=== PATIENT | male | born 1945 | race Caucasian/White ===

== ENCOUNTER 2017-11-08 15:34 | Inpatient (IN) ==
[2017-11-08] MEDS ORDERED: Ipratropium/Albuterol Neb 3 ML IH ONE ×2 (15:44→17:06)
[2017-11-08] MEDS ORDERED: methylPREDNISolone 125 MG/2 ML VIAL IVP ONE (15:44)
--- NOTE | 2017-11-08 15:44 | Emergency Department Note ---
Disposition Clinical Impression: COPD exacerbation Chest pain Qualifiers: Chest pain type: unspecified Qualified Code(s): R07.9 - Chest pain, unspecified Disposition: Admitted As Inpatient Condition: Fair Referrals: NONE,PCP [Primary Care Provider] - Forms: ED Satisfaction Letter Time of Disposition: 16:48 Chest Pain HPI - General Chief Complaint: ED Chest Pain Stated Complaint: CP Time Seen by Provider: 11/08/17 15:38 Source: patient Mode of arrival: ambulatory Limitations: no limitations Vital Signs Reviewed: Yes Nursing Notes Reviewed: Yes - History of Present Illness HPI Narrative: 71-year-old whose had a previous heart attack comes in complaining of chest pain that began about 11 AM. States is similar to what he had with his previous IA. Pt complaint: chest pain Onset (ago): [employer] Duration: constant Onset: during rest Pain Location: substernal, left chest Severity scale (1-10): 10 Quality: tightness, aching Pain Radiation: none Improves with: nothing Worsens with: nothing Associated symptoms: Reports: nausea Treatments prior to arrival chest pain: none - Related Data Home Medications Medication Instructions Recorded Confirmed ALPRAZolam [Xanax 0.25 MG Tablet] 0.25 mg PO HS 11/08/17 11/08/17 Aspirin [Lo-Dose Aspirin EC] 81 mg PO DAILY 11/08/17 11/08/17 Clopidogrel [Plavix] 75 mg PO DAILY 11/08/17 11/08/17 Terazosin HCl 10 mg PO HS 11/08/17 11/08/17 Zolpidem Tartrate [Zolpidem 5 mg PO HS 11/08/17 11/08/17 Tartrate] amLODIPine [Norvasc] 5 mg PO DAILY 11/08/17 11/08/17 Allergies Allergy/AdvReac Type Severity Reaction Status Date / Time Hydromorphone [From Dilaudid] AdvReac Hallucinati Verified 11/08/17 15:38 ng ketorolac [From Toradol] AdvReac Hallucinati Verified 11/08/17 15:38 ng All systems ED: reviewed and negative except as stated. Constitutional: Denies: fever, chills, weakness, weight change Eyes: Denies: eye pain, eye discharge, vision change ENT ED: Denies: ear pain, throat pain, dental pain, hearing loss, epistaxis, congestion, dysphagia Cardiovascular: Reports: chest pain. Denies: palpitations, dyspnea on exertion , edema, syncope Respiratory: Denies: cough, dyspnea, wheezes, hemoptysis, stridor Gastrointestinal: Denies: abdominal pain, nausea, vomiting, diarrhea, constipation, hematemesis, melena, hematochezia Genitourinary: Denies: urgency, dysuria, frequency, hematuria Musculoskeletal: Denies: back pain, neck pain, arthralgia, myalgia Integumentary: Denies: rash, abrasion, lesions Neurological: Denies: headache, weakness, numbness, paresthesias, confusion, abnormal gait, vertigo Psychiatric: Denies: anxiety, depression, suicidal thoughts, homicidal thoughts , auditory hallucinations, visual hallucinations Endocrine: Denies: fatigue Hematological/Lymphatic: Denies: easy bleeding, easy bruising Allergic/Immunologic: Denies: facial swelling, urticaria Chest Pain PMH - Past Medical History Medical history: Reports: CHF, coronary artery disease, hypertension, myocardial infarction Psychiatric history: Reports: no psych history - Social History Smoking Status: Current every day smoker Alcohol use: Reports: none Drug use: Reports: none Physical Exam - General Limitations: no limitations General appearance: alert - Head Head exam: atraumatic, normocephalic, normal inspection - Eye Eye exam: Present: normal appearance, PERRL, EOMI - ENT ENT exam: normal exam, normal oropharynx, mucous membranes moist - Neck Neck exam: Present: normal inspection, full ROM, trachea midline - Chest Chest inspection: Present: normal inspection, symmetric chest wall rise - Respiratory Respiratory exam: Present: normal lung sounds bilaterally - Cardiovascular Cardiovascular exam: Present: regular rate, normal rhythm, normal heart sounds - Abdominal Exam Abdominal exam: Present: soft, Non-Tender. Absent: tenderness, distention, guarding, rebound, rigidity - Extremities Exam Extremities exam: Present: normal inspection, full ROM. Absent: tenderness, pedal edema - Expanded Lower Extremity Exam Neurovascular/Tendon exam: Absent: motor deficit, sensory deficit, tendon deficit Gait: not tested/not observed - Back Exam Back exam: Present: normal inspection, full ROM. Absent: tenderness - Neurological Exam Neurological exam: Present: alert, oriented X3 - Psychiatric Psychiatric exam: Present: normal affect, normal mood - Skin Skin exam: Present: warm, dry, intact, normal color Course - Reevaluation(s) Reevaluation #1: 71-year-old with a history of COPD and lung disease who comes in complaining of chest pain. Workup included a chest x-ray does show CHF versus worsening interstitial lung disease the patient does have a history of black lung. Patient will be admitted for further evaluation and treatment. Time: 16:47 - Consultations Consultation #1: Discussed with , admit. Time: 16:48 Consultation #2: Discussed with Dr. Roman, will see in consultation. Time: 17:16 Vital Signs Temperature 97.9 F 11/08/17 15:35 Pulse Rate 107 11/08/17 15:35 Respiratory Rate 20 11/08/17 15:35 Blood Pressure 178/98 11/08/17 15:35 O2 Sat by Pulse Oximetry 97 11/08/17 15:35 Temperature 97.9 F 11/08/17 15:35 Pulse Rate 99 11/08/17 16:30 Respiratory Rate 20 11/08/17 17:11 Blood Pressure 151/96 11/08/17 16:30 O2 Sat by Pulse Oximetry 95 11/08/17 17:11 Oxygen Delivery Oxygen Delivery Room Air Chest Pain - Lab Data Lab results reviewed: Yes I reviewed the patient's lab results. Result diagrams: 11/08/17 15:58 11/08/17 15:58 Lab Results 11/08/17 11/08/17 11/08/17 Range/Units 15:58 15:58 15:58 WBC 9.5 (4.3-11.1) K/mcL RBC 5.34 (4.19-5.50) M/mcL Hgb 14.4 (12.9-16.9) g/dL Hct 46.2 (37.5-50.1) % MCV 86.5 (83.0-100.0) fL MCH 27.0 L (28.0-33.3) pg MCHC 31.2 L (31.6-35.5) g/dL RDW 15.9 H (11.5-14.5) % Plt Count 104 L (140-400) K/mcL MPV 10.5 (9.4-12.4) fL Immature Gran % 0.5 (0-4) % Seg Neutrophils % 73.0 % Lymphocytes % 14.0 % Monocytes % 5.5 % Eosinophils % 6.4 % Basophils % 0.6 % Neutrophils # 7.0 (1.6-8.9) K/mcL Lymphocytes # 1.3 (0.6-4.6) K/mcL Monocytes # 0.5 (0.0-1.3) K/mcL Eosinophils # 0.6 (0.0-0.6) K/mcL Basophils # 0.1 (0.0-0.2) K/mcL PT 11.1 (9.4-12.1) Seconds INR 1.0 APTT 27.5 (26.0-36.0) Seconds Sodium 140 (136-145) mEq/L Potassium 4.2 (3.5-4.5) mEq/L Chloride 108 (98-109) mEq/L Carbon Dioxide 23 (19-29) mEq/L BUN 31 H (8-26) mg/dL Creatinine 1.73 H (0.72-1.25) mg/dL Est GFR ( Amer) 47 L (> 60) Est GFR (Non-Af Amer) 39 L (> 60) BUN/Creatinine Ratio 18 (6-26) Glucose 94 (70-99) mg/dL Calculated Osmolality 296 (280-300) Calcium 9.1 (8.6-10.8) mg/dL Troponin I (0-0.03) ng/mL B-Natriuretic Peptide (0-100) pg/mL 11/08/17 11/08/17 Range/Units 15:58 15:58 WBC (4.3-11.1) K/mcL RBC (4.19-5.50) M/mcL Hgb (12.9-16.9) g/dL Hct (37.5-50.1) % MCV (83.0-100.0) fL MCH (28.0-33.3) pg MCHC (31.6-35.5) g/dL RDW (11.5-14.5) % Plt Count (140-400) K/mcL MPV (9.4-12.4) fL Immature Gran % (0-4) % Seg Neutrophils % % Lymphocytes % % Monocytes % % Eosinophils % % Basophils % % Neutrophils # (1.6-8.9) K/mcL Lymphocytes # (0.6-4.6) K/mcL Monocytes # (0.0-1.3) K/mcL Eosinophils # (0.0-0.6) K/mcL Basophils # (0.0-0.2) K/mcL PT (9.4-12.1) Seconds INR APTT (26.0-36.0) Seconds Sodium (136-145) mEq/L Potassium (3.5-4.5) mEq/L Chloride (98-109) mEq/L Carbon Dioxide (19-29) mEq/L BUN (8-26) mg/dL Creatinine (0.72-1.25) mg/dL Est GFR ( Amer) (> 60) Est GFR (Non-Af Amer) (> 60) BUN/Creatinine Ratio (6-26) Glucose (70-99) mg/dL Calculated Osmolality (280-300) Calcium (8.6-10.8) mg/dL Troponin I 0.06 H* (0-0.03) ng/mL B-Natriuretic Peptide 1528 H (0-100) pg/mL - EKG Data EKG attestation: Yes I reviewed and interpreted this EKG. EKG shows normal: sinus rhythm Rate: normal Rhythm: NSR, PVC's Q waves: II, III, aVF Interpretation: no acute changes, other (Q waves inferior leads do not appear to be new) Heart Score - Score History: Moderately Suspicious EKG: Non Specific repolarisation Disturbance Age: Greater than 65 Risk Factors: Equal/Greater than 3 risk factor or history of atherosclerotic disease Troponin: 1-3x normal limit HEART Score Total: 7
[2017-11-08] MEDS ORDERED: Aspirin 81 MG TAB.CHEW PO STA (15:46)
[2017-11-08 16:11] LABS: Basophils # 0.1 K/mcL (0.0-0.2); Basophils % 0.6 %; Eosinophils # 0.6 K/mcL (0.0-0.6); Eosinophils % 6.4 %; Hematocrit 46.2 % (37.5-50.1); Hemoglobin 14.4 g/dL (12.9-16.9); Immature Granulocytes % 0.5 % (0-4); Lymphocytes # 1.3 K/mcL (0.6-4.6); Mean Corpuscular HGB Conc 31.2 g/dL (31.6-35.5); Mean Corpuscular Volume 86.5 fL (83.0-100.0); Mean Platelet Volume 10.5 fL (9.4-12.4); Monocytes # 0.5 K/mcL (0.0-1.3); Monocytes % 5.5 %; Platelet Count 104 K/mcL (140-400); Red Blood Count 5.34 M/mcL (4.19-5.50); Red Cell Distribution Width 15.9 % (11.5-14.5)
[2017-11-08] MEDS ORDERED: *HR* Morphine 2 MG/ML SYRINGE IVP PRN (16:11)
[2017-11-08] MEDS ORDERED: Ondansetron 4 MG/2 ML VIAL IVP ONE (16:11)
[2017-11-08 16:17] LABS: Prothrombin Time 11.1 Seconds (9.4-12.1)
[2017-11-08 16:20] LABS: Activated Partial Thrombo Time 27.5 Seconds (26.0-36.0)
[2017-11-08 16:27] LABS: Calcium 9.1 mg/dL (8.6-10.8); Potassium 4.2 mEq/L (3.5-4.5)
[2017-11-08] MEDS ORDERED: Furosemide 40 MG/4 ML VIAL IVP ONE (16:40)
[2017-11-08] MEDS ORDERED: Levofloxacin 750 MG/150 ML 750 MG/150 ML BAG IVPB ONE (16:50)
--- NOTE | 2017-11-08 17:14 | Internal Med History&Physical ---
Date of Encounter: 11/08/17 Time of Encounter: 17:10 Assessment and Plan (1) CAD (coronary artery disease) Current visit: Yes Status: Acute cabg x 4 with multiple stents cardiology consulted Qualifiers: Coronary Disease-Associated Artery/Lesion type: bypass graft [place] vs. transplanted heart: [place] heart Associated angina: with unstable angina Qualified Code(s): I25.700 - Atherosclerosis of coronary artery bypass graft(s) , unspecified, with unstable angina pectoris (2) CHF (congestive heart failure) Current visit: Yes Status: Acute Acute on chronic systolic heart failure place on IV Lasix and resume home medication Qualifiers: Congestive heart failure type: systolic Congestive heart failure chronicity : acute on chronic Qualified Code(s): I50.23 - Acute on chronic systolic ( congestive) heart failure (3) SULLY (acute kidney injury) Current visit: Yes Status: Acute No prior bnp done here (4) HTN (hypertension) Current visit: Yes Status: Chronic On control with contribution to his chest pain and congestive heart failure Qualifiers: Hypertension type: essential hypertension Qualified Code(s): I10 - Essential (primary) hypertension (5) COPD (chronic obstructive pulmonary disease) Current visit: Yes Status: Chronic Patient actively wheezing was started on steroid low doses and the DuoNeb Qualifiers: COPD type: COPD with acute exacerbation Qualified Code(s): J44.1 - Chronic obstructive pulmonary disease with (acute) exacerbation (6) Elevated troponin Current visit: Yes Status: Acute will trend troponin (7) COPD exacerbation Current visit: Yes Status: Acute (8) Chest pain Current visit: Yes Status: Acute described above cardiology consulted Qualifiers: Chest pain type: unspecified Qualified Code(s): R07.9 - Chest pain, unspecified Internal Medicine - H&P: HPI Chief complaint: chest pain and sob Admitted From: Emergency Dept Plans for Post Hospital Care: Home History of present illness: Mr. Ruggiero is a 71 year old male Patient with history of CAD has a CABG 4 vessel and prior 7 stents done at [facility] prior mi , congestive heart failure,says he was tole his EF is 11% hypertension, smoking history and COPD patient presented emergency room with a chest pain describes are recurrent tightness going across to his neck and across the shoulder similar to prior cardiac events also increased shortness of breath with minimal exertion , PND and orthopnea evaluation in er troponin mildly elevated BNP is 1528 chest x ray consistent with congestive systolic congestive heart failure. Cardiology service been notified from the emergency room in consultation and pateint on exam is also actively wheezing Past Med Surg Social Fam HX - Past Medical History Medical history: CHF, coronary artery disease, hypertension, myocardial infarction Psychiatric history: no psych history - Past Surgical History Surgical History: angioplasty/stent, coronary bypass (CABG) - Social History Smoking Status: Current every day smoker Smokeless Tobacco Status: No Alcohol use: none Drug use: none Internal Medicine - H&P: Meds ALPRAZolam [Xanax 0.25 MG Tablet] 0.25 mg PO HS 11/08/17 [History] Aspirin [Lo-Dose Aspirin EC] 81 mg PO DAILY 11/08/17 [History] Clopidogrel [Plavix] 75 mg PO DAILY 11/08/17 [History] Terazosin HCl 10 mg PO HS 11/08/17 [History] Zolpidem Tartrate [Zolpidem Tartrate] 5 mg PO HS 11/08/17 [History] amLODIPine [Norvasc] 5 mg PO DAILY 11/08/17 [History] 3 Allergy/AdvReac Type Severity Reaction Status Date / Time Hydromorphone [From Dilaudid] AdvReac Hallucinati Verified 11/08/17 15:38 ng ketorolac [From Toradol] AdvReac Hallucinati Verified 11/08/17 15:38 ng All Systems PM: A 10-system review of systems was performed and is negative for pertinent findings except as documented above in the HPI. - Constitutional Constitutional: no chills, no fever(s), no night sweats - EENT Eyes: no change in vision, no discharge, no pain, no photophobia Ears: no ear discharge, no ear pain, no tinnitus Nose, mouth and throat: no dysphagia, no nasal discharge, no neck pain, no sore throat - Cardiovascular Cardiovascular ROS IM: chest pain, dyspnea, dyspnea on exertion - Respiratory Respiratory: dyspnea, dyspnea on exertion, wheezing - Gastrointestinal Gastrointestinal: no abdominal pain, no diarrhea, no hematemesis, no hematochezia, no melena, no nausea, no vomiting - Musculoskeletal Musculoskeletal ROS IM: no numbness, no tingling - Constitutional Vitals: Temp Pulse Resp BP Pulse Ox 97.9 F 99 18 151/96 96 11/08/17 15:35 11/08/17 16:30 11/08/17 16:30 11/08/17 16:30 11/08/17 16:30 - Eye Eye exam: Present: PERRL, conjuntiva pink, sclera anicteric Pupils: Present: PERRL - Respiratory Respiratory exam: Present: prolonged expiratory phase, rhonchi, wheezes - Cardiovascular Cardiovascular exam: Present: RRR, +S3, systolic murmur - GI/Abdominal GI/Abdominal exam: Present: normal bowel sounds, soft, no peritoneal signs. Absent: distended, tenderness - Extremities Exam Extremities exam: Present: pedal edema Internal Med - H&P Results - Labs CBC & Chem 7: 11/08/17 15:58 11/08/17 15:58 Labs: Short CBC 11/08/17 Range/Units 15:58 WBC 9.5 (4.3-11.1) K/mcL Hgb 14.4 (12.9-16.9) g/dL Hct 46.2 (37.5-50.1) % Plt Count 104 L (140-400) K/mcL Neutrophils # 7.0 (1.6-8.9) K/mcL BMP 11/08/17 15:58 Sodium 140 Potassium 4.2 Chloride 108 Carbon Dioxide 23 BUN 31 H Creatinine 1.73 H Glucose 94 Calcium 9.1 Cardiac Enzymes 11/08/17 Range/Units 15:58 Troponin I 0.06 H* (0-0.03) ng/mL - Impressions ITS Impressions Chest X-Ray 11/08/17 15:39 IMPRESSION: Interval worsening interstitial change seen in the mid and lower lung wilson bilaterally, which could be related to progression of COPD or possible acute interstitial pulmonary edema or pneumonitis. D/ / Bryn Galvan MD / Bryn Galvan MD Interpreting Provider: Bryn Galvan MD
[2017-11-08] MEDS ORDERED: Naloxone 0.4 MG/ML INJ IVP PRN (17:22)
[2017-11-08] MEDS ORDERED: *HR* HYDROcodone/Acet 5/325 mg TABLET PO PRN (17:22)
[2017-11-08] MEDS ORDERED: Ipratropium/Albuterol Neb 3 ML IH PRN (17:26)
[2017-11-08] MEDS: *HR* Morphine 2 MG/ML SYRINGE IVP PRN ×2 (19:50→23:45)
[2017-11-08] MEDS: Furosemide 40 MG/4 ML VIAL IVP SCH (19:52)
[2017-11-08] MEDS ORDERED: ALPRAZolam 0.25 MG TABLET PO SCH (21:00)
[2017-11-08] MEDS: Ipratropium/Albuterol Neb 3 ML IH SCH ×2 (21:21→23:00)
[2017-11-08] MEDS: MethylPREDNISolone 40 MG/ML VIAL IVP SCH (23:47)
[2017-11-09 01:05] LABS: Hematocrit 40.3 % (37.5-50.1); Mean Corpuscular HGB Conc 31.3 g/dL (31.6-35.5); Mean Corpuscular Hemoglobin 26.8 pg (28.0-33.3); Mean Corpuscular Volume 85.7 fL (83.0-100.0); Mean Platelet Volume 11.4 fL (9.4-12.4); Platelet Count 101 K/mcL (140-400); Red Cell Distribution Width 15.7 % (11.5-14.5)
[2017-11-09 01:09] LABS: Hemoglobin 12.6 g/dL (12.9-16.9)
[2017-11-09 01:26] LABS: Albumin 3.4 g/dL (3.5-5.0); Albumin/Globulin Ratio 0.8 (1.1-2.2); Bilirubin,Total 0.5 mg/dL (0.2-1.2); Calcium 8.9 mg/dL (8.6-10.8); Chol/HDL Ratio 2.9 (0-4.9); Globulin 4.2 g/dL (2.4-3.5); Magnesium 1.9 mg/dL (1.6-2.6); Potassium 4.8 mEq/L (3.5-4.5); Total Protein 7.6 g/dL (6.0-8.3)
[2017-11-09] MEDS: *HR* Morphine 2 MG/ML SYRINGE IVP PRN ×2 (04:06→08:47)
[2017-11-09] MEDS: Ipratropium/Albuterol Neb 3 ML IH SCH ×3 (04:15→11:09)
[2017-11-09] MEDS ORDERED: *HR* Enoxaparin 40 MG/0.4 ML SYRINGE SQ SCH (06:00)
[2017-11-09] MEDS: Furosemide 40 MG/4 ML VIAL IVP SCH (08:46)
[2017-11-09] MEDS: MethylPREDNISolone 40 MG/ML VIAL IVP SCH (08:46)
[2017-11-09] MEDS ORDERED: Aspirin Enteric Coated 81 MG Tablet PO SCH (09:00)
[2017-11-09] MEDS ORDERED: amLODIPine 5 MG TABLET PO SCH (09:00)
[2017-11-09] MEDS ORDERED: Methyl Salicylate/Menthol 28 GM TUBE TP PRN (11:12)
[2017-11-09] MEDS ORDERED: Albuterol 2.5 MG/3 ML NEBULIZER IH PRN (11:14)
[2017-11-09] MEDS ORDERED: Nicotine 14 MG PATCH.TD24 TD SCH (11:20)
[2017-11-09 12:10] VITALS: BP 104/65
--- NOTE | 2017-11-09 16:28 | Electrocardiograph Report ---
[place] [id number] Test Date: 2017-11-08 Pat Name: Ezra Ruggiero Department: 103 Room: 3B Gender: M Batch Or Continuous Still Operator: ABDULAZIZ : 1945 Requested By: Ken Kiser Order Number: [id number] Reading MD: Iker Jamison DO Measurements Intervals [place] Rate: 97 P: 48 CO: 197 QRS: 117 QRSD: 122 T: -35 QT: 339 QTc: 394 Interpretive Statements SINUS RHYTHM WITH OCCASIONAL VENTRICULAR PREMATURE COMPLEXES INFERIOR MYOCARDIAL INFARCTION, OF INDETERMINATE AGE Electronically Signed On 11-09-2017 16:26:37 EST by Iker Jamison DO
--- NOTE | 2017-11-09 17:49 | Discharge Summary ---
Date of Encounter: 11/09/17 Time of Encounter: 11:00 - Discharge Diagnosis (1) Chest pain Priority: Primary Status: Acute Comments: She presented to the emergency department with complaints of chest pain that he described as a tightness going from right upper chest to right neck, and right shoulder. He reports this is similar to his prior cardiac events. Patient has had a CABG 4 vessel and has had 7 prior cardiac stents., He has had prior HI, CHF, he is still a smoker, and has COPD. The chest pain actually appeared to be musculoskeletal in nature and became worse with movements, and extending right arm above shoulder level. Pain was also reproducible with palpation to right lateral neck. He was given Flexeril that he states did not help. I also ordered muscle drop which was not applied. Patient had elevated troponin. It was flat, adynamic in the setting of acute kidney injury and CHF. EKG was sinus rhythm with occasional PVCs with a rate 97, KS interval 197, QRS 122, QTC 394. Chest x-ray showed interval worsening of interstitial changes seen in the mid lower lung wilson bilaterally. Scattered related to progression of COPD, acute interstitial pulmonary edema, or pneumonitis. At 1410, I was called to patient's room he states that he was not feeling any better. He stated that he was going to sign out AGAINST MEDICAL ADVICE. I discussed with him his renal function as well as affecting his cardiac testing had not been completed and strongly recommended that he stay for continued treatment. He says he is not interested in continuing treatment. He states repeatedly that he just wants to go home and does not want to continue treatment. He states that he has not upset, we have done nothing wrong, he just wants to go home. Patient is alert, oriented, answered questions appropriately. Patient signed out AMA. Qualifiers: Chest pain type: unspecified Qualified Code(s): R07.9 - Chest pain, unspecified (2) COPD exacerbation Priority: Primary Status: Acute Comments: Possible mild exacerbation. Patient with diminished lung sounds throughout posterior wilson. He denies any change in cough. Patient was treated with duo nebs, Levaquin, Solu-Medrol. I will call in a prescription to his pharmacy for Levaquin and a Solu-Medrol taper, as well as Mucinex. (3) CAD (coronary artery disease) Priority: Secondary Status: Chronic Comments: Patient with chest pain as described above. Patient did not state if finish cardiac evaluation and testing. Patient will continue home medications on discharge. Qualifiers: Coronary Disease-Associated Artery/Lesion type: bypass graft [place] vs. transplanted heart: [place] heart Associated angina: with unstable angina Qualified Code(s): I25.700 - Atherosclerosis of coronary artery bypass graft(s) , unspecified, with unstable angina pectoris (4) CHF (congestive heart failure) Priority: Secondary Status: Chronic Comments: Patient with acute on chronic exacerbation. Patient has no echo to compare EF. According to prior documentation, patient reports to admit her that his EF was 11%. Patient with elevated BNP, he states that he had no Lasix at home. I gave him a 5 day supply of low-dose Lasix for home. Qualifiers: Congestive heart failure type: systolic Congestive heart failure chronicity : acute on chronic Qualified Code(s): I50.23 - Acute on chronic systolic ( congestive) heart failure (5) SULLY (acute kidney injury) Priority: Secondary Status: Acute Comments: Patient admitted with initial creatinine of 1.73, elevated to 2.31 today. As going to start gentle IV hydration after I saw the patient, he signed out AMA before we were able to get it started. Patient will need to follow with primary care. (6) HTN (hypertension) Priority: Secondary Status: Chronic Comments: Chronic. Continue home medications. Blood pressure was well controlled today. Qualifiers: Hypertension type: essential hypertension Qualified Code(s): I10 - Essential (primary) hypertension - Discharge Medications Prescriptions: Furosemide [Lasix] 20 mg PO DAILY #5 tablet Home Medications: ALPRAZolam [Xanax 0.25 MG Tablet] 0.25 mg PO HS 11/08/17 [History] Aspirin [Lo-Dose Aspirin EC] 81 mg PO DAILY 11/08/17 [History] Clopidogrel [Plavix] 75 mg PO DAILY 11/08/17 [History] Terazosin HCl 10 mg PO HS 11/08/17 [History] Zolpidem Tartrate [Zolpidem Tartrate] 5 mg PO HS 11/08/17 [History] amLODIPine [Norvasc] 5 mg PO DAILY 11/08/17 [History] Furosemide [Lasix] 20 mg PO DAILY #5 tablet 11/09/17 [Rx] Allergies/Adverse Reactions: 3 Allergy/AdvReac Type Severity Reaction Status Date / Time Hydromorphone [From Dilaudid] AdvReac Hallucinati Verified 11/08/17 15:38 ng ketorolac [From Toradol] AdvReac Hallucinati Verified 11/08/17 15:38 ng Date of admission: 11/08/17 18:42 Primary care physician: PCP NONE Discharging clinician: Karina Encarnacion Anticipated date of discharge: 11/09/17 - Patient Status Disposition: Left Against Medical Advice Condition: Fair Functional capacity at discharge: uses cane/walker Overall status at discharge: patient is not back to baseline - Discharge Instructions Follow Up With: NONE,PCP [Primary Care Provider] - Additional Instructions: Patient signed out AGAINST MEDICAL ADVICE. - Diet and Activity Activity: increase activity as tolerated Diet: advance to your usual diet Hospital course: Mr. Ruggiero is a 71 year old male who presented with atypical chest pain, COPD exacerbation and right neck/arm/shoulder pain. Patient with extensive prior cardiac history. Cardiology consultation was entered due to patient's elevated troponin and CHF. 1410, patient decided that he wanted to leave AMA. He was very clear that he just wanted to go home. I did discuss with him the importance of finishing his testing. He was insistent that he just wanted to go home. He said it was not upset with the care, he states he was very happy with the care here and that he just wanted to go home. I explained that due to his reported decreased ejection fraction and increased serum creatinine, BUNs, and troponin, he would benefit from continued workup and treatment. Again, he states that he wanted to go home. He was alert and oriented and answered questions appropriately. I attempted to call his home at 1802 with him that there were other prescriptions for him at the pharmacy. Did not receive an answer at home. We will try again before I leave. - Time Spent with Patient Total time spent providing and/or coordinating discharge services: - Constitutional Vitals: Temp Pulse Resp BP Pulse Ox 97.3 F L 90 17 104/65 91 11/09/17 12:09 11/09/17 12:09 11/09/17 12:09 11/09/17 12:09 11/09/17 12:09 General appearance: Present: cooperative, mild distress, pleasant, no acute distress, answers questions appropriately - Head Head exam: Present: atraumatic, normal inspection, normocephalic - Eye Eye exam: Present: normal appearance, conjuntiva pink, sclera anicteric - Neck Neck exam general surgery: Present: supple, trachea midline. Absent: lymphadenopathy - Respiratory Respiratory exam: Present: chest wall tenderness, CTAB, rhonchi. Absent: accessory muscle use, rales, wheezes - Cardiovascular Cardiovascular exam: Present: RRR, +S1, +S2. Absent: diastolic murmur, gallop, rubs, systolic murmur - GI/Abdominal GI/Abdominal exam: Present: normal bowel sounds, soft, no peritoneal signs. Absent: hepatomegaly, tenderness - Extremities Exam Extremities exam: Present: warm, radial pulses palpable and symmetrical. Absent : calf tenderness, cyanotic, pedal edema, tenderness - Neurological Exam Neurological exam: Present: alert, oriented X3, no focal deficits. Absent: facial droop, speech deficit - Skin Skin exam: Present: dry, intact, normal color, warm. Absent: rash
[2017-11-10] MEDS ORDERED: *HR* Enoxaparin 30 MG/0.3 ML SYRINGE SQ SCH (06:00)
[2017-11-10] MEDS ORDERED: Nicotine 14 MG PATCH.TD24 TD SCH ×2 (09:00→11:18)
== END 2017-11-09 14:44 | disposition left against medical advice (07) | DRG 302 ==
LOC: 3BNU 15:34 → EMEROO 15:34 → 3BNU 19:08
PROVIDERS: ADMIT Registered Nurse; ATTEND Registered Nurse

== ENCOUNTER 2019-02-22 17:11 | Inpatient (IN) ==
[2019-02-22] MEDS ORDERED: methylPREDNISolone 125 MG/2 ML VIAL IVP ONE (17:26)
[2019-02-22] MEDS ORDERED: Ipratropium/Albuterol Neb 3 ML IH ONE (17:26)
[2019-02-22] MEDS ORDERED: Nitroglycerin 0.4 MG TAB.SUBL SL PRN (17:29)
[2019-02-22] MEDS ORDERED: Aspirin 81 MG TAB.CHEW PO STA (17:30)
--- NOTE | 2019-02-22 17:33 | Emergency Department Note ---
Disposition Clinical Impression: Chest pain Qualifiers: Chest pain type: unspecified Qualified Code(s): R07.9 - Chest pain, unspecified Disposition: Still a Patient Condition: Good Referrals: Veronica Horowitz CNP [Primary Care Provider] - Time of Disposition: 19:18 General Adult HPI - General Stated complaint: CP Time Seen by Provider: 02/22/19 17:16 Source: patient Mode of arrival: ambulatory Limitations: no limitations Nursing Notes Reviewed: Yes Vital Signs Reviewed: Yes - History of Present Illness HPI Narrative: Patient is a 73-year-old male that since emergency Department with reports of chest pain. Patient states the pain is located in the center of his chest and radiates up into bilateral shoulders and into his right shoulder blade. Patient states that he said previous MIs with cardiac bypass and stent placement. Patient states this feels very similar to his previous MIs. Patient also reports that he has had shortness of breath and nausea with a little bit of vomiting. Patient denies any diaphoresis. Patient states that his pain has been constant and he feels that he cannot take it anymore. Patient states that all of his stents were placed after his cardiac bypass which he thinks was in 2006. - Related Data Home Medications Medication Instructions Recorded Confirmed ALPRAZolam [Xanax 0.25 MG Tablet] 0.25 mg PO HS 11/08/17 11/08/17 Aspirin [Lo-Dose Aspirin EC] 81 mg PO DAILY 11/08/17 11/08/17 Clopidogrel [Plavix] 75 mg PO DAILY 11/08/17 11/08/17 Terazosin HCl 10 mg PO HS 11/08/17 11/08/17 Zolpidem Tartrate 5 mg PO HS 11/08/17 11/08/17 amLODIPine [Norvasc] 5 mg PO DAILY 11/08/17 11/08/17 Previous Rx's Medication Instructions Recorded Furosemide [Lasix] 20 mg PO DAILY #5 tablet 11/09/17 GuaiFENesin ER [Mucinex] 600 mg PO BID #14 tbbp.12hr 11/09/17 Levofloxacin [Levaquin] 750 mg PO DAILY 7 Days #7 tablet 11/09/17 predniSONE [PredniSONE] 10 mg PO DAILY 10 Days #27 tablet 11/09/17 Allergies Allergy/AdvReac Type Severity Reaction Status Date / Time nitroglycerin Allergy See Verified 02/22/19 17:47 Comments hydromorphone [From Dilaudid] AdvReac Hallucinati Verified 11/08/17 15:38 ng ketorolac [From Toradol] AdvReac Hallucinati Verified 11/08/17 15:38 ng All systems ED: reviewed and negative except as stated. Constitutional: Denies: fever Cardiovascular: Reports: chest pain Respiratory: Reports: dyspnea Gastrointestinal: Reports: nausea, vomiting Past Medical History - Past Medical History Medical history: Reports: CHF, coronary artery disease, hypertension, myocardial infarction Surgical history: Reports: angioplasty/stent, appendectomy, coronary bypass (CABG) Psychiatric history: Reports: no psych history - Social History Smoking Status: Current every day smoker Smokeless Tobacco Status: No Alcohol use: Reports: none Drug use: Reports: none Physical Exam - General Limitations: no limitations General appearance: alert, in no apparent distress - Head Head exam: atraumatic, normocephalic - Eye Eye exam: Present: normal appearance, EOMI - Neck Neck exam: Present: normal inspection, full ROM, trachea midline - Respiratory Respiratory exam: Present: wheezes (Diffuse wheezing bilaterally) - Cardiovascular Cardiovascular exam: Present: regular rate, normal rhythm, normal heart sounds, +S1, +S2 - Abdominal Exam Abdominal exam: Present: soft, Non-Tender, normal bowel sounds - Neurological Exam Neurological exam: Present: alert, oriented X3 - Psychiatric Psychiatric exam: Present: normal affect, normal mood - Skin Skin exam: Present: warm, dry, intact Course Vital Signs Temperature 97.8 F 02/22/19 17:43 Pulse Rate 85 02/22/19 17:43 Respiratory Rate 22 02/22/19 17:43 Blood Pressure 142/92 02/22/19 17:43 O2 Sat by Pulse Oximetry 100 02/22/19 17:43 Temperature 97.8 F 02/22/19 17:43 Pulse Rate 76 02/22/19 18:39 Respiratory Rate 24 02/22/19 18:39 Blood Pressure 119/76 02/22/19 18:39 O2 Sat by Pulse Oximetry 100 02/22/19 18:39 Oxygen Delivery Oxygen Delivery Room Air Medical Decision Making - MDM Narrative Medical decision making narrative: Due to patient having significant wheezing on exam patient will receive DuoNeb breathing treatment steroids. Patient also laboratory testing chest x-ray and EKG. Patient will be given aspirin and nitroglycerin glycerin for his chest pain. Patient's laboratory testing were pending at the time of sign out. Chest x-ray showed possible pulmonary edema. Patient will be signed out to the night team of Dr. Marie and Dr. Jovel please see their documentation for final disposition of the patient. - Medical Records Medical records reviewed: Yes I reviewed the patient's medical records. - EKG Data EKG #1 EKG attestation: Yes I reviewed and interpreted this EKG. EKG results narrative: Patient's EKG shows a sinus rhythm at a rate of 80 bpm, PA interval of 205, QRS duration 126, QTc of 472. There is no evidence of STEMI on EKG. There are T- wave inversions in lead 3 and aVF. Attestation Statement - Attestation Attestation: I examined this patient and my medical decision-making was reviewed with the Resident Physician. I agree with the documented findings, disposition and treatment plan as described except to the extent set forth below. [id number] time provided Patient arrives complaining of chest pain. He has a previous history of coronary artery disease. He appears mildly uncomfortable on exam. ECG obtained upon arrival reviewed by me
[2019-02-22] MEDS ORDERED: *HR* FentaNYL (PF) 100 MCG/2 ML VIAL IVP ONE (17:48)
[2019-02-22] MEDS ORDERED: Furosemide 40 MG/4 ML VIAL IVP ONE (19:12)
--- NOTE | 2019-02-22 19:12 | Emergency Department Note ---
Disposition Clinical Impression: Chest pain Disposition: Admitted As Inpatient Condition: Good General Adult HPI - General Chief complaint: ED Chest Pain Stated complaint: CP Time Seen by Provider: 02/22/19 17:16 Source: patient Mode of arrival: ambulatory Limitations: no limitations - History of Present Illness Pain Scale: 10 - Related Data Home Medications Medication Instructions Recorded Confirmed Aspirin [Lo-Dose Aspirin EC] 81 mg PO DAILY 11/08/17 02/22/19 RX: Terazosin HCl 10 mg PO HS 11/08/17 02/22/19 Zolpidem Tartrate 5 mg PO HS 11/08/17 02/22/19 Albuterol Sulfate [Albuterol 2 puff IH Q4HR PRN 02/22/19 02/22/19 Inhaler] Ipratropium/Albuterol Neb [Duoneb] 3 ml IH Q4HR PRN 02/22/19 02/22/19 Metoprolol XL (24 HR) Succ [Toprol 25 mg PO DAILY 02/22/19 02/22/19 XL] Tiotropium [place] [Spiriva 2 inh IH DAILY 02/22/19 02/22/19 Respimat] Previous Rx's Medication Instructions Recorded Furosemide [Lasix] 20 mg PO DAILY #5 tablet 11/09/17 Allergies Allergy/AdvReac Type Severity Reaction Status Date / Time nitroglycerin Allergy See Verified 02/22/19 17:47 Comments hydromorphone [From Dilaudid] AdvReac Hallucinati Verified 11/08/17 15:38 ng ketorolac [From Toradol] AdvReac Hallucinati Verified 11/08/17 15:38 ng Constitutional: Denies: fever Cardiovascular: Reports: chest pain Respiratory: Reports: dyspnea Gastrointestinal: Reports: nausea, vomiting Past Medical History - Past Medical History Medical history: Reports: CHF, coronary artery disease, hypertension, myocardial infarction Surgical history: Reports: angioplasty/stent, appendectomy, coronary bypass (CABG) Psychiatric history: Reports: no psych history - Social History Smoking Status: Current every day smoker Smokeless Tobacco Status: No Alcohol use: Reports: none Drug use: Reports: none Physical Exam - General Limitations: no limitations General appearance: alert, in no apparent distress Course Vital Signs Temperature 97.8 F 02/22/19 17:43 Pulse Rate 85 02/22/19 17:43 Respiratory Rate 22 02/22/19 17:43 Blood Pressure 142/92 02/22/19 17:43 O2 Sat by Pulse Oximetry 100 02/22/19 17:43 Temperature 97.9 F 02/24/19 07:07 Pulse Rate 74 02/24/19 07:07 Respiratory Rate 16 02/24/19 08:00 Blood Pressure 120/77 02/24/19 07:07 O2 Sat by Pulse Oximetry 97 02/24/19 08:00 Oxygen Delivery Oxygen Delivery Room Air Medical Decision Making - Lab Data Result diagrams: 02/24/19 01:53 02/24/19 01:53 Lab Results 02/22/19 02/22/19 02/22/19 Range/Units 18:47 18:47 18:47 WBC 6.2 (4.3-11.1) K/mcL RBC 4.87 (4.19-5.50) M/mcL Hgb 12.4 L (12.9-16.9) g/dL Hct 41.2 (37.5-50.1) % MCV 84.6 (83.0-100.0) fL MCH 25.5 L (28.0-33.3) pg MCHC 30.1 L (31.6-35.5) g/dL RDW 17.1 H (11.5-14.5) % Plt Count 117 L (140-400) K/mcL MPV 10.4 (9.4-12.4) fL Immature Gran % 0.5 (0-4) % Seg Neutrophils % 57.8 % Lymphocytes % 25.8 % Monocytes % 9.0 % Eosinophils % 6.1 % Basophils % 0.8 % Neutrophils # 3.6 (1.6-8.9) K/mcL Lymphocytes # 1.6 (0.6-4.6) K/mcL Monocytes # 0.6 (0.0-1.3) K/mcL Eosinophils # 0.4 (0.0-0.6) K/mcL Basophils # 0.1 (0.0-0.2) K/mcL Sodium 137 (136-145) mEq/L Potassium 3.7 (3.5-5.1) mEq/L Chloride 106 (98-107) mEq/L Carbon Dioxide 22 L (23-29) mEq/L BUN 25 H (8-23) mg/dL Creatinine 1.49 H (0.70-1.30) mg/dL Est GFR ( Amer) 56 L (> 60) Est GFR (Non-Af Amer) 46 L (> 60) BUN/Creatinine Ratio 17 (6-26) Glucose 109 H (70-105) mg/dL Calculated Osmolality 289 (280-300) Calcium 9.1 (8.6-10.3) mg/dL Troponin I 0.04 H* (< 0.04) ng/mL B-Natriuretic Peptide 1762 H (Less than 100) pg/mL Attestation Statement - Attestation Attestation: I examined this patient and my medical decision-making was reviewed with the Resident Physician. I agree with the documented findings, disposition and treatment plan as described except to the extent set forth below. [id number] time provided Patient presents to the emergency department with chest pain. He has a history of multivessel CABG. He appears uncomfortable on exam. ECG and chest x-rays are resulted labs are pending. I have personally reviewed the patient's chest x-ray. Care will be endorsed to the oncoming physician Dr. Jovel at 19:00 pending labs and re-eval. I anticipate this patient requiring admission for further cardiac testing, therapy
[2019-02-22] MEDS ORDERED: *HR* OxyCODONE/APAP 5/325 TABLET PO ONE (20:22)
[2019-02-22 20:25] LABS: Calcium 9.1 mg/dL (8.6-10.3); Potassium 3.7 mEq/L (3.5-5.1); Troponin I 0.04 ng/mL (< 0.04)
[2019-02-22 20:26] LABS: Basophils # 0.1 K/mcL (0.0-0.2); Basophils % 0.8 %; Eosinophils # 0.4 K/mcL (0.0-0.6); Eosinophils % 6.1 %; Hematocrit 41.2 % (37.5-50.1); Hemoglobin 12.4 g/dL (12.9-16.9); Immature Granulocytes % 0.5 % (0-4); Lymphocytes # 1.6 K/mcL (0.6-4.6); Lymphocytes % 25.8 %; Mean Corpuscular HGB Conc 30.1 g/dL (31.6-35.5); Mean Corpuscular Hemoglobin 25.5 pg (28.0-33.3); Mean Corpuscular Volume 84.6 fL (83.0-100.0); Mean Platelet Volume 10.4 fL (9.4-12.4); Monocytes # 0.6 K/mcL (0.0-1.3); Neutrophils # 3.6 K/mcL (1.6-8.9); Platelet Count 117 K/mcL (140-400); Red Blood Count 4.87 M/mcL (4.19-5.50); Red Cell Distribution Width 17.1 % (11.5-14.5); Segmented Neutrophils % 57.8 %
[2019-02-22] MEDS ORDERED: *HR* Morphine 2 MG/ML SYRINGE IVP ONE (20:41)
--- NOTE | 2019-02-22 20:41 | Emergency Department Note ---
Disposition Clinical Impression: Chest pain Qualifiers: Chest pain type: unspecified Qualified Code(s): R07.9 - Chest pain, unspecified Disposition: Admitted As Inpatient Condition: Good Referrals: Veornica Horowitz CNP [Primary Care Provider] - Time of Disposition: 20:52 General Adult HPI - General Chief complaint: ED Chest Pain Stated complaint: CP Time Seen by Provider: 02/22/19 17:16 Source: patient Mode of arrival: ambulatory Limitations: no limitations - History of Present Illness Pain Scale: 10 - Related Data Home Medications Medication Instructions Recorded Confirmed Aspirin [Lo-Dose Aspirin EC] 81 mg PO DAILY 11/08/17 02/22/19 Terazosin HCl 10 mg PO HS 11/08/17 02/22/19 Zolpidem Tartrate 5 mg PO HS 11/08/17 02/22/19 Albuterol Sulfate [Albuterol 2 puff IH Q4HR PRN 02/22/19 02/22/19 Inhaler] Ipratropium/Albuterol Neb [Duoneb] 3 ml IH Q4HR PRN 02/22/19 02/22/19 Metoprolol XL (24 HR) Succ [Toprol 25 mg PO DAILY 02/22/19 02/22/19 XL] Tiotropium [place] [Spiriva 2 inh IH DAILY 02/22/19 02/22/19 Respimat] Previous Rx's Medication Instructions Recorded Furosemide [Lasix] 20 mg PO DAILY #5 tablet 11/09/17 Allergies Allergy/AdvReac Type Severity Reaction Status Date / Time nitroglycerin Allergy See Verified 02/22/19 17:47 Comments hydromorphone [From Dilaudid] AdvReac Hallucinati Verified 11/08/17 15:38 ng ketorolac [From Toradol] AdvReac Hallucinati Verified 11/08/17 15:38 ng Constitutional: Denies: fever Cardiovascular: Reports: chest pain Respiratory: Reports: dyspnea Gastrointestinal: Reports: nausea, vomiting Past Medical History - Past Medical History Medical history: Reports: CHF, coronary artery disease, hypertension, myocardial infarction Surgical history: Reports: angioplasty/stent, appendectomy, coronary bypass (CABG) Psychiatric history: Reports: no psych history - Social History Smoking Status: Current every day smoker Smokeless Tobacco Status: No Alcohol use: Reports: none Drug use: Reports: none Physical Exam - General Limitations: no limitations General appearance: alert, in no apparent distress Course Vital Signs Temperature 97.8 F 02/22/19 17:43 Pulse Rate 85 02/22/19 17:43 Respiratory Rate 22 02/22/19 17:43 Blood Pressure 142/92 02/22/19 17:43 O2 Sat by Pulse Oximetry 100 02/22/19 17:43 Temperature 97.8 F 02/22/19 17:43 Pulse Rate 87 02/22/19 20:30 Respiratory Rate 23 02/22/19 20:30 Blood Pressure 126/82 02/22/19 20:30 O2 Sat by Pulse Oximetry 99 02/22/19 20:30 Oxygen Delivery Oxygen Delivery Room Air Medical Decision Making - MDM Narrative Medical decision making narrative: I assumed care from Dr. Flores, who had evaluated this patient for chest p ain and laboratory studies were pending. The patient had already received treatment for CHF, with a chest x-ray concerning evidence for CHF. BNP was elevated at just over 1700, renal panel showed chronic stable renal insufficiency with creatinine of 1.49. CBC is within acceptable limits. Troponin was 0.04. Patient continued to have pain he is allergic to nitroglycerin, the fentanyl did not help and he requested IV morphine he was given 1 dose of IV morphine and was admitted to the hospital for further evaluation and management. - Lab Data Lab results reviewed: Yes I reviewed the patient's lab results. Result diagrams: 02/22/19 18:47 02/22/19 18:47 Lab Results 02/22/19 02/22/19 02/22/19 Range/Units 18:47 18:47 18:47 WBC 6.2 (4.3-11.1) K/mcL RBC 4.87 (4.19-5.50) M/mcL Hgb 12.4 L (12.9-16.9) g/dL Hct 41.2 (37.5-50.1) % MCV 84.6 (83.0-100.0) fL MCH 25.5 L (28.0-33.3) pg MCHC 30.1 L (31.6-35.5) g/dL RDW 17.1 H (11.5-14.5) % Plt Count 117 L (140-400) K/mcL MPV 10.4 (9.4-12.4) fL Immature Gran % 0.5 (0-4) % Seg Neutrophils % 57.8 % Lymphocytes % 25.8 % Monocytes % 9.0 % Eosinophils % 6.1 % Basophils % 0.8 % Neutrophils # 3.6 (1.6-8.9) K/mcL Lymphocytes # 1.6 (0.6-4.6) K/mcL Monocytes # 0.6 (0.0-1.3) K/mcL Eosinophils # 0.4 (0.0-0.6) K/mcL Basophils # 0.1 (0.0-0.2) K/mcL Sodium 137 (136-145) mEq/L Potassium 3.7 (3.5-5.1) mEq/L Chloride 106 (98-107) mEq/L Carbon Dioxide 22 L (23-29) mEq/L BUN 25 H (8-23) mg/dL Creatinine 1.49 H (0.70-1.30) mg/dL Est GFR ( Amer) 56 L (> 60) Est GFR (Non-Af Amer) 46 L (> 60) BUN/Creatinine Ratio 17 (6-26) Glucose 109 H (70-105) mg/dL Calculated Osmolality 289 (280-300) Calcium 9.1 (8.6-10.3) mg/dL Troponin I 0.04 H* (< 0.04) ng/mL B-Natriuretic Peptide 1762 H (Less than 100) pg/mL - Radiology Data Radiology results reviewed: Yes I reviewed the patient's radiology results.
[2019-02-23] MEDS: *HR* Morphine 2 MG/ML SYRINGE IVP PRN ×4 (01:29→20:45)
[2019-02-23] MEDS ORDERED: Isovue-370 500 ML BOTTLE IVP ONE (01:32)
[2019-02-23] MEDS ORDERED: Naloxone 0.4 MG/ML INJ IVP PRN (01:34)
[2019-02-23] MEDS ORDERED: 0.9 % Sodium Chloride 1,000 ML IVC ONE (01:34)
--- NOTE | 2019-02-23 02:41 | Internal Med History&Physical ---
Date of Encounter: 02/23/19 Time of Encounter: 01:10 Internal Medicine - H&P: HPI Chief complaint: Chest pain Admitted From: Emergency Dept Plans for Post Hospital Care: Home History of present illness: Mr. Ruggiero is a 73 year old male Patient presented to the emergency room with several day history of chest pain. He says that the pain is gradually increased to the point where he could not tolerate it anymore. The pain is located in the center of his chest, radiates to his neck and into his left arm and back. He has history of previous MIs as well as open heart surgery quadruple bypass in 2006. This was performed at [facility]. He has had 7 stents placed, these were performed at [place]. He has had similar pain like this in the past, around 78 months ago but he did not have workup at that time. In the emergency room patient's initial vital signs are within normal limits. Patient's CBC revealed a hemoglobin of 12.4 and platelet count of 117. Patient's BMP showed a sodium of 137, potassium 3.7, creatinine of 1.49 and a GFR of 46. Patient's initial troponin was 0.04 and BNP was 1762. A chest x-ray was performed that revealed cardiomegaly and mild congestive heart failure. EKG showed sinus rhythm with a rate of 80 no evidence of ischemia. Due to his allergy to nitroglycerin, patient was given morphine 4 mg IV as well as aspirin. He was sent to the medical floor for further management. Upon my evaluation, patient still experiencing 10 out of 10 chest pain with radiation to his back. He disclosed his history of abdominal aortic aneurysm, and also indicated that multiple family members have from aortic aneurysm ruptures. He also has a long history of heart attacks on both sides of his family. At that point I ordered another dose of morphine 4 mg and ordered a stat CT angiogram dissection study to be performed. Patient's renal function was borderline so I also ordered a 1 L bolus of IV fluids to be started as well. Patient currently denies abdominal pain, nausea, vomiting, diarrhea and constipation. He says that the morphine does help for about 1 or 2 hours but the n the pain comes back. He has an allergy to Dilaudid and Toradol which causes him to itch uncontrollably, and when he takes nitroglycerin he says that he "goes blind." After the results of the CT angiogram returned, there is no evidence of aortic dissection. There was a 5.7 infrarenal abdominal aortic aneurysm that was seen. Patient was aware of his aneurysm but he does not see a physician for it regularly. 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 The left superficial femoral artery was completely occluded. The bilateral internal iliac arteries were also completely occluded. I spoke with the radiologist directly regarding these findings, and she commented also on a 2.8 cm mass adjacent to the left hilum concerning for primary lung neoplasm or metastatic disease. She also noted a IVC filter. Patient also has history of horseshoe kidney. I discussed the CT angiogram results with the patient. He confirmed that he did have an IVC filter placed about 8 years ago because after his open heart surgery he had "difficulty with blood clots." He also confirmed his history of the horseshoe kidney. He does not take other anti-coagulation. He is a full code. 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," horseshoe kidney, aortic aneurysm in the L lower abdomen Psychiatric history: PTSD - Past Surgical History Surgical History: angioplasty/stent, appendectomy, coronary bypass (CABG) Additional surgical history: 7 stents, CABG (approximately 2006) - Social History Smoking Status: Current every day smoker Packs per day: 1/2 Smokeless Tobacco Status: No Alcohol use: none Drug use: none - Family History Mother Living Status: Cause of : Colon Cancer Hx Family Cardiac Disorders: Yes ("bad heart") Hx Family Cancer: Yes (Colon Cancer) Father Living Status: Cause of : [place] Hx Family Cardiac Disorders: Yes ([place]) Hx Family Cancer: Yes (Lung Cancer) Internal Medicine - H&P: Meds Aspirin [Lo-Dose Aspirin EC] 81 mg PO DAILY 11/08/17 [History] Terazosin HCl 10 mg PO HS 11/08/17 [History] Zolpidem Tartrate 5 mg PO HS 11/08/17 [History] Furosemide [Lasix] 20 mg PO DAILY #5 tablet 11/09/17 [Rx] Albuterol Sulfate [Albuterol Inhaler] 2 puff IH Q4HR PRN 02/22/19 [History] Ipratropium/Albuterol Neb [Duoneb] 3 ml IH Q4HR PRN 02/22/19 [History] Metoprolol XL (24 HR) Succ [Toprol XL] 25 mg PO DAILY 02/22/19 [History] Tiotropium [place] [Spiriva Respimat] 2 inh IH DAILY 02/22/19 [History] Allergy/AdvReac Type Severity Reaction Status Date / Time nitroglycerin Allergy See Verified 02/22/19 17:47 Comments hydromorphone [From Dilaudid] AdvReac Hallucinati Verified 11/08/17 15:38 ng ketorolac [From Toradol] AdvReac Hallucinati Verified 11/08/17 15:38 ng All Systems PM: A 10-system review of systems was performed and is negative for pertinent findings except as documented above in the HPI. - Constitutional Vitals: Temp Pulse Resp BP Pulse Ox 97.6 F 83 16 128/79 93 02/22/19 23:28 02/22/19 23:28 02/22/19 23:28 02/22/19 23:28 02/22/19 23:28 General appearance: Present: cooperative, mild distress, A&O X 3, pleasant, answers questions appropriately. Absent: disheveled Exam: - - Head Head exam: Present: normal inspection - Eye Eye exam: Present: EOMI, normal appearance - Neck Neck exam general surgery: Present: full ROM - Respiratory Respiratory exam: Present: wheezes. Absent: CTAB, rales, rhonchi - Cardiovascular Cardiovascular exam: Present: RRR. Absent: diastolic murmur, systolic murmur - GI/Abdominal GI/Abdominal exam: Present: normal bowel sounds, soft. Absent: tenderness - Extremities Exam Extremities exam: Present: warm, radial pulses palpable and symmetrical. Abse nt: pedal edema, tenderness - Back Exam Back exam: Present: tenderness Additional comments: Tenderness with palpation over left scapula - Neurological Exam Neurological exam: Present: no focal deficits, strengths equal and symetr throughout. Absent: motor sensory deficit, facial droop, speech deficit - Skin Skin exam: Present: dry, normal color, warm Internal Med - H&P Results - Labs CBC & Chem 7: 02/23/19 02:36 02/23/19 02:36 Labs: Short CBC 02/22/19 Range/Units 18:47 WBC 6.2 (4.3-11.1) K/mcL Hgb 12.4 L (12.9-16.9) g/dL Hct 41.2 (37.5-50.1) % Plt Count 117 L (140-400) K/mcL Neutrophils # 3.6 (1.6-8.9) K/mcL BMP 02/22/19 18:47 Sodium 137 Potassium 3.7 Chloride 106 Carbon Dioxide 22 L BUN 25 H Creatinine 1.49 H Glucose 109 H Calcium 9.1 Cardiac Enzymes 02/22/19 Range/Units 18:47 Troponin I 0.04 H* (< 0.04) ng/mL - Impressions ITS Impressions Chest X-Ray 02/22/19 17:26 IMPRESSION: 1. Cardiomegaly with mild congestive heart failure. D/ / 02/22/2019 17:44:01 Lit[facility] Rose MD [facility] Interpreting Provider: Litzy Rose MD - Assessment and Plan (1) Chest pain Current Visit: Yes Status: Acute Assessment and plan: Patient had 1010 chest pain with radiation to his left arm, back and neck. Patient does have relief with morphine, but the pain does return in between doses. Results of CT angiogram dissection study were negative for dissection. Did reveal infrarenal abdominal aortic aneurysm. Continue IV morphine 4 mg as needed Cardiac monitoring Continue to trend troponins Cardiology consult Echocardiogram in the morning Starting heparin drip Qualifiers: Chest pain type: unspecified Qualified Code(s): R07.9 - Chest pain, unspecified (2) Abdominal aortic aneurysm Current Visit: Yes Status: Acute Assessment and plan: Patient has large 5.7 cm infrarenal abdominal aortic aneurysm is low at 4 cm iliac artery aneurysm. Patient was aware of this previously, but states that he does not follow with a vascular surgeon. Vascular surgery consult in the morning Qualifiers: Qualified Code(s): I71.4 - Abdominal aortic aneurysm, without rupture (3) COPD exacerbation Current Visit: No Status: Acute Assessment and plan: Patient was wheezy on exam, and given breathing treatments and steroids in the emergency room. Patient states that his breathing has improved with these. Continue breathing treatments Continue prednisone Supplemental oxygen as needed (4) SULLY (acute kidney injury) Current Visit: No Status: Acute Assessment and plan: Patient appears to have a history of chronic kidney disease. Creatinine of 1.49 in the emergency room initially. Patient was given 1 L IV fluids at the time of CT angiogram study. Repeat labs in the morning (5) Elevated troponin Current Visit: No Status: Acute Assessment and plan: Troponin was 0.04 in the emergency room, on repeat was 0.03. Patient continues to have chest pain which is improved with morphine. Continue morphine IV Continue to trend troponins Echocardiogram in the morning Start heparin drip (6) CHF (congestive heart failure) Current Visit: No Status: Chronic Assessment and plan: Patient was given Lasix in the emergency room, patient was wheezy on exam. No lower extremity edema noted however. Continue to monitor respiratory status Echocardiogram in the morning Qualifiers: Heart failure type: unspecified Heart failure chronicity: unspecified Qualified Code(s): I50.9 - Heart failure, unspecified (7) Horseshoe kidney Current Visit: Yes Status: Acute Assessment and plan: Present since . (8) Thrombocytopenia Current Visit: Yes Status: Acute Assessment and plan: Patient's platelets were low during his previous admission 2 years ago as well. No active bleeding. Continue to monitor (9) Current nicotine use Current Visit: Yes Status: Acute Assessment and plan: Declines nicotine patch (10) DVT prophylaxis Current Visit: Yes Status: Acute Assessment and plan: Heparin drip - Time Spent With Patient Total time spent is greater than 50% in coordination of care (as documented) at patient's floor/unit and/or counseling patient: Greater than 35 minutes
[2019-02-23 03:01] LABS: Hematocrit 37.4 % (37.5-50.1); Hemoglobin 11.9 g/dL (12.9-16.9); Mean Corpuscular HGB Conc 31.8 g/dL (31.6-35.5); Mean Corpuscular Hemoglobin 26.4 pg (28.0-33.3); Mean Corpuscular Volume 83.1 fL (83.0-100.0); Mean Platelet Volume 10.9 fL (9.4-12.4); Platelet Count 117 K/mcL (140-400)
[2019-02-23 03:22] LABS: Calcium 8.4 mg/dL (8.6-10.3)
[2019-02-23] MEDS ORDERED: Albuterol 2.5 MG/3 ML NEBULIZER IH PRN (03:25)
[2019-02-23] MEDS ORDERED: *HR* Heparin 5,000 UNIT/ML VIAL IVP ONE (03:26)
[2019-02-23] MEDS ORDERED: *HR* Heparin 5,000 UNIT/ML VIAL IVP PRN ×2 (03:26)
[2019-02-23] MEDS: Heparin 25,000 UNIT/250 ML D5W 25,000 UNIT/250 ML IV.SOLN IVC SCH (04:30)
[2019-02-23] MEDS: Ipratropium/Albuterol Neb 3 ML IH SCH ×5 (04:35→23:17)
[2019-02-23 04:50] LABS: INR 1.2; Prothrombin Time 13.4 Seconds (9.4-12.1)
[2019-02-23] MEDS ORDERED: predniSONE 20 MG TABLET PO SCH (09:00)
--- NOTE | 2019-02-23 11:00 | Cardiology Consult Note ---
Addendum entered and electronically signed by Silvano Colón MD 02/23/19 12:58: I examined this patient and my medical decision-making was reviewed with the TRAUMA THERAPIST. I agree with the documented findings, disposition and treatment plan as described except to the extent set forth below. A/P: Minimally elevated troponin Lung mass suspicious for malignancy CAD sp CABG with recent [facility] Abdominal aortic aneurysm Trend troponin, repeat EKG given ongoing chest discomfort. Thank you for the consult Silvano Colón MD [facility] Original Note: Date of Encounter: 02/23/19 Time of Encounter: 08:00 Assessment and Plan (1) Elevated troponin Current Visit: No Status: Acute Per cardiology: -Troponins 0.04, negative, 0.04. Appear to be chronically elevated. -Admitted with chest pain, states similar to previous angina, admits to current chest pain. Does report chest pain increases with deep inspiration. -Reports recent LHC 3 months ago at [facility] without intervention. -TTE pending. -On heparin drip. Not on nitro due to allergy. -Will resume asa, BB. Will start statin, imdur. Of note, reports allergy to nitro with visual disturbance, will monitor closely with administration of imdur. Can uptitrate imdur/add norvasc for Chest pain. -Agree with TTE. -Will obtain records from [facility]. -Pending vascular surgery eval and hem/onc eval, review of recent [facility], can consider further ischemic evaluation. -Will continue to monitor. (2) Lung mass Current Visit: Yes Status: Acute Per cardiology: -Lung mass noted. Concern for metastatic lung disease. -Management per primary service. -Recommend Hem/onc evaluation. (3) Abdominal aortic aneurysm Current Visit: Yes Status: Acute Per cardiology: -5.7cm AAA noted. -Vascular surgery consult pending. Appreciate recs. Qualifiers: Qualified Code(s): I71.4 - Abdominal aortic aneurysm, without rupture Discussion w patient/family: The assessment and plan as outlined above was discussed with the patient who expressed understanding and agreement. All questions were answered. Thank you for involving us in the care of your patient. Please call with any questions. Discussed and reviewed with . History of Present Illness Consult date: 02/23/19 Requesting physician: Justin Gonzalez Consult reason: chest pain Chief complaint: chest pain History of present illness: Mr. Ruggiero is a 73 year old male with a relevant past medical history of CAD s/p CABG and PCI, reports recent LHC at [facility] 3 months ago, HTN, HLD, COPD, AAA, [place], CHF, who presented to [facility] with complaints of chest pain. Patient states at rest he had sudden onset of left sided chest pain that radiated into his back and left arm. Reports similar to previous angina. Does report chest pain increases with deep inspiration. Reports shortness of breath. Past Med Surg Social Fam HX - Past Medical History Attestation: Yes The following information was validated with the patient. 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," horseshoe kidney, aortic aneurysm in the L lower abdomen Psychiatric history: PTSD - Past Surgical History Surgical History: angioplasty/stent, appendectomy, coronary bypass (CABG) Additional surgical history: 7 stents, CABG (approximately 2006) - Social History Smoking Status: Current every day smoker Packs per day: 1/2 Smokeless Tobacco Status: No Alcohol use: none Drug use: none - Family History Mother Living Status: Cause of : Colon Cancer Hx Family Cardiac Disorders: Yes ("bad heart") Hx Family Cancer: Yes (Colon Cancer) Father Living Status: Cause of : [place] Hx Family Cardiac Disorders: Yes ([place]) Hx Family Cancer: Yes (Lung Cancer) Medications and Allergies Aspirin [Lo-Dose Aspirin EC] 81 mg PO DAILY 11/08/17 [History] Terazosin HCl 10 mg PO HS 11/08/17 [History] Zolpidem Tartrate 5 mg PO HS 11/08/17 [History] Furosemide [Lasix] 20 mg PO DAILY #5 tablet 11/09/17 [Rx] Albuterol Sulfate [Albuterol Inhaler] 2 puff IH Q4HR PRN 02/22/19 [History] Ipratropium/Albuterol Neb [Duoneb] 3 ml IH Q4HR PRN 02/22/19 [History] Metoprolol XL (24 HR) Succ [Toprol XL] 25 mg PO DAILY 02/22/19 [History] Tiotropium [place] [Spiriva Respimat] 2 inh IH DAILY 02/22/19 [History] Allergy/AdvReac Type Severity Reaction Status Date / Time nitroglycerin Allergy See Verified 02/22/19 17:47 Comments hydromorphone [From Dilaudid] AdvReac Hallucinati Verified 11/08/17 15:38 ng ketorolac [From Toradol] AdvReac Hallucinati Verified 11/08/17 15:38 ng All Systems Review: The remainder of the systems were reviewed and are negative - Cardiovascular Cardiovascular: as per HPI, chest pain at rest, dyspnea on exertion, radiating jaw, neck or arm pain Physical Examination Vital Signs, Last 4 Hours Resp Pulse Ox 02/23/19 10:05 18 98 02/23/19 09:50 98 Vital Signs Temperature 97.8 F 02/22/19 17:43 Pulse Rate 85 02/22/19 17:43 Respiratory Rate 22 02/22/19 17:43 Blood Pressure 142/92 02/22/19 17:43 O2 Sat by Pulse Oximetry 100 02/22/19 17:43 Temperature 97.9 F 02/23/19 06:40 Pulse Rate 92 02/23/19 06:40 Respiratory Rate 18 02/23/19 10:05 Blood Pressure 128/83 02/23/19 06:40 O2 Sat by Pulse Oximetry 98 02/23/19 10:05 Oxygen Delivery Oxygen Delivery Room Air General: Conversant, No Apparent Distress HEENT: Atraumatic, Normocephaly, Mucus Membranes Moist Neck: No JVD, Normal carotid pulses Cardiac: Reg Rate and Rhythm, Normal S1 and S2, No Murmur Lungs: Other (Inspiratory wheezes noted throughout. ) Neuro: Alert and responsive, No focal deficits noted Abdomen: Soft, Non-Tender Skin: No rashes noted on visualized skin Musculoskeletal: No Chest Wall Tenderness Extremities: No Clubbing, No Cyanosis, No Edema, Normal Pulses Results 02/23/19 02:36 02/23/19 02:36 Lab Results Impressions Chest X-Ray 02/22/19 17:26 IMPRESSION: 1. Cardiomegaly with mild congestive heart failure. D/ / 02/22/2019 17:44:01 Litzy Rose MD / [facility] Interpreting Provider: Litzy Rose MD Dissection 02/23/19 01:32 IMPRESSION: 1. No evidence of aortic dissection. There is a 5.7 cm infrarenal abdominal aortic aneurysm. Please see recommendations below. 2. 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 3. The proximal left superficial femoral artery is completely occluded. 4. Bilateral internal iliac arteries are completely occluded. 5. There is a 2.8 cm mass adjacent to the left hilum, concerning for a primary lung neoplasm or metastatic disease. Multiple bilateral pulmonary nodules are seen which are suspicious for metastatic disease. Recommend further evaluation with PET-CT/biopsy. 6. Mediastinal and hilar lymphadenopathy is seen, concerning for neoplastic involvement. 7. Cardiomegaly with small bilateral pleural effusions. Findings suggest mild edema. 8. No evidence of metastatic disease is seen within the abdomen or pelvis. 9. Gallbladder is distended. If there is concern for acute cholecystitis, a right upper quadrant ultrasound is recommended. 10. Colonic diverticulosis. The findings were sent to the Radiology Results Communication Center at 4:10 am on 02/23/2019to be communicated to a licensed caregiver. RECOMMENDATIONS: 5.7 cm AAA Recommend referral to a vascular surgeon. Reference: J Vasc Surg 2009 Oct;50(4 Suppl):S2-49. D/ / 02/23/2019 07:25:54 Yumiko Robbins MD / [facility] Interpreting Provider: Yumiko Robbins MD Active Medications Albuterol Sulfate (Proventil Neb) 2.5 mg IH Q2H PRN PRN Reason: Shortness Of Breath/Wheezing Stop: 08/25/19 03:26 Albuterol/Ipratropium (Duoneb) 3 ml IH QIDR SUSAN Stop: 08/25/19 05:01 Last Admin: 02/23/19 10:04 Dose: 3 ml Aspirin (Aspirin Ec) 81 mg PO DAILY SUSAN Stop: 08/25/19 10:16 Atorvastatin Calcium (Lipitor) 40 mg PO HS SUSAN Stop: 08/25/19 21:01 Guaifenesin (Robitussin/Dm) 5 ml PO Q6HR PRN PRN Reason: Cough Stop: 08/25/19 07:06 Last Admin: 02/23/19 09:57 Dose: 5 ml Heparin Sodium (Porcine) (Heparin) 4,000 unit IVP Q6HR PRN PRN Reason: SEE COMMENTS Stop: 08/25/19 03:27 Heparin Sodium (Porcine) (Heparin) 2,000 unit IVP Q6H PRN PRN Reason: SEE COMMENTS Stop: 08/25/19 03:27 Heparin Sodium/Dextrose (Heparin 25,000 Unit/250 Ml D5w) 25,000 unit in 250 mls @ 8.46 mls/hr IVC .Q24H SUSAN; Protocol Stop: 08/25/19 03:31 Last Admin: 02/23/19 04:30 Dose: 12 unit/kg/hr, 8.5 mls/hr Isosorbide Mononitrate (Imdur) 30 mg PO DAILY [facility] Stop: 08/25/19 11:01 Metoprolol Succinate (Toprol Xl) 25 mg PO DAILY [facility] Stop: 08/25/19 11:01 Morphine Sulfate (Morphine Sulfate) 4 mg IVP Q4HR PRN; Protocol PRN Reason: Chest Pain Stop: 08/25/19 01:17 Last Admin: 02/23/19 06:50 Dose: 4 mg Naloxone HCl (Narcan) 0.4 mg IVP Q2M PRN PRN Reason: SEE COMMENTS Stop: 08/25/19 01:35 Prednisone (Prednisone) 40 mg PO DAILY [facility] Stop: 08/25/19 09:01 Last Admin: 02/23/19 09:57 Dose: 40 mg Laboratory Tests 02/22/19 02/23/19 02/23/19 18:47 02:36 02:36 Hgb 11.9 L Plt Count 117 L Creatinine Troponin I 0.04 H* 0.03 02/23/19 02/23/19 02:36 04:20 Hgb Plt Count Creatinine 1.55 H Troponin I 0.04 H* - Imaging and Cardiology Chest Xray: report reviewed Echo: pending - EKG Interpretation EKG results cardiology: personally reviewed (ECG with SR, HR 88. PVC noted. IV conduction delay noted. Non-specific T wave abnormalities noted, similar to previous.), other (Telemetry reviewed with average HR previous 12 hours noted to be 86, SR. PVCs, PACs noted.) Consult Discharge Plan - Plan Referrals: Veronica Horowitz, TRAUMA THERAPIST [Primary Care Provider] - 03/03/19 1:00 pm
[2019-02-23] MEDS: Aspirin Enteric Coated 81 MG Tablet PO SCH (11:22)
[2019-02-23] MEDS: Metoprolol XL (24 HR) Succ 25 MG TAB.ER.24H PO SCH (11:22)
[2019-02-23] MEDS: Isosorbide MONOnitrate (24 HR) 30 MG TAB.ER.24H PO SCH (11:22)
--- NOTE | 2019-02-23 13:48 | Internal Med Progress Note ---
Hospitalist Progress Note - Encounter Date of Encounter: 02/23/19 Time of Encounter: 12:30 - Subjective Interval History: Mr. Ruggiero is a 73 year old male with a relevant past medical history of CAD s/p CABG and PCI x 7 stents done at [facility], reports recent LHC at [facility] 3 months ago, HTN, HLD, COPD, known AAA, systolic CHF s/p AICD, who presented to [facility] with complaints of chest pain. Patient states at rest he had sudden onset of left sided chest pain that radiated into his back and left arm. Reports similar to previous angina. Does report chest pain increases with deep inspiration. He does also c/o progressively worsening shortness of breath. His CTA of chest showed 5.7 infrarenal abdominal aortic aneurysm that was seen. Patient was aware of his aneurysm but he does not see a physician for it regularly. 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 The left superficial femoral artery was completely occluded. The bilateral internal iliac arteries were also completely occluded. Also have 2.8 cm mass adj acent to the left hilum concerning for primary lung neoplasm or metastatic disease. Patient was admitted in the hospital and started him on heparin drip for his unstable angina. Patient is still complaining about intermittent chest pain. He does have diffuse wheezing to. He denied any cough with expectoration - Exam Vitals: Temp Pulse Resp BP Pulse Ox 97.7 F 79 16 122/76 94 02/23/19 11:31 02/23/19 11:31 02/23/19 11:31 02/23/19 11:31 02/23/19 11:31 Exam: Gen: Alert, awake, Oriented to time,place and person Chest: Diminished breath sounds B/L, diffuse audible wheezing, No crackles, No rales Heart: S1S2+ RRR No murmurs Abd: Soft, NT, BS +, No organomegaly Ext: No edema, pulses are palpable, No calf tenderness Neuro : Benign findings Skin: No rash. - Assessment and Plan (1) Unstable angina Current Visit: Yes Status: Acute Assessment and Plan: Very high risk pt for ACS given his previous cardiac history cont Heparin gtt for now Card is on board will f/u on 2 D Echo Appreciate card recommendations cont ASA, Statin, BB Noticed he is not on dual anti platelet therapy will talk to cardiology to initiate DAPT (2) Lung mass Current Visit: Yes Status: Acute Assessment and Plan: Concerning for malignancy probably primary lung consulted heme onc possible lung nodule biopsy in AM by IR defer to Heme Onc for further work up (3) CKD (chronic kidney disease) stage 3, GFR 30-59 ml/min Current Visit: Yes Status: Acute (4) Tobacco dependence Current Visit: Yes Status: Acute Assessment and Plan: Counseled to quit smoking placed on nicotine patch (5) Abdominal aortic aneurysm Current Visit: Yes Status: Acute Assessment and Plan: consulted vascular surgery probably no intervention at this point cont close monitoring f/u with vascular surgery as an out pt appreciate vascular surgery recommendations (6) COPD exacerbation Current Visit: No Status: Acute Assessment and Plan: He does have moderate to severe COPD exacerbation, with audible wheezing started him on systemic IV steroids continue frequent bronchodilators therapy continue close monitoring (7) Elevated troponin Current Visit: No Status: Acute Assessment and Plan: He does have chronically elevated troponin however he has active chest pain now continue above care (8) CAD (coronary artery disease) Current Visit: No Status: Chronic Assessment and Plan: Resumed all home medications (9) CHF (congestive heart failure) Current Visit: No Status: Chronic Assessment and Plan: Suspecting most likely systolic CHF will follow-up on echocardiogram no previous Echo here to review not in exacerbation resumed all home medications - Time Spent with Patient Total time spent is greater than 50% in coordination of care (as documented) at patient's floor/unit and/or counseling patient: Internal Medicine: Result - Labs CBC & Chem 7: 02/23/19 02:36 02/23/19 02:36 Labs: Short CBC 02/22/19 02/23/19 Range/Units 18:47 02:36 WBC 6.2 3.8 L (4.3-11.1) K/mcL Hgb 12.4 L 11.9 L (12.9-16.9) g/dL Hct 41.2 37.4 L (37.5-50.1) % Plt Count 117 L 117 L (140-400) K/mcL Neutrophils # 3.6 (1.6-8.9) K/mcL BMP 02/22/19 02/23/19 18:47 02:36 Sodium 137 138 Potassium 3.7 4.0 Chloride 106 109 H Carbon Dioxide 22 L 21 L BUN 25 H 24 H Creatinine 1.49 H 1.55 H Glucose 109 H 154 H Calcium 9.1 8.4 L Cardiac Enzymes 02/22/19 02/23/19 02/23/19 Range/Units 18:47 02:36 04:20 Troponin I 0.04 H* 0.03 0.04 H* (< 0.04) ng/mL - ABG Interpretation ABG results: PT/INR, D-dimer PT 13.4 Seconds (9.4-12.1) H 02/23/19 04:20 - Impressions Impressions Chest X-Ray 02/22/19 17:26 IMPRESSION: 1. Cardiomegaly with mild congestive heart failure. D/ / 02/22/2019 17:44:01 Litzy Rose MD [facility] Provider: Litzy Rose MD Dissection 02/23/19 01:32 IMPRESSION: 1. No evidence of aortic dissection. There is a 5.7 cm infrarenal abdominal aortic aneurysm. Please see recommendations below. 2. 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 3. The proximal left superficial femoral artery is completely occluded. 4. Bilateral internal iliac arteries are completely occluded. 5. There is a 2.8 cm mass adjacent to the left hilum, concerning for a primary lung neoplasm or metastatic disease. Multiple bilateral pulmonary nodules are seen which are suspicious for metastatic disease. Recommend further evaluation with PET-CT/biopsy. 6. Mediastinal and hilar lymphadenopathy is seen, concerning for neoplastic involvement. 7. Cardiomegaly with small bilateral pleural effusions. Findings suggest mild edema. 8. No evidence of metastatic disease is seen within the abdomen or pelvis. 9. Gallbladder is distended. If there is concern for acute cholecystitis, a right upper quadrant ultrasound is recommended. 10. Colonic diverticulosis. The findings were sent to the Radiology Results Communication Center at 4:10 am on 02/23/2019to be communicated to a licensed caregiver. RECOMMENDATIONS: 5.7 cm AAA Recommend referral to a vascular surgeon. Reference: J Vasc Surg 2009 Aug;50(4 Suppl):S2-49. D/ / 02/23/2019 07:25:54 Yumiko Robbins MD / kathleen Interpreting Provider: Yumiko Robbins MD Consult Discharge Plan - Plan Referrals: Veronica Horowitz CNP [Primary Care Provider] - 03/03/19 1:00 pm (5) Abdominal aortic aneurysm Qualifiers: Qualified Code(s): I71.4 - Abdominal aortic aneurysm, without rupture (8) CAD (coronary artery disease) Qualifiers: Coronary Disease-Associated Artery/Lesion type: bypass graft [place] vs. transplanted heart: [place] heart Associated angina: with unstable angina Qualified Code(s): I25.700 - Atherosclerosis of coronary artery bypass graft(s), unspecified, with unstable angina pectoris (9) CHF (congestive heart failure) Qualifiers: Heart failure type: unspecified Heart failure chronicity: unspecified Qualified Code(s): I50.9 - Heart failure, unspecified
--- NOTE | 2019-02-23 13:55 | Vascular/Endovasc Consult Note ---
Date of Encounter: 02/23/19 Time of Encounter: 13:30 Assessment and Plan (1) Abdominal aortic aneurysm Current Visit: Yes Status: Chronic The patient is an abdominal aortic aneurysm. His CT scan was reviewed. His aneurysm measures approximately 4.8 cm in transverse diameter. The measurement of 5.[address] report represents an oblique measurement with often overestimates the true size of the aneurysm. The patient also has a 3.8 cm right common iliac artery aneurysm. His aneurysm is juxtarenal and does not appear to have adequate neck for endograft placement. The patient has been aware of his aneurysm for several years. There is no indication for intervention at this time. He denies abdominal, flank, pelvic or back pain. Repeat CT scan is recommended in approximately 6 months. This will be arranged and he will follow-up in vascular clinic. Qualifiers: Qualified Code(s): I71.4 - Abdominal aortic aneurysm, without rupture (2) COPD (chronic obstructive pulmonary disease) Current Visit: No Status: Chronic Qualifiers: COPD type: COPD with acute exacerbation Qualified Code(s): J44.1 - Chronic obstructive pulmonary disease with (acute) exacerbation (3) HTN (hypertension) Current Visit: No Status: Chronic He was counseled regarding atherosclerotic risk factor reduction. Qualifiers: Hypertension type: essential hypertension Qualified Code(s): I10 - Essential (primary) hypertension (4) Tobacco dependence Current Visit: Yes Status: Chronic The patient was counseled regarding smoking cessation. He was advised to continue smoking may worsen his atherosclerosis socially complications including heart attack, stroke, limb loss, or any other and/or . He was also inf ormed that continued smoking may increase the rate of growth of his aneurysm. (5) CAD (coronary artery disease) Current Visit: No Status: Chronic Qualifiers: Coronary Disease-Associated Artery/Lesion type: bypass graft [place] vs. transplanted heart: [place] heart Associated angina: with unstable angina Qualified Code(s): I25.700 - Atherosclerosis of coronary artery bypass graft(s), unspecified, with unstable angina pectoris - History of Present Illness Consult date: 02/23/19 Requesting physician: Justin Gonzalez Consult reason: abdominal aortic aneurysm Chief complaint: chest pain History of present illness: Mr. Ruggiero is a 73 year old male with a history of coronary artery disease, COPD, hypertension, congestive heart failure and tobacco abuse who presented to the emergency room with complaints of chest pain. He reports the chest pain related to his left shoulder and arm. Further evaluation underwent a CT angiogram of the chest abdomen and pelvis to evaluate for a possible dissection. The dissection was not identified. However the patient was noted to have an abdominal aortic aneurysm. The patient denied any abdominal, flank or back pain. He also denied pelvic pain. He was admitted to [facility] and vascular surgery was counseled for further evaluation. The time of evaluation the patient complains of continued chest discomfort. He reports a chronic cough. He denies any abdominal, flank or pelvic or back pain. He denies shortness of breath. 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," horseshoe kidney, aortic aneurysm in the L lower abdomen Psychiatric history: PTSD - Past Surgical History Surgical History: angioplasty/stent, appendectomy, coronary bypass (CABG) Additional surgical history: 7 stents, CABG (approximately 2006) - Social History Smoking Status: Current every day smoker Packs per day: 1/2 Smokeless Tobacco Status: No Alcohol use: none Drug use: none - Family History Father Living Status: Cause of : [place] Hx Family Cardiac Disorders: Yes ([place]) Hx Family Cancer: Yes (Lung Cancer) Mother Living Status: Cause of : Colon Cancer Hx Family Cardiac Disorders: Yes ("bad heart") Hx Family Cancer: Yes (Colon Cancer) Medications and Allergies Aspirin [Lo-Dose Aspirin EC] 81 mg PO DAILY 11/08/17 [History] RX: Terazosin HCl 10 mg PO HS 11/08/17 [History] Zolpidem Tartrate 5 mg PO HS 11/08/17 [History] Furosemide [Lasix] 20 mg PO DAILY #5 tablet 11/09/17 [Rx] Albuterol Sulfate [Albuterol Inhaler] 2 puff IH Q4HR PRN 02/22/19 [History] Ipratropium/Albuterol Neb [Duoneb] 3 ml IH Q4HR PRN 02/22/19 [History] Metoprolol XL (24 HR) Succ [Toprol XL] 25 mg PO DAILY 02/22/19 [History] Tiotropium [place] [Spiriva Respimat] 2 inh IH DAILY 02/22/19 [History] Allergy/AdvReac Type Severity Reaction Status Date / Time nitroglycerin Allergy See Verified 02/22/19 17:47 Comments hydromorphone [From Dilaudid] AdvReac Hallucinati Verified 11/08/17 15:38 ng ketorolac [From Toradol] AdvReac Hallucinati Verified 11/08/17 15:38 ng All Systems Review: The remainder of the systems were reviewed and are negative - Constitutional Constitutional: no chills, no fever(s) - Cardiovascular Cardiovascular: chest pain at rest, radiating jaw, neck or arm pain, no dyspnea at rest, no palpitations - Respiratory Respiratory: cough - Gastrointestinal Gastrointestinal: no abdominal pain, no constipation, no diarrhea - Musculoskeletal Musculoskeletal: no muscle cramps, no muscle weakness Exam Vital Signs, Last 4 Hours Temp Pulse Resp BP Pulse Ox 02/23/19 13:45 120/67 02/23/19 11:31 97.7 F 79 16 122/76 94 02/23/19 10:05 18 98 General: Present: Conversant, No Apparent Distress HEENT: Present: Atraumatic, Normocephaly, Pupils equal Neck: Absent: JVD, Lymphadenopathy, Left Carotid bruit, Right Carotid bruit Cardiac: Present: Reg Rate and Rhythm, Normal S1 and S2 Lungs: Present: Normal Breath Sounds, No Wheeze, Rales, Rhonchi Neuro: Present: Alert and responsive, No focal deficits noted, Motor nerves grossly intact, Sensory nerves grossly intact Abdomen: Present: Soft, Non-tender. Absent: Masses Vascular: Present: Normal capillary refill, Pulse, diminished (pedal signals p resent). Absent: Cyanosis, Edema Skin: Present: No rashes noted on visualized skin Musculoskeletal: Present: No Chest Wall Tenderness Consult Discharge Plan - Plan Referrals: Veronica Horowitz CNP [Primary Care Provider] - 03/03/19 1:00 pm
[2019-02-23] MEDS: MethylPREDNISolone 40 MG/ML VIAL IVP SCH ×2 (15:35→23:11)
--- NOTE | 2019-02-23 16:57 | Oncology Inp Consult Note ---
<Navid De Los Santos - Last Filed: 02/23/19 17:47> Date of Encounter: 02/23/19 Time of Encounter: 17:47 - Data of Consult Requesting Physician: Justin Gonzalez MD Primary Care Provider: Veronica Horowitz CNP Medications and Allergies Aspirin [Lo-Dose Aspirin EC] 81 mg PO DAILY 11/08/17 [History] Terazosin HCl 10 mg PO HS 11/08/17 [History] Zolpidem Tartrate 5 mg PO HS 11/08/17 [History] Furosemide [Lasix] 20 mg PO DAILY #5 tablet 11/09/17 [Rx] Albuterol Sulfate [Albuterol Inhaler] 2 puff IH Q4HR PRN 02/22/19 [History] Ipratropium/Albuterol Neb [Duoneb] 3 ml IH Q4HR PRN 02/22/19 [History] Metoprolol XL (24 HR) Succ [Toprol XL] 25 mg PO DAILY 02/22/19 [History] Tiotropium [place] [Spiriva Respimat] 2 inh IH DAILY 02/22/19 [History] Allergy/AdvReac Type Severity Reaction Status Date / Time nitroglycerin Allergy See Verified 02/22/19 17:47 Comments hydromorphone [From Dilaudid] AdvReac Hallucinati Verified 11/08/17 15:38 ng ketorolac [From Toradol] AdvReac Hallucinati Verified 11/08/17 15:38 ng Consult Discharge Plan - Plan Referrals: Veronica Horowitz CNP [Primary Care Provider] - 03/03/19 1:00 pm Inpatient Charges Provider: Dr. Daniel De Los Santos Consult - Inpatient: [id number] - Attending Attestation I examined this patient and my medical decision-making was reviewed with the Advanced Practice Nurse. I agree with the documented findings, disposition and treatment plan as described except to the extent set forth below. -Will speak with IR if they can perform a biopsy of the 2.8 x 2.1 cm pulmonary nodule adjacent to the left hilum -If not, we will consult pulmonary to perform bronchoscopy with biopsy -Will complete an anemia work up. <Colette Ruiz - Last Filed: 02/24/19 12:28> Date of Encounter: 02/23/19 Assessment and Plan (1) Chest pain Status: Acute Assessment and plan: CAD sp CABG with recent [facility] Cardiology on board, currently on heparin gtt Qualifiers: Chest pain type: unspecified Qualified Code(s): R07.9 - Chest pain, unspecified (2) Lung mass Status: Acute Assessment and plan: CTA chest/abdomen/pelvis reveals a 2.8 cm mass adjacent to the left hilum as well as multiple bilateral pulmonary nodules are seen which are suspicious for metastatic disease. Mediastinal and hilar lymphadenopathy is seen, concerning for neoplastic involvement. No evidence of metastatic disease is seen within the abdomen or pelvis. Plan: Obtain tissue diagnosis with bronchoscopy- Pulmonology consulted, appreciate recommendations Staging workup with MRI brain Further recommendations pending final pathology Will arrange for follow up with Dr. De Los Santos (3) COPD (chronic obstructive pulmonary disease) Status: Chronic Assessment and plan: Diffuse wheezing noted on exam Continue solumedrol and duonebs Further recs per pulmonology Qualifiers: COPD type: COPD with acute exacerbation Qualified Code(s): J44.1 - Chronic obstructive pulmonary disease with (acute) exacerbation - Data of Consult Requesting Physician: Justin Gonzalez MD Primary Care Provider: Veronica Horowitz CNP - Consult Narrative Reason for consult: Left hilar mass, bilateral pulmonary nodules History of present illness: Mr. 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 He was admitted with ACS workup. For concern for AAA dissection, CTA Chest/abdomen/pelvis was obtained. CTA revealed no evidence of aortic dissection. There is a 5.7 cm infrarenal abdominal aortic aneurysm. 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 An IVC filter is in place. The proximal left superficial femoral artery is completely occluded. Bilateral internal iliac arteries are completely occluded. There is a 2.8 cm mass adjacent to the left hilum, concerning for a primary lung neoplasm or metastatic disease. Multiple bilateral pulmonary nodules are seen which are suspicious for metastatic disease. Mediastinal and hilar lymphadenopathy is seen, concerning for neoplastic involvement. No evidence of metastatic disease is seen within the abdomen or pelvis. Patient does endorse about a 20 pound weight loss over the past 1-2 months. He lives at home with his , his grandson has been helping him at home. He endorses significant progressove fatigue. SOB has worsened to the point that he was unable to ambulate from living room to kitchen without a rest break. 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," horseshoe kidney, aortic aneurysm in the L lower abdomen Psychiatric history: PTSD - Past Surgical History Surgical History: angioplasty/stent, appendectomy, coronary bypass (CABG) Additional surgical history: 7 stents, CABG (approximately 2006) - Social History Smoking Status: Current every day smoker Packs per day: 1/2 Smokeless Tobacco Status: No Alcohol use: none Drug use: none - Family History Mother Living Status: Cause of : Colon Cancer Hx Family Cardiac Disorders: Yes ("bad heart") Hx Family Cancer: Yes (Colon Cancer) Father Living Status: Cause of : [place] Hx Family Cardiac Disorders: Yes ([place]) Hx Family Cancer: Yes (Lung Cancer) Constitutional: Present: anorexia, fatigue, weight loss. Absent: chills, fever(s) Eyes: Absent: blurry vision, change in vision Nose, mouth and throat: Absent: dysphagia, odynophagia Cardiovascular: Present: as per HPI Additional comments: continues to report intermittent chest pain Respiratory: Present: cough, dyspnea, wheezing Gastrointestinal: Absent: abdominal pain, nausea, vomiting Genitourinary: Absent: dysuria, hematuria Musculoskeletal: Absent: abnormal gait, numbness, tingling Integumentary: Absent: rash, wounds Neurological: Absent: focal weakness, frequent falls Psychiatric: Present: as per HPI Hematologic/Lymphatic: Present: as per HPI Oncology - Exam - Constitutional General appearance: cooperative, no acute distress, thin, no febrile - Head Head exam: Present: atraumatic - ENT ENT exam: Present: mucous membranes moist, normal oropharynx - Respiratory Respiratory exam: Present: decreased breath sounds, wheezes. Absent: respiratory distress - Cardiovascular Cardiovascular exam: Present: RRR, +S1, +S2 - GI/Abdominal GI/Abdominal exam: Present: normal bowel sounds, soft. Absent: tenderness - Extremities Exam Extremities exam: Present: normal inspection. Absent: calf tenderness - Neurological Exam Neurological exam: Present: alert, oriented X3, no focal deficits, strengths eq ual and symetr throughout - Psychiatric Psychiatric exam: Present: normal affect, normal mood - Skin Skin exam: Present: dry, intact, normal color, warm Inpatient Charges Provider: Dr. Daniel De Los Santos
--- NOTE | 2019-02-23 17:47 | Electrocardiograph Report ---
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
--- NOTE | 2019-02-23 17:56 | Electrocardiograph Report ---
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
[2019-02-23] MEDS ORDERED: Melatonin 3 MG TABLET PO PRN (20:16)
[2019-02-23] MEDS ORDERED: Acetaminophen 325 MG TABLET PO PRN (23:23)
[2019-02-23] MEDS: traMADol 50 MG TABLET PO PRN (23:34)
[2019-02-24 02:13] LABS: Basophils % 0.1 %; Hematocrit 33.3 % (37.5-50.1); Hemoglobin 10.5 g/dL (12.9-16.9); Immature Granulocytes % 1.3 % (0-4); Lymphocytes # 0.5 K/mcL (0.6-4.6); Lymphocytes % 5.4 %; Mean Corpuscular HGB Conc 31.5 g/dL (31.6-35.5); Mean Corpuscular Hemoglobin 26.1 pg (28.0-33.3); Mean Corpuscular Volume 82.8 fL (83.0-100.0); Monocytes # 0.4 K/mcL (0.0-1.3); Monocytes % 4.4 %; Platelet Count 118 K/mcL (140-400); Red Blood Count 4.02 M/mcL (4.19-5.50); Red Cell Distribution Width 17.2 % (11.5-14.5); Segmented Neutrophils % 88.8 %
[2019-02-24 02:21] LABS: Neutrophils # 7.4 K/mcL (1.6-8.9)
[2019-02-24 02:34] LABS: Calcium 8.5 mg/dL (8.6-10.3); Magnesium 2.1 mg/dL (1.6-2.6); Potassium 4.5 mEq/L (3.5-5.1)
[2019-02-24] MEDS: Ipratropium/Albuterol Neb 3 ML IH SCH ×6 (03:36→23:58)
[2019-02-24] MEDS: *HR* Morphine 2 MG/ML SYRINGE IVP PRN ×5 (03:57→21:57)
[2019-02-24] MEDS: Metoprolol XL (24 HR) Succ 25 MG TAB.ER.24H PO SCH (08:11)
[2019-02-24] MEDS: Isosorbide MONOnitrate (24 HR) 30 MG TAB.ER.24H PO SCH (08:11)
[2019-02-24] MEDS: MethylPREDNISolone 40 MG/ML VIAL IVP SCH ×2 (08:11→15:14)
[2019-02-24] MEDS: Aspirin Enteric Coated 81 MG Tablet PO SCH (08:11)
--- NOTE | 2019-02-24 08:37 | Pulmonology Consult Note ---
Date of Encounter: 02/24/19 Time of Encounter: 08:36 Assessment and Plan (1) Lung mass Current Visit: Yes Status: Acute In conclusion this is a pleasant 73-year-old gentleman who presents with chest pain found to have 2.8 cm lung nodule in the left hilar region. He also presents with COPD with acute exacerbation diffuse wheezing which is likely the etiology of his chest pain although cardiology is evaluating him for possible ACS remains on heparin infusion at this time.. I reviewed the CT images and went over them in detail with the patient the l justin would be amenable to biopsy via Fine Needle aspiration with bronchoscopy coupled with endobronchial ultrasound. This also for his ability to evaluate and lymphadenopathy and 2 sample any enlarged lymph nodes as well at that time. Unfortunately patient would not be a poor candidate today to have that procedure done given COPD exacerbation and acute flare. Also he would need to be cleared from cardiology service and I see his echocardiogram is notable for an ejection fraction of 20% is unclear to me if this is a new development or establish diagnosis patient seems to favor a previous diagnosis infected told me that "his heart was pumping only a 10%" at some point - he follows with a tobacco scrap sifter in [facility]. To this end heparin would have to be stopped for at least 4 hours prior to procedure. I suspect that he would need to be treated for COPD exacerbation over the weekend and that we could proceed with bronchoscopy early part of next week. Alternatively patient could be scheduled to have procedure done on an outpatient basis. Recs: Pulmonary standpoint okay to advance diet per today Please send sputum culture and rule out influenza IV methylprednisolone 40 mg 3 times a day over the next 24-48 hours Schedule duo nebs every 4 hours with every one hour albuterol as needed Doxycycline 100 mg twice a day for COPD exacerbation with avoid azithromycin or fluoroquinolones given underlying cardiovascular/peripheral vascular disease Supplemental oxygen if needed to keep saturation greater than 88% Tobacco cessation counseling given I have reviewed and appreciate the oncology evaluation. Pending final recommendations from cardiology Thank you for this consult pulmonary to continue to follow (2) Chest pain Current Visit: Yes Status: Acute Qualifiers: Chest pain type: unspecified Qualified Code(s): R07.9 - Chest pain, unspecified (3) Elevated troponin Current Visit: No Status: Acute (4) COPD exacerbation Current Visit: No Status: Acute (5) Tobacco dependence Current Visit: Yes Status: Acute History of Present Illness Consult date: 02/24/19 Requesting physician: Colette Ruiz Reason for consult: lung mass Chief complaint: Chest Pain History of present illness: This is a very pleasant 73-year-old woman past medical history of CAD CHF peripheral vascular disease and COPD lifelong smoker since the age of 7 also had exposure to agent orange and coal dust. He presented with severe chest pain that started actually on Wednesday he describes it as the 7-10 out of 10 with no radiation to the back. He came in the hospital and had a CT angiogram to rule out AAA which did show a infrarenal AAA aneurysm and iliac aneurysm but nothing emergent. Unfortunately CT scan was also notable for a 2.8 cm nodule adjacent to the left hilum and he had multiple smaller nodules bilaterally also with some hilar and mediastinal lymphadenopathy which is present. He also had troponin elevation which was modest and adynamic but was placed on heparin infusion after evaluation by cardiology currently patient did have recent left heart catheterization ulcer approximately 3 months ago. When I spoke with the patient he was conversational mildly labored but in no distress. He told me that his chest pencil but better than where was on admission but not fully resolved. She remains on heparin infusion. He does endorse a 20 pound weight loss over the last few months and denies any night sweats occasionally he has blood-tinged sputum. He does endorse a chronic cough and has been treated in the past with Symbicort for COPD. I was consulted to evaluate the patient for possible bronchoscopy for diagnosis of this left lung mass. 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," horseshoe kidney, aortic aneurysm in the L lower abdomen Psychiatric history: PTSD - Past Surgical History Surgical History: angioplasty/stent, appendectomy, coronary bypass (CABG) Additional surgical history: 7 stents, CABG (approximately 2006) - Social History Smoking Status: Current every day smoker Packs per day: 1/2 Smokeless Tobacco Status: No Alcohol use: none Drug use: none - Family History Mother Living Status: Cause of : Colon Cancer Hx Family Cardiac Disorders: Yes ("bad heart") Hx Family Cancer: Yes (Colon Cancer) Father Living Status: Cause of : SC Hx Family Cardiac Disorders: Yes (SC) Hx Family Cancer: Yes (Lung Cancer) Medications and Allergies Aspirin [Lo-Dose Aspirin EC] 81 mg PO DAILY 11/08/17 [History] Terazosin HCl 10 mg PO HS 11/08/17 [History] Zolpidem Tartrate 5 mg PO HS 11/08/17 [History] Furosemide [Lasix] 20 mg PO DAILY #5 tablet 11/09/17 [Rx] Albuterol Sulfate [Albuterol Inhaler] 2 puff IH Q4HR PRN 02/22/19 [History] Ipratropium/Albuterol Neb [Duoneb] 3 ml IH Q4HR PRN 02/22/19 [History] Metoprolol XL (24 HR) Succ [Toprol XL] 25 mg PO DAILY 02/22/19 [History] Tiotropium [place] [Spiriva Respimat] 2 inh IH DAILY 02/22/19 [History] Allergy/AdvReac Type Severity Reaction Status Date / Time nitroglycerin Allergy See Verified 02/22/19 17:47 Comments hydromorphone [From Dilaudid] AdvReac Hallucinati Verified 11/08/17 15:38 ng ketorolac [From Toradol] AdvReac Hallucinati Verified 11/08/17 15:38 ng All Systems: The remainder of the systems were reviewed and are negative Physical Examination Vital Signs: Vital Signs, Last 4 Hours Temp Pulse Resp BP Pulse Ox 02/24/19 08:00 16 97 02/24/19 07:07 97.9 F 74 16 120/77 97 General appearance: no acute distress Eyes: nonicteric ENT: oropharynx moist Neck: supple, no lymphadenopathy Effort: mildly labored Auscultation: bilateral: wheezes (Diffuse expiratory wheezes in all lung wilson) Cardiovascular: regular rate and rhythm Gastrointestinal: normoactive bowel sounds, soft, non-tender Integumentary: normal Extremities: no cyanosis, no edema, no clubbing, no ischemia or petechiae Musculoskeletal: no deformities normal mental status, non-focal exam, CN II-XII normal mood appropriate Results - Laboratory Findings CBC and BMP: 02/24/19 01:53 02/24/19 01:53 PT/INR, D-dimer PT 13.4 Seconds (9.4-12.1) H 02/23/19 04:20 Abnormal lab findings: Abnormal lab results RBC 4.02 M/mcL (4.19-5.50) L 02/24/19 01:53 Hgb 10.5 g/dL (12.9-16.9) L 02/24/19 01:53 Hct 33.3 % (37.5-50.1) L 02/24/19 01:53 MCV 82.8 fL (83.0-100.0) L 02/24/19 01:53 MCH 26.1 pg (28.0-33.3) L 02/24/19 01:53 MCHC 31.5 g/dL (31.6-35.5) L 02/24/19 01:53 RDW 17.2 % (11.5-14.5) H 02/24/19 01:53 Plt Count 118 K/mcL (140-400) L 02/24/19 01:53 Lymphocytes # 0.5 K/mcL (0.6-4.6) L 02/24/19 01:53 PT 13.4 Seconds (9.4-12.1) H 02/23/19 04:20 Carbon Dioxide 22 mEq/L (23-29) L 02/24/19 01:53 BUN 34 mg/dL (8-23) H 02/24/19 01:53 Creatinine 2.04 mg/dL (0.70-1.30) H 02/24/19 01:53 Est GFR ( Amer) 39 (> 60) L 02/24/19 01:53 Est GFR (Non-Af Amer) 32 (> 60) L 02/24/19 01:53 Glucose 139 mg/dL (70-105) H 02/24/19 01:53 Calcium 8.5 mg/dL (8.6-10.3) L 02/24/19 01:53 Troponin I 0.04 ng/mL (< 0.04) H* 02/23/19 04:20 B-Natriuretic Peptide 1762 pg/mL (Less than 100) H 02/22/19 18:47 - Diagnostic Findings Chest x-ray: report reviewed, image reviewed CT scan - chest: report reviewed, image reviewed - Clinical Findings Intake & Output: Intake & Output 02/23/19 02/24/19 02/24/19 23:59 07:59 15:59 Intake Total 246 / 246 Output Total 200 / 200 200 / 200 Balance 46 / 46 -189 / -189 Weight 70.8 kg Consult Discharge Plan - Plan Referrals: Veronica Horowitz CNP [Primary Care Provider] - 03/03/19 1:00 pm
--- NOTE | 2019-02-24 08:45 | IR Consult Note ---
Date of Encounter: 02/24/19 Time of Encounter: 08:44 Assessment and Plan (1) Lung mass Current Visit: Yes Status: Acute CT reviewed with attending physician Dr. 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 - 2.8 cm mass adjacent to the left hilum concerning for primary lung neoplasm vs metastatic disease IR consulted for lung mass bx however after reveiwing the CT results and location of the mass, heme/onc notified to consult pulmonology for biopsy of the mass as it is central and this would be a safer option to prevent adverse events from biopsy. Colette Ruiz to consult pulmonology. (2) Abdominal aortic aneurysm Current Visit: No Status: Chronic Noted on CT scan. Pt has hx of AAA, not following a doctor for it at this time. Qualifiers: Qualified Code(s): I71.4 - Abdominal aortic aneurysm, without rupture (3) CAD (coronary artery disease) Current Visit: No Status: Chronic Chronic. Hx of ND, stent x7. Management per primary. Qualifiers: Coronary Disease-Associated Artery/Lesion type: bypass graft [place] vs. transplanted heart: [place] heart Associated angina: with unstable angina Qualified Code(s): I25.700 - Atherosclerosis of coronary artery bypass graft(s), unspecified, with unstable angina pectoris (4) COPD (chronic obstructive pulmonary disease) Current Visit: No Status: Chronic Chronic. Management per primary. Pulmonology consulted. Qualifiers: COPD type: COPD with acute exacerbation Qualified Code(s): J44.1 - Chronic obstructive pulmonary disease with (acute) exacerbation Consult date: 02/24/19 Ordering Clinician: Colette Ruiz Physicians: Justin Gonzalez MD History of present illness: Mr. Ruggiero is a 73 year old male with PMH of previous ND, s/p CABG 2006, stent x 7, CAD, HTN, COPD, and BPH. He presented to the ER with c/o chest pain in the center of his chest w/ radiation to neck and into left arm/back. 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 IR consulted for lung mass biopsy. Consult Comment: Thank you for the consult. Call [facility] with questions or concerns. 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," horseshoe kidney, aortic aneurysm in the L lower abdomen Psychiatric history: PTSD - Past Surgical History Surgical History: angioplasty/stent, appendectomy, coronary bypass (CABG) Additional surgical history: 7 stents, CABG (approximately 2006) - Social History Smoking Status: Current every day smoker Packs per day: 1/2 Smokeless Tobacco Status: No Alcohol use: none Drug use: none - Family History Mother Living Status: Cause of : Colon Cancer Hx Family Cardiac Disorders: Yes ("bad heart") Hx Family Cancer: Yes (Colon Cancer) Father Living Status: Cause of : [place] Hx Family Cardiac Disorders: Yes (ND) Hx Family Cancer: Yes (Lung Cancer) Medications and Allergies Aspirin [Lo-Dose Aspirin EC] 81 mg PO DAILY 11/08/17 [History] Terazosin HCl 10 mg PO HS 11/08/17 [History] Zolpidem Tartrate 5 mg PO HS 11/08/17 [History] Furosemide [Lasix] 20 mg PO DAILY #5 tablet 11/09/17 [Rx] Albuterol Sulfate [Albuterol Inhaler] 2 puff IH Q4HR PRN 02/22/19 [History] Ipratropium/Albuterol Neb [Duoneb] 3 ml IH Q4HR PRN 02/22/19 [History] Metoprolol XL (24 HR) Succ [Toprol XL] 25 mg PO DAILY 02/22/19 [History] Tiotropium [place] [Spiriva Respimat] 2 inh IH DAILY 02/22/19 [History] Allergy/AdvReac Type Severity Reaction Status Date / Time nitroglycerin Allergy See Verified 02/22/19 17:47 Comments hydromorphone [From Dilaudid] AdvReac Hallucinati Verified 11/08/17 15:38 ng ketorolac [From Toradol] AdvReac Hallucinati Verified 11/08/17 15:38 ng Exam Vital Signs, Last 4 Hours Temp Pulse Resp BP Pulse Ox 02/24/19 08:00 16 97 02/24/19 07:07 97.9 F 74 16 120/77 97 Results Reviewed 02/24/19 01:53 02/24/19 01:53 Lab Results 02/24/19 02/24/19 02/23/19 01:53 01:53 04:20 WBC 8.3 D RBC 4.02 L Hgb 10.5 L Hct 33.3 L MCV 82.8 L MCH 26.1 L MCHC 31.5 L RDW 17.2 H Plt Count 118 L MPV 11.0 Neutrophils # 7.4 Lymphocytes # 0.5 L Monocytes # 0.4 Eosinophils # 0.0 Basophils # 0.0 PT 13.4 H INR 1.2 Sodium 137 Potassium 4.5 Chloride 107 Carbon Dioxide 22 L BUN 34 H Creatinine 2.04 H Est GFR ( Amer) 39 L Est GFR (Non-Af Amer) 32 L BUN/Creatinine Ratio 17 Glucose 139 H Calcium 8.5 L Magnesium 2.1 02/23/19 02/23/19 02/22/19 02:36 02:36 18:47 WBC 3.8 L RBC 4.50 Hgb 11.9 L Hct 37.4 L MCV 83.1 MCH 26.4 L MCHC 31.8 RDW 17.0 H Plt Count 117 L MPV 10.9 Neutrophils # Lymphocytes # Monocytes # Eosinophils # Basophils # PT INR Sodium 138 137 Potassium 4.0 3.7 Chloride 109 H 106 Carbon Dioxide 21 L 22 L BUN 24 H 25 H Creatinine 1.55 H 1.49 H Est GFR ( Amer) 54 L 56 L Est GFR (Non-Af Amer) 44 L 46 L BUN/Creatinine Ratio 15 17 Glucose 154 H 109 H Calcium 8.4 L 9.1 Magnesium 02/22/19 18:47 WBC 6.2 RBC 4.87 Hgb 12.4 L Hct 41.2 MCV 84.6 MCH 25.5 L MCHC 30.1 L RDW 17.1 H Plt Count 117 L MPV 10.4 Neutrophils # 3.6 Lymphocytes # 1.6 Monocytes # 0.6 Eosinophils # 0.4 Basophils # 0.1 PT INR Sodium Potassium Chloride Carbon Dioxide BUN Creatinine Est GFR ( Amer) Est GFR (Non-Af Amer) BUN/Creatinine Ratio Glucose Calcium Magnesium Consult Discharge Plan - Plan Referrals: Veronica Horowitz CNP [Primary Care Provider] - 03/03/19 1:00 pm
[2019-02-24] MEDS: Heparin 25,000 UNIT/250 ML D5W 25,000 UNIT/250 ML IV.SOLN IVC SCH (12:24)
--- NOTE | 2019-02-24 12:31 | Oncology Inp Progress Note ---
<Colette Ruiz L - Last Filed: 02/24/19 13:59> Date of Encounter: 02/24/19 Time of Encounter: 11:00 (1) Lung mass Current Visit: Yes Status: Acute Assessment and plan: CTA chest/abdomen/pelvis reveals a 2.8 cm mass adjacent to the left hilum as well as multiple bilateral pulmonary nodules are seen which are suspicious for metastatic disease. Mediastinal and hilar lymphadenopathy is seen, concerning for neoplastic involvement. No evidence of metastatic disease is seen within the abdomen or pelvis. Plan: Obtain tissue diagnosis with bronchoscopy- Pulmonology consulted, appreciate recommendations-may plan for bronchoscopy on Wednesday pending clearance from cardiology standpoint Staging workup with MRI brain--- given borderline renal function, will plan for MRI wo/w contrast potentially Wednesday if renal function improved Further recommendations pending final pathology Follow up arranged with Dr. De Los Santos, March 07 14:10, following biopsy and clearance from medical standpoint, patient may be discharged after biopsy from oncology standpoint Currently on heparin gtt--- appreciate recommendations per cardio/vascular on need for antiplatelet or anticoagulation in setting of extensive cardiovascular history as well as artery occlusions noted on CTA (2) COPD (chronic obstructive pulmonary disease) Current Visit: No Status: Chronic Assessment and plan: Diffuse wheezing noted on exam Continue solumedrol and duonebs Further recs per pulmonology Qualifiers: COPD type: COPD with acute exacerbation Qualified Code(s): J44.1 - Chronic obstructive pulmonary disease with (acute) exacerbation (3) Ischemic cardiomyopathy Current Visit: Yes Status: Chronic Assessment and plan: TTE with LVEF 20% Cardiology recs/management per primary service Known CAD s/p CABG and multiple PCIs (4) Preop cardiovascular exam Current Visit: Yes Status: Acute Assessment and plan: Cardiology note reviewed "With poor functional capacity and co-morbidities, patient would be at high risk for cardiovascular complications in the pablo-operative time period." Oncology: Subj Interval history: Patient is resting comfortably. No acute events noted overnight. States he is hungry and wishing to eat, he was initially made NPO in prep for potential bx today. Denies pain. SOB improved since admission although he has audible wheezes noted. No SOB at rest. - Constitutional General appearance: cooperative, no acute distress, no febrile - Head Head exam: Present: atraumatic - ENT ENT exam: Present: mucous membranes moist, normal oropharynx - Respiratory Respiratory exam: Present: decreased breath sounds, wheezes. Absent: respiratory distress - Cardiovascular Cardiovascular exam: Present: RRR, +S1, +S2 - GI/Abdominal GI/Abdominal exam: Present: normal bowel sounds, soft. Absent: tenderness - Extremities Exam Extremities exam: Present: normal inspection. Absent: calf tenderness - Neurological Exam Neurological exam: Present: alert, oriented X3, no focal deficits, strengths equal and symetr throughout - Psychiatric Psychiatric exam: Present: normal affect, normal mood - Skin Skin exam: Present: dry, intact, normal color, warm Oncology: Obj Data - Labs CBC & Chem 7: 02/24/19 01:53 02/24/19 01:53 Consult Discharge Plan - Plan Referrals: Veronica Horowitz DRUG SAFETY ASSISTANT [Primary Care Provider] - 03/03/19 1:00 pm Inpatient Charges Provider: Dr. Tigist Rodriguez <Rell Rodriguez - Last Filed: 02/24/19 16:34> Date of Encounter: 02/24/19 Oncology: Subj Interval history: Patient seen examined bedside. Diagnostic imaging results reviewed. On anticoagulation for thrombosis. Diagnosis possibly after bronch early next wk. Patient is agreeable to this plan. I examined this patient and my medical decision-making was reviewed with the Advanced Practice Nurse, Colette Ruiz. I agree with the documented findings, disposition and treatment plan as described except to the extent set forth below. Oncology: Obj Data - Labs CBC & Chem 7: 02/24/19 01:53 02/24/19 01:53 Inpatient Charges Provider: Dr. Tigist Rodriguez Follow up - Inpatient: [id number]
--- NOTE | 2019-02-24 12:48 | Cardiology Progress Note ---
Date of Encounter: 02/24/19 Time of Encounter: 10:00 Assessment and Plan (1) Elevated troponin Current Visit: No Status: Acute Per cardiology: -Troponins 0.04, negative, 0.04 in the setting of COPD exacerbation. Appear to be chronically elevated. -Admitted with chest pain, states similar to previous angina, admits to current chest pain. Does report chest pain increases with deep inspiration. -Reports recent LHC 3 months ago at [facility] without intervention. -TTE with LVEF 20%, patient reports chronic. States last LVEF at [facility] was 12%. -On heparin drip, asa, statin, BB, imdur. Not on nitro due to allergy. -Demand ischemia, no cardiac rehab consult warranted. -Suspect chest pain pleuritic. -From cardiac standpoint, ok to discontinue heparin drip. -Cardiology will sign off, re-consult if needed. (2) Lung mass Current Visit: Yes Status: Acute Per cardiology: -Lung mass noted. Concern for metastatic lung disease. -Management per primary service. (3) Abdominal aortic aneurysm Current Visit: No Status: Chronic Per cardiology: -5.7cm AAA noted. -Vascular surgery consulted Qualifiers: Qualified Code(s): I71.4 - Abdominal aortic aneurysm, without rupture (4) Ischemic cardiomyopathy Current Visit: Yes Status: Chronic Per cardiology: -Known ICM, has AICD. -TTE with LVEF 20%. -ON BB. -Euvolemic on exam. -Consider addition of leisa/arb if renal function and BP will tolerate. -Continue BB. (5) Preop cardiovascular exam Current Visit: Yes Status: Acute Per cardiology: -Preop risk stratification for bronchoscopy with biopsy. -LVEF 20%. -Known CAD s/p CABG and multiple PCIs. -Mild troponin elevation. -Poor functional capacity. -With poor functional capacity and co-morbidities, patient would be at high risk for cardiovascular complications in the pablo-operative time period. Discussion w patient/family: The assessment and plan as outlined above was discussed with the patient who expressed understanding and agreement. All questions were answered. Thank you for involving us in the care of your patient. Please call with any questions. Discussed and reviewed with Subjective Principal diagnosis: COPD exacerbation Interval history: Reports chest pain improved today. Complains of shortness of breath. Objective Vital Signs, Last 4 Hours Temp Pulse Resp BP Pulse Ox 02/24/19 11:36 16 92 02/24/19 11:08 97.8 F 73 16 105/66 92 General: Conversant, No Apparent Distress HEENT: Atraumatic, Normocephaly, Mucus Membranes Moist Neck: No JVD, Normal carotid pulses Cardiac: Reg Rate and Rhythm, Normal S1 and S2, No Murmur Lungs: Other (Lung sounds with inspiratory wheezes noted throughout. ) Neuro: Alert and responsive, No focal deficits noted Abdomen: Soft, Non-Tender Skin: No rashes noted on visualized skin Musculoskeletal: No Chest Wall Tenderness Extremities: No Clubbing, No Cyanosis, No Edema, Normal Pulses Results 02/24/19 01:53 02/24/19 01:[address] Dissection 02/23/19 01:32 IMPRESSION: 1. No evidence of aortic dissection. There is a 5.7 cm infrarenal abdominal aortic aneurysm. Please see recommendations below. 2. 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 3. The proximal left superficial femoral artery is completely occluded. 4. Bilateral internal iliac arteries are completely occluded. 5. There is a 2.8 cm mass adjacent to the left hilum, concerning for a primary lung neoplasm or metastatic disease. Multiple bilateral pulmonary nodules are seen which are suspicious for metastatic disease. Recommend further evaluation with PET-CT/biopsy. 6. Mediastinal and hilar lymphadenopathy is seen, concerning for neoplastic involvement. 7. Cardiomegaly with small bilateral pleural effusions. Findings suggest mild edema. 8. No evidence of metastatic disease is seen within the abdomen or pelvis. 9. Gallbladder is distended. If there is concern for acute cholecystitis, a right upper quadrant ultrasound is recommended. 10. Colonic diverticulosis. The findings were sent to the Radiology Results Communication Center at 4:10 am on 02/23/2019to be communicated to a licensed caregiver. RECOMMENDATIONS: 5.7 cm AAA Recommend referral to a vascular surgeon. Reference: J Vasc Surg 2009 Oct;50(4 Suppl):S2-49. D/ / 02/23/2019 07:25:54 Yumiko Robbins MD / kathleen Interpreting Provider: Yumiko Robbins MD Echocardiogram 02/23/19 01:40 Impressions: LVEF 20%. Severely dilated left ventricle. Severe global left ventricular systolic dysfunction. Mild left ventricular diastolic dysfunction. Atypical septal motion consistent with post-operative status. Normal right ventricular size with hypokinesis. Mild aortic regurgitation. Mild aortic stenosis by Doppler. Severity possibly underestimated due to LV dysfunction. Mild-moderate mitral regurgitation. Estimated RVSP is 46 mmHg. Mild-moderate pulmonary hypertension. A device lead was visualized in the right atrium and right ventricle. Left Ventricular Wall Motion: Rest Echo Findings The apex, apical inferior, mid inferior, basal inferior, apical anterior, mid anterior, basal anterior, apical septal, mid inferior septal, basal inferior septal, apical lateral, mid anterior lateral, basal anterior lateral, mid anterior septal, mid inferior lateral, basal anterior septal and basal inferior lateral negron were hypokinetic. Findings: Study Quality * Technically adequate exam. ECG Findings * Sinus rhythm with BBB. Left Ventricle * LVEF 20%. * Severely dilated left ventricle. * Severe global left ventricular systolic dysfunction. * Mild left ventricular diastolic dysfunction. * Atypical septal motion consistent with post-operative status. Right Ventricle * Normal right ventricular size with hypokinesis. Left Atrium * Severely dilated left atrium. Right Atrium * Mildly dilated right atrium. Aortic Valve * Trileaflet aortic valve. * Mildly calcified aortic valve leaflets. * Mild aortic regurgitation. * Mild aortic stenosis by Doppler. Severity possibly underestimated due to LV dysfunction. Mitral Valve * Mildly thickened mitral valve leaflets. * Mild mitral annular calcification * No mitral stenosis. * Mild-moderate mitral regurgitation. Tricuspid Valve * Normal tricuspid valve structure. * Trace tricuspid regurgitation. * Estimated RVSP is 46 mmHg. * Mild-moderate pulmonary hypertension. Pulmonic Valve * Pulmonic valve not well visualized. * Trace pulmonic regurgitation. Aorta * Normally sized aortic root. Pericardium * The pericardium appears normal. IVC * Normal IVC dimensions and inspiratory collapse. Device lead * A device lead was visualized in the right atrium and right ventricle. Pulmonary Artery * Pulmonary artery not well visualized. Active Medications Acetaminophen (Tylenol) 650 mg PO Q6HR PRN PRN Reason: Pain Stop: 08/25/19 23:24 Albuterol Sulfate (Proventil Neb) 2.5 mg IH Q2H PRN PRN Reason: Shortness Of Breath/Wheezing Stop: 08/25/19 03:26 Albuterol/Ipratropium (Duoneb) 3 ml IH [id number] [facility] Stop: 08/25/19 16:01 Last Admin: 02/24/19 11:35 Dose: 3 ml Aspirin (Aspirin Ec) 81 mg PO DAILY [facility] Stop: 08/25/19 10:16 Last Admin: 02/24/19 08:11 Dose: 81 mg Atorvastatin Calcium (Lipitor) 40 mg PO HS [facility] Stop: 08/25/19 21:01 Last Admin: 02/23/19 20:43 Dose: 40 mg Guaifenesin (Robitussin/Dm) 5 ml PO Q6HR PRN PRN Reason: Cough Stop: 08/25/19 07:06 Last Admin: 02/23/19 23:10 Dose: 5 ml Heparin Sodium (Porcine) (Heparin) 4,000 unit IVP Q6HR PRN PRN Reason: SEE COMMENTS Stop: 08/25/19 03:27 Heparin Sodium (Porcine) (Heparin) 2,000 unit IVP Q6H PRN PRN Reason: SEE COMMENTS Stop: 08/25/19 03:27 Heparin Sodium/Dextrose (Heparin 25,000 Unit/250 Ml D5w) 25,000 unit in 250 mls @ 8.46 mls/hr IVC .Q24H [facility]; Protocol Stop: 08/25/19 03:31 Last Admin: 02/24/19 12:24 Dose: 10.07 unit/kg/hr, 7.1 mls/hr Isosorbide Mononitrate (Imdur) 30 mg PO DAILY [facility] Stop: 08/25/19 11:01 Last Admin: 02/24/19 08:11 Dose: 30 mg Melatonin (Melatonin) 1.5 mg PO HS PRN PRN Reason: Insomnia Stop: 08/25/19 20:17 Last Admin: 02/23/19 20:43 Dose: 1.5 mg Methylprednisolone (Solu-Medrol) 40 mg IVP Q8HR [facility] Stop: 08/25/19 16:01 Last Admin: 02/24/19 08:11 Dose: 40 mg Metoprolol Succinate (Toprol Xl) 25 mg PO DAILY [facility] Stop: 08/25/19 11:01 Last Admin: 02/24/19 08:11 Dose: 25 mg Morphine Sulfate (Morphine Sulfate) 2 mg IVP Q4HR PRN; Protocol PRN Reason: Chest Pain Stop: 08/25/19 01:17 Last Admin: 02/24/19 08:22 Dose: 2 mg Naloxone HCl (Narcan) 0.4 mg IVP Q2M PRN PRN Reason: SEE COMMENTS Stop: 08/25/19 01:35 Tramadol HCl (Ultram) 50 mg PO Q6HR PRN PRN Reason: moderate pain Stop: 08/25/19 23:25 Last Admin: 02/23/19 23:34 Dose: 50 mg Laboratory Tests 02/24/19 02/24/19 01:53 01:53 Hgb 10.5 L Creatinine 2.04 H - Imaging and Cardiology Chest Xray: report reviewed Echo: report reviewed - EKG Interpretation EKG results cardiology: other (Telemetry reviewed with average HR previous 12 hours noted to be 74, SR. PVCs and PACs noted.) Consult Discharge Plan - Plan Referrals: Veronica Horowitz CNP [Primary Care Provider] - 03/03/19 1:00 pm
--- NOTE | 2019-02-24 15:36 | Internal Med Progress Note ---
Hospitalist Progress Note - Encounter Date of Encounter: 02/24/19 Time of Encounter: 16:08 - Exam Vitals: Temp Pulse Resp BP Pulse Ox 97.5 F L 85 16 106/57 91 02/24/19 14:55 02/24/19 14:55 02/24/19 15:25 02/24/19 14:55 02/24/19 15:25 Exam: Gen: Alert, awake, Oriented to time,place and person Chest: Diminished breath sounds B/L, diffuse audible wheezing, No crackles, No rales Heart: S1S2+ RRR No murmurs Abd: Soft, NT, BS +, No organomegaly Ext: No edema, pulses are palpable, No calf tenderness Neuro : Benign findings Skin: No rash. - Assessment and Plan (1) COPD exacerbation Current Visit: No Status: Acute Assessment and Plan: moderate to severe COPD exacerbation, with audible wheezing. Continue IV steroids. Add azithromycin. Frequent bronchodilators. (2) CAD (coronary artery disease) Current Visit: No Status: Chronic Assessment and Plan: per hx. With intermittent chest discomfort. Troponin peaked at 0.04 and appears to be chronically elevated. Has known CAD and reported recent C 3 months ago [facility] without intervention. TTE showed EF 20% how her patient reported previous LVEF 12% [facility]. Suspect chest pain pleuritic as worse with deep inspiration. Evaluated by cardiology who suspected chest pain multifactorial with pleuritic in nature and demand ischemia. No cardiac rehabilitation consult warranted. Start ASA. Continue home statin and BB. Of note patient does have an allergy to nitroglycerin however going to trial long-acting nitrate. Monitor on telemetry. (3) CHF (congestive heart failure) Current Visit: No Status: Chronic Assessment and Plan: Acute on chronic systolic heart failure. TTE with EF 20%; previously 12%. Does appear mildly overloaded with SOB. CXR with cardiomegaly and mild CHF. BNP 1762. Not on diuretics at home. Give one-time dose IV Lasix. Repeat CXR in a.m. (4) Abdominal aortic aneurysm Current Visit: Yes Status: Chronic Assessment and Plan: ABD CT showed 4.8 x 5.8 cm abdominal aortic aneurysm. Evaluated by vascular surgery who noted plantar thrombosis often present with AAA and recommended continued surveillance. No indication for heparin gtt. we will clarify need for alternate anticoagulation with vascular surgery. (5) Lung mass Current Visit: Yes Status: Acute Assessment and Plan: Concerning for malignancy probably primary lung. Will need biopsy; bronchoscopy planned on day 02/27/19. Pulmonology and oncology following (6) CKD (chronic kidney disease) stage 3, GFR 30-59 ml/min Current Visit: Yes Status: Acute Assessment and Plan: hx congenital solitary kidney. Has some underlying CKD but baseline known. Creatinine fluctuating while hospitalized. Avoiding IV fluids with mild CHF. Nephrology consulted (7) Tobacco dependence Current Visit: Yes Status: Chronic Assessment and Plan: Counseled to quit smoking placed on nicotine patch (8) Atherosclerosis of [place] arteries of extremities with intermittent claudication, bilateral legs Current Visit: Yes Status: Chronic Assessment and Plan: chronic bilateral internal iliac artery occlusions. He also has a left superficial femoral artery occlusion on his abdominal pelvic CT scan. Evaluated by vascular surgery who noted no indication for intervention at this time and recommended ASA. Can be evaluated further on outpatient basis if needed. - Time Spent with Patient Total time spent is greater than 50% in coordination of care (as documented) at patient's floor/unit and/or counseling patient: Internal Medicine: Result - Labs CBC & Chem 7: 02/24/19 01:53 02/24/19 01:53 Labs: Short CBC 02/24/19 Range/Units 01:53 WBC 8.3 D (4.3-11.1) K/mcL Hgb 10.5 L (12.9-16.9) g/dL Hct 33.3 L (37.5-50.1) % Plt Count 118 L (140-400) K/mcL Neutrophils # 7.4 (1.6-8.9) K/mcL BMP 02/24/19 01:53 Sodium 137 Potassium 4.5 Chloride 107 Carbon Dioxide 22 L BUN 34 H Creatinine 2.04 H Glucose 139 H Calcium 8.5 L - ABG Interpretation ABG results: PT/INR, D-dimer PT 13.4 Seconds (9.4-12.1) H 02/23/19 04:20 - Impressions Impressions CT Dissection 02/23/19 01:32 IMPRESSION: 1. No evidence of aortic dissection. There is a 5.7 cm infrarenal abdominal aortic aneurysm. Please see recommendations below. 2. 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 3. The proximal left superficial femoral artery is completely occluded. 4. Bilateral internal iliac arteries are completely occluded. 5. There is a 2.8 cm mass adjacent to the left hilum, concerning for a primary lung neoplasm or metastatic disease. Multiple bilateral pulmonary nodules are seen which are suspicious for metastatic disease. Recommend further evaluation with PET-CT/biopsy. 6. Mediastinal and hilar lymphadenopathy is seen, concerning for neoplastic involvement. 7. Cardiomegaly with small bilateral pleural effusions. Findings suggest mild edema. 8. No evidence of metastatic disease is seen within the abdomen or pelvis. 9. Gallbladder is distended. If there is concern for acute cholecystitis, a right upper quadrant ultrasound is recommended. 10. Colonic diverticulosis. The findings were sent to the Radiology Results Communication Center at 4:10 am on 02/23/2019to be communicated to a licensed caregiver. RECOMMENDATIONS: 5.7 cm AAA Recommend referral to a vascular surgeon. Reference: J Vasc Surg 2009 Aug;50(4 Suppl):S2-49. D/ / 02/23/2019 07:25:54 Yumiko Robbins MD / kathleen Interpreting Provider: Yumiko Robbins MD Echocardiogram 02/23/19 01:40 Impressions: LVEF 20%. Severely dilated left ventricle. Severe global left ventricular systolic dysfunction. Mild left ventricular diastolic dysfunction. Atypical septal motion consistent with post-operative status. Normal right ventricular size with hypokinesis. Mild aortic regurgitation. Mild aortic stenosis by Doppler. Severity possibly underestimated due to LV dysfunction. Mild-moderate mitral regurgitation. Estimated RVSP is 46 mmHg. Mild-moderate pulmonary hypertension. A device lead was visualized in the right atrium and right ventricle. Left Ventricular Wall Motion: Rest Echo Findings The apex, apical inferior, mid inferior, basal inferior, apical anterior, mid anterior, basal anterior, apical septal, mid inferior septal, basal inferior septal, apical lateral, mid anterior lateral, basal anterior lateral, mid anterior septal, mid inferior lateral, basal anterior septal and basal inferior lateral negron were hypokinetic. Findings: Study Quality * Technically adequate exam. ECG Findings * Sinus rhythm with BBB. Left Ventricle * LVEF 20%. * Severely dilated left ventricle. * Severe global left ventricular systolic dysfunction. * Mild left ventricular diastolic dysfunction. * Atypical septal motion consistent with post-operative status. Right Ventricle * Normal right ventricular size with hypokinesis. Left Atrium * Severely dilated left atrium. Right Atrium * Mildly dilated right atrium. Aortic Valve * Trileaflet aortic valve. * Mildly calcified aortic valve leaflets. * Mild aortic regurgitation. * Mild aortic stenosis by Doppler. Severity possibly underestimated due to LV dysfunction. Mitral Valve * Mildly thickened mitral valve leaflets. * Mild mitral annular calcification * No mitral stenosis. * Mild-moderate mitral regurgitation. Tricuspid Valve * Normal tricuspid valve structure. * Trace tricuspid regurgitation. * Estimated RVSP is 46 mmHg. * Mild-moderate pulmonary hypertension. Pulmonic Valve * Pulmonic valve not well visualized. * Trace pulmonic regurgitation. Aorta * Normally sized aortic root. Pericardium * The pericardium appears normal. IVC * Normal IVC dimensions and inspiratory collapse. Device lead * A device lead was visualized in the right atrium and right ventricle. Pulmonary Artery * Pulmonary artery not well visualized. Consult Discharge Plan - Plan Referrals: Veronica Horowitz, [employer] [Primary Care Provider] - 03/03/19 1:00 pm (2) CAD (coronary artery disease) Qualifiers: Coronary Disease-Associated Artery/Lesion type: bypass graft [place] vs. tra nsplanted heart: [place] heart Associated angina: with unstable angina Qualified Code(s): I25.700 - Atherosclerosis of coronary artery bypass graft(s), unspecified, with unstable angina pectoris (3) CHF (congestive heart failure) Qualifiers: Heart failure type: unspecified Heart failure chronicity: unspecified Qualified Code(s): I50.9 - Heart failure, unspecified (4) Abdominal aortic aneurysm Qualifiers: Presence of rupture: without rupture Qualified Code(s): I71.4 - Abdominal aortic aneurysm, without rupture
--- NOTE | 2019-02-24 15:58 | Vascular/[facility] Progress Note ---
Date of Encounter: 02/24/19 Time of Encounter: 15:00 - Assessment and plan (1) Abdominal aortic aneurysm Status: Chronic The patient is a 4.8 x 5.8 cm abdominal aortic aneurysm. The process of his aneurysm is approximately 4.8 cm. Continued surveillance is recommended. He denies any abdominal, flank or back pain. Plantar thrombosis often present with an abdominal aortic aneurysm. There is no indication for heparin at this time. Patient have a repeat CT scan in approximately 6 months. He was advised to seek immediate medical attention for acute onset abdominal, flank or back pain. Qualifiers: Presence of rupture: without rupture Qualified Code(s): I71.4 - Abdominal aortic aneurysm, without rupture (2) Atherosclerosis of [place] arteries of extremities with intermittent claudication, bilateral legs Status: Chronic The patient is a diminished pulse exam. He has chronic bilateral internal iliac artery occlusions. He also has a left superficial femoral artery occlusion on his abdominal pelvic CT scan. He denies disabling claudication, rest pain, ulceration or gangrene. The patient was advised to continue with daily aspirin. There is no indication for intervention at this time. Further evaluation can be performed on an outpatient basis if needed. (3) COPD (chronic obstructive pulmonary disease) Status: Chronic Qualifiers: COPD type: COPD with acute exacerbation Qualified Code(s): J44.1 - Chronic obstructive pulmonary disease with (acute) exacerbation (4) HTN (hypertension) Status: Chronic He was counseled again regarding atherosclerotic risk factor reduction. Qualifiers: Hypertension type: essential hypertension Qualified Code(s): I10 - Essential (primary) hypertension (5) Tobacco dependence Status: Chronic The patient was counseled again regarding smoking cessation. (6) CAD (coronary artery disease) Status: Chronic Qualifiers: Coronary Disease-Associated Artery/Lesion type: bypass graft [place] vs. transplanted heart: [place] heart Associated angina: with unstable angina Qualified Code(s): I25.700 - Atherosclerosis of coronary artery bypass graft(s), unspecified, with unstable angina pectoris - Subjective Interval history: The patient reports continued pain radiating from his chest was left shoulder as well as a cough. He denies any abdominal, flank or back pain. He denies pelvic pain. He denies any fevers or chills overnight. He remained otherwise comfortable. Vital Signs, Last 4 Hours Temp Pulse Resp BP Pulse Ox 02/24/19 15:25 16 91 02/24/19 14:55 97.5 F L 85 16 106/57 91 02/24/19 13:05 79 18 104/63 - Physical Examination General: Present: Conversant, No Apparent Distress HEENT: Present: Pupils equal Neck: Absent: JVD, Left Carotid bruit, Right Carotid bruit Cardiac: Present: Reg Rate and Rhythm, Normal S1 and S2 Lungs: Present: No Wheeze, Rales, Rhonchi Neuro: Present: Alert and responsive, Motor nerves grossly intact, Sensory nerves grossly intact Vascular: Present: Normal capillary refill, Pulse, diminished (Pedal signals present bilaterally). Absent: Cyanosis, Edema Abdomen: Present: Soft, Non-tender. Absent: Masses Skin: Present: No rashes noted on visualized skin Results 02/28/19 06:15 02/28/19 06:15 Lab Results, Last 24 hours 02/24/19 02/24/19 01:53 01:53 WBC 8.3 D Hgb 10.5 L Hct 33.3 L Plt Count 118 L Sodium 137 Potassium 4.5 Chloride 107 Carbon Dioxide 22 L BUN 34 H Creatinine 2.04 H Glucose 139 H Calcium 8.5 L Magnesium 2.1 Consult Discharge Plan - Plan Additional Instructions: Home oxygen has been set up through [employer] in [place]. You will need to call them when you get home to have them deliver equipment. Their number is #[phone]. Follow up with her primary care provider in 3-5 days for reevaluation. Follow up with pulmonology and oncology as scheduled. Have a repeat metabolic panel drawn in 1 week and follow-up in the outpatient nephrology clinic. Take azithromycin 500 mg daily beginning tomorrow (03/01/2019). Continue taking oral prednisone as follows: take 40 mg daily for 3 days, then take 30 mg daily for 3 days, then take 20 mg daily for 3 days, then take 10 mg daily for 3 days, then stop. Return to the emergency department if you have worsening shortness of breath, fevers, chills, chest pain, or if any new concerns arise. Referrals: Ajay Perdomo MD [Non-Partnered Physician] - Gagan Walton MD [Partnered Physician] - (Hospital follow up has been webrequested. Office will contact you with follow up appointment.) Veronica Horowitz CNP [Primary Care Provider] - 03/03/19 1:00 pm Nigel Holden MD [Partnered Physician] - (Hospital follow up has been webrequested. Office will contact you with follow up appointment. ) Rell Rodriguez MD [Partnered Physician] - (Hospital follow up has been webrequested. Office will contact you with follow up appointment.) Prescriptions: RX: Atorvastatin [Lipitor] 40 mg PO HS #30 tablet RX: Budesonide/Formoterol 160/4.5 [Symbicort 160/4.5] 2 puff IH BIDR #1 inh RX: Isosorbide MONOnitrate (24 HR) [Imdur] 30 mg PO DAILY #30 tab.er.24h predniSONE [PredniSONE] 10 mg PO DAILY #30 tablet
[2019-02-24] MEDS ORDERED: Furosemide 40 MG/4 ML VIAL IVP ONE (16:09)
--- NOTE | 2019-02-24 16:27 | Event Note ---
Date of Encounter: 02/24/19 Time of Encounter: 16:[address] Sullivan and no need for any type of anticoagulation at this time however will add Plavix to ASA.
[2019-02-24] MEDS: Azithromycin 500 MG in D5% in Water 250 ML IVPB SCH (17:57)
[2019-02-25] MEDS: MethylPREDNISolone 40 MG/ML VIAL IVP SCH ×4 (01:57→23:37)
[2019-02-25] MEDS: *HR* Morphine 2 MG/ML SYRINGE IVP PRN ×5 (01:59→21:18)
[2019-02-25] MEDS: Ipratropium/Albuterol Neb 3 ML IH SCH ×5 (03:32→19:50)
[2019-02-25 06:04] LABS: Hemoglobin 11.9 g/dL (12.9-16.9); Mean Corpuscular HGB Conc 32.2 g/dL (31.6-35.5); Mean Corpuscular Hemoglobin 26.3 pg (28.0-33.3); Mean Corpuscular Volume 81.9 fL (83.0-100.0); Mean Platelet Volume 10.9 fL (9.4-12.4); Platelet Count 131 K/mcL (140-400); Red Blood Count 4.52 M/mcL (4.19-5.50); Red Cell Distribution Width 17.3 % (11.5-14.5)
[2019-02-25 06:23] LABS: Albumin 3.5 g/dL (3.5-5.7); Albumin/Globulin Ratio 1.2 (1.1-2.2); Bilirubin,Total 0.5 mg/dL (0.3-1.0); Calcium 8.8 mg/dL (8.6-10.3); Globulin 2.9 g/dL (2.4-3.5); Potassium 4.9 mEq/L (3.5-5.1); Total Protein 6.4 g/dL (6.4-8.9)
[2019-02-25 06:27] LABS: Iron 14 mcg/dL (65-175); Lactate Dehydrogenase 172 Units/L (140-271); Transferrin 327 mg/dL (203-362)
[2019-02-25 06:28] LABS: % Iron Saturation 3 % (20-55)
--- NOTE | 2019-02-25 06:37 | Pulmonology Progress Note ---
Date of Encounter: 02/25/19 Time of Encounter: 06:37 Assessment and Plan (1) Lung mass Current Visit: Yes Status: Acute This is concerning for primary lung neoplasm Patient states that he did have a CT scan done at [facility] within the last 3 months I have requested that these records be obtained on an urgent basis Tentative plan for rhonchi Skippy with endobronchial ultrasound/fine-needle aspiration of the lesion on Wednesday Clearly of CT scan from 3 months ago did not show this lesion the likelihood of it being neoplastic is much less and comparison will have to be made (2) Chest pain Current Visit: Yes Status: Acute Cardiology has signed off and his been seen by vascular surgeon. Some of this I suspect is related to her airways disease but even with treatment of this and this has persisted pain control per primary service and would also recommend considering gastrointestinal causes in the differential and consider anti-acid medication such as PPI or H2 eduar Qualifiers: Chest pain type: unspecified Qualified Code(s): R07.9 - Chest pain, unspecified (3) COPD exacerbation Current Visit: No Status: Acute Would continue IV steroids today Continue bronchodilators Start Symbicort 160/4.52 puffs twice a day (4) Tobacco dependence Current Visit: Yes Status: Chronic Tobacco cessation counseling given Recommend DVT prophylaxis while inpatient Subjective Principal diagnosis: COPD exacerbation Interval history: Still complaining of 9/10 chest pain. Otherwise says his breathing is getting a little better Objective PUL Vital signs: Last Vital Signs Temp 98.7 F 02/25/19 02:28 Pulse 88 02/25/19 02:28 Resp 16 02/25/19 02:28 BP 129/64 02/25/19 02:28 Pulse Ox 95 02/25/19 02:28 General appearance: no acute distress Eyes: nonicteric ENT: oropharynx moist Neck: supple, no lymphadenopathy Auscultation: bilateral: wheezes (Diffuse loud expiratory wheezes noted in all lung wilson) Cardiovascular: regular rate and rhythm Gastrointestinal: normoactive bowel sounds, soft, non-tender Integumentary: normal Extremities: no cyanosis, no edema, no clubbing Musculoskeletal: no deformities normal mental status, non-focal exam mood appropriate Results - Laboratory Findings CBC and BMP: 02/25/19 05:33 02/25/19 05:33 PT/INR, D-dimer PT 13.4 Seconds (9.4-12.1) H 02/23/19 04:20 Abnormal lab findings: Abnormal lab results Hgb 11.9 g/dL (12.9-16.9) L 02/25/19 05:33 Hct 37.0 % (37.5-50.1) L 02/25/19 05:33 MCV 81.9 fL (83.0-100.0) L 02/25/19 05:33 MCH 26.3 pg (28.0-33.3) L 02/25/19 05:33 RDW 17.3 % (11.5-14.5) H 02/25/19 05:33 Plt Count 131 K/mcL (140-400) L 02/25/19 05:33 Lymphocytes # 0.5 K/mcL (0.6-4.6) L 02/24/19 01:53 PT 13.4 Seconds (9.4-12.1) H 02/23/19 04:20 Sodium 135 mEq/L (136-145) L 02/25/19 05:33 Carbon Dioxide 22 mEq/L (23-29) L 02/25/19 05:33 BUN 48 mg/dL (8-23) H 02/25/19 05:33 Creatinine 2.34 mg/dL (0.70-1.30) H 02/25/19 05:33 Est GFR ( Amer) 33 (> 60) L 02/25/19 05:33 Est GFR (Non-Af Amer) 27 (> 60) L 02/25/19 05:33 Glucose 141 mg/dL (70-105) H 02/25/19 05:33 Iron 14 mcg/dL (65-175) L 02/25/19 05:33 % Saturation 3 % (20-55) L 02/25/19 05:33 Alkaline Phosphatase 190 Units/L (34-104) H 02/25/19 05:33 Troponin I 0.04 ng/mL (< 0.04) H* 02/23/19 04:20 B-Natriuretic Peptide 1762 pg/mL (Less than 100) H 02/22/19 18:47 - Clinical Findings Intake & Output: Intake & Output 02/24/19 02/24/19 02/25/19 15:59 23:59 07:59 Intake Total 0 / 0 250 / 250 Balance 0 / 0 250 / 250 Weight 70.9 kg Consult Discharge Plan - Plan Referrals: Veronica Horowitz CNP [Primary Care Provider] - 03/03/19 1:00 pm
[2019-02-25 06:42] LABS: Ferritin 66 ng/mL (20-250)
[2019-02-25 06:47] LABS: Folate 6.1 ng/mL (3.0-16.0)
--- NOTE | 2019-02-25 08:19 | Internal Med Progress Note ---
Hospitalist Progress Note - Encounter Date of Encounter: 02/25/19 Time of Encounter: 08:17 - Subjective Interval History: Patient was seen and examined. The patient is being evaluated by multiple specialties. He has had no acute events overnight. He was evaluated for chest pain initially was put on a heparin drip for possible unstable angina due to e levated troponins which have trended down. Eventually the heparin drip has been stopped. He was noted to have an EF of 20% which is known for him on echocardiogram. While he was also had a study to rule out aortic dissection but found an abdominal aortic aneurysm which was evaluated by vascular and for now they plan on just monitoring that with imaging studies down the road. He is also on IV Solu-Medrol as well as Zithromax for COPD exacerbation. He was also noted to have a long nodule/mass which pulmonology is following for an planning to do a bronchoscopy on Wednesday. The patient received IV fluids to prevent IV contrast nephropathy on initial presentation. He also has findings of CHF on his chest x-ray. Kidney function has worsened while he is here. - Exam Vitals: Temp Pulse Resp BP Pulse Ox 98 F 84 17 125/87 94 02/25/19 07:30 02/25/19 07:30 02/25/19 07:30 02/25/19 07:30 02/25/19 07:30 Exam: GEN: NAD CVS: RRR. S1, S2, No m/r/g RESP: Diminished with bibasilar crackles ABD: Soft, NT, ND, +BS EXT: No edema. 2+ DP. No rashes NEURO: Nonfocal - Assessment and Plan (1) COPD exacerbation Current Visit: No Status: Acute Assessment and Plan: Pulmonology is following. Continue IV steroids and Zithromax. Nebs. O2 support as needed. Currently on room air. (2) CAD (coronary artery disease) Current Visit: No Status: Chronic Assessment and Plan: Troponin peaked at 0.04 and appears to be chronically elevated. Has known CAD and reported recent LHC 3 months ago Oscar without intervention. TTE showed EF 20% how her patient reported previous LVEF 12% Oscar. Evaluated by cardiology who suspected chest pain multifactorial with pleuritic in nature and demand i schemia. No cardiac rehabilitation consult warranted. Started on aspirin initially but I stopped it this morning as there is plans for possible bronchoscopy in a couple days. Was also started on Plavix and I stopped that as well. Continue home statin and BB. Continue telemetry. (3) CHF (congestive heart failure) Current Visit: No Status: Chronic Assessment and Plan: Acute on chronic systolic heart failure. TTE with EF 20%; previously 12%. Does appear mildly overloaded with SOB. CXR with cardiomegaly and mild CHF. BNP 1762. Not on diuretics at home. Was given a dose of Lasix 40 mg yesterday. We will hold off on any further diuresis as the patient is on room air and given worsening kidney function.. (4) Abdominal aortic aneurysm Current Visit: Yes Status: Chronic Assessment and Plan: Follow-up with vascular outpatient. Will need repeat imaging. (5) Lung mass Current Visit: Yes Status: Acute Assessment and Plan: Bronchoscopy possibly early next week. Pulmonology is following. Oncology is on board as well. (6) CKD (chronic kidney disease) stage 3, GFR 30-59 ml/min Current Visit: Yes Status: Acute Assessment and Plan: hx congenital solitary kidney. Has some underlying CKD but kidney function seems to have worsened here. Nephrology have been consulted yesterday. (7) Tobacco dependence Current Visit: Yes Status: Chronic Assessment and Plan: Counseled to quit smoking placed on nicotine patch (8) Atherosclerosis of [place] arteries of extremities with intermittent claudication, bilateral legs Current Visit: Yes Status: Chronic Assessment and Plan: chronic bilateral internal iliac artery occlusions. He also has a left superficial femoral artery occlusion on his abdominal pelvic CT scan. Evaluated by vascular surgery who noted no indication for intervention at this time and recommended ASA. Aspirin is on hold for now in anticipation of bronchoscopy with biopsy. Can be evaluated further on outpatient basis if needed. (9) DVT prophylaxis Current Visit: Yes Status: Acute Assessment and Plan: Heparin subcutaneous - Time Spent with Patient Total time spent is greater than 50% in coordination of care (as documented) at patient's floor/unit and/or counseling patient: Internal Medicine: Result - Labs CBC & Chem 7: 02/25/19 05:33 02/25/19 05:33 Labs: Short CBC 02/25/19 Range/Units 05:33 WBC 10.4 (4.3-11.1) K/mcL Hgb 11.9 L (12.9-16.9) g/dL Hct 37.0 L (37.5-50.1) % Plt Count 131 L (140-400) K/mcL BMP 02/25/19 05:33 Sodium 135 L Potassium 4.9 Chloride 105 Carbon Dioxide 22 L BUN 48 H Creatinine 2.34 H Glucose 141 H Calcium 8.8 Liver Function 02/25/19 Range/Units 05:33 Total Bilirubin 0.5 (0.3-1.0) mg/dL AST 14 (13-39) Units/L ALT 17 (7-52) Units/L Alkaline Phosphatase 190 H (34-104) Units/L Albumin 3.5 (3.5-5.7) g/dL - ABG Interpretation ABG results: PT/INR, D-dimer PT 13.4 Seconds (9.4-12.1) H 02/23/19 04:20 Consult Discharge Plan - Plan Referrals: Veronica Horowitz CNP [Primary Care Provider] - 03/03/19 1:00 pm (2) CAD (coronary artery disease) Qualifiers: Coronary Disease-Associated Artery/Lesion type: bypass graft [place] vs. transplanted heart: [place] heart Associated angina: with unstable angina Qualified Code(s): I25.700 - Atherosclerosis of coronary artery bypass graft(s), unspecified, with unstable angina pectoris (3) CHF (congestive heart failure) Qualifiers: Heart failure type: unspecified Heart failure chronicity: unspecified Qualified Code(s): I50.9 - Heart failure, unspecified (4) Abdominal aortic aneurysm Qualifiers: Presence of rupture: without rupture Qualified Code(s): I71.4 - Abdominal aortic aneurysm, without rupture
[2019-02-25] MEDS: Isosorbide MONOnitrate (24 HR) 30 MG TAB.ER.24H PO SCH (08:47)
[2019-02-25] MEDS: Metoprolol XL (24 HR) Succ 25 MG TAB.ER.24H PO SCH (08:47)
[2019-02-25] MEDS: Budesonide/Formoterol 160/4.5 1 PUFF INH IH SCH ×2 (11:06→19:51)
--- NOTE | 2019-02-25 12:37 | Nephrology Progress Note ---
Date of Encounter: 02/25/19 Time of Encounter: 12:37 Subjective Principal diagnosis: COPD exacerbation Objective - Vital Signs Vital signs: Vital Signs Temp Pulse Resp BP Pulse Ox 02/25/19 11:41 97.4 F L 82 17 125/77 96 02/25/19 07:31 16 94 02/25/19 07:30 98 F 84 17 125/87 94 02/25/19 02:28 98.7 F 88 16 129/64 95 02/24/19 22:56 97.7 F 87 16 119/80 94 02/24/19 19:48 18 98 02/24/19 18:56 98.6 F 92 16 98/54 95 02/24/19 17:56 115/65 02/24/19 15:25 16 91 02/24/19 14:55 97.5 F L 85 16 106/57 91 02/24/19 13:05 79 18 104/63 Intake and Output 02/24/19 02/25/19 02/25/19 23:59 07:59 15:59 Intake Total 250 / 250 360 / 360 Balance 250 / 250 360 / 360 Intake: IV Fluids 250 / 250 Zithromax 500 mg In Dextrose 5% 250 / 250 250 ML @ 252 mls/hr IVPB Q24H [facility] Rx#:[id number] Oral 360 / 360 Other: Meal Breakfast Percent of Meal Consumed 100% Weight 70.9 kg Patient Weight 02/25/19 23:59 Weight 70.9 kg - Lab 02/25/19 05:33 02/25/19 05:33 Most recent lab results Calcium 8.8 mg/dL (8.6-10.3) 02/25/19 05:33 Magnesium 2.1 mg/dL (1.6-2.6) 02/24/19 01:53 Consult Discharge Plan - Plan Referrals: Veronica Horowitz CNP [Primary Care Provider] - 03/03/19 1:00 pm
--- NOTE | 2019-02-25 12:37 | Nephrology Progress Note ---
Date of Encounter: 02/25/19 Time of Encounter: 12:37 Subjective Principal diagnosis: COPD exacerbation Objective - Vital Signs Vital signs: Vital Signs Temp Pulse Resp BP Pulse Ox 02/25/19 11:41 97.4 F L 82 17 125/77 96 02/25/19 07:31 16 94 02/25/19 07:30 98 F 84 17 125/87 94 02/25/19 02:28 98.7 F 88 16 129/64 95 02/24/19 22:56 97.7 F 87 16 119/80 94 02/24/19 19:48 18 98 02/24/19 18:56 98.6 F 92 16 98/54 95 02/24/19 17:56 115/65 02/24/19 15:25 16 91 02/24/19 14:55 97.5 F L 85 16 106/57 91 02/24/19 13:05 79 18 104/63 Intake and Output 02/24/19 02/25/19 02/25/19 23:59 07:59 15:59 Intake Total 250 / 250 360 / 360 Balance 250 / 250 360 / 360 Intake: IV Fluids 250 / 250 Zithromax 500 mg In Dextrose 5% 250 / 250 250 ML @ 252 mls/hr IVPB Q24H [facility] Rx#:[id number] Oral 360 / 360 Other: Meal Breakfast Percent of Meal Consumed 100% Weight 70.9 kg Patient Weight 02/25/19 23:59 Weight 70.9 kg - Lab 02/25/19 05:33 02/25/19 05:33 Most recent lab results Calcium 8.8 mg/dL (8.6-10.3) 02/25/19 05:33 Magnesium 2.1 mg/dL (1.6-2.6) 02/24/19 01:53 Consult Discharge Plan - Plan Referrals: Veronica Horowitz CNP [Primary Care Provider] - 03/03/19 1:00 pm
[2019-02-25] MEDS: *HR* HYDROcodone/Acet 5/325 mg TABLET PO PRN (13:50)
[2019-02-25] MEDS: *HR* Heparin 5,000 UNIT/ML VIAL SQ SCH ×2 (13:50→21:17)
--- NOTE | 2019-02-25 14:15 | Nephrology Consult Note ---
Date of Encounter: 02/25/19 Time of Encounter: 14:15 Assessment and Plan (1) Acute kidney injury superimposed on chronic kidney disease Current Visit: Yes Status: Acute The patient has acute kidney injury on chronic kidney disease with multiple factors. We will perform a limited workup including a renal ultrasound to evaluate for obstruction. Patient would probably benefit from gentle hydration, however, with his respiratory issues this will need to be monitored closely. Avoid unnecessary nephrotoxins. May need to hold diuretics for now. Adjust medications for renal function. February the consult we will follow with you. (2) CKD (chronic kidney disease) stage 3, GFR 30-59 ml/min Current Visit: Yes Status: Acute (3) Horseshoe kidney Current Visit: Yes Status: Acute (4) Lung mass Current Visit: Yes Status: Acute Per oncology. Biopsies plan. (5) Ischemic cardiomyopathy Current Visit: Yes Status: Chronic Per cardiology. (6) Tobacco dependence Current Visit: Yes Status: Chronic (7) COPD exacerbation Current Visit: No Status: Acute Patient with wheezing. Continue with proper dilators. (8) HTN (hypertension) Current Visit: No Status: Chronic Titrate blood pressure medication as needed. Qualifiers: Hypertension type: essential hypertension Qualified Code(s): I10 - Essential (primary) hypertension History of Present Illness - Reason for Consult Consult date: 02/25/19 Acute Kidney Injury, Chronic Kidney Disease - Chief Complaint saul/ckd - History of Present Illness Mr. Ruggiero is a 73-year-old gentleman with a history of chronic kidney disease and multiple other comorbidities who developed worsening renal function. [facility] was consult to assist with acute kidney injury on chronic kidney disease. At time I evaluation patient denied active chest pain. He did have some dyspnea. No nausea. He did have decreased appetite. 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," horseshoe kidney, a ortic aneurysm in the L lower abdomen Psychiatric history: PTSD - Past Surgical History Surgical History: angioplasty/stent, appendectomy, coronary bypass (CABG) Additional surgical history: 7 stents, CABG (approximately 2006) - Social History Smoking Status: Current every day smoker Packs per day: 1/2 Smokeless Tobacco Status: No Alcohol use: none Drug use: none - Family History Mother Living Status: Cause of : Colon Cancer Hx Family Cardiac Disorders: Yes ("bad heart") Hx Family Cancer: Yes (Colon Cancer) Father Living Status: Cause of : [place] Hx Family Cardiac Disorders: Yes ([place]) Hx Family Cancer: Yes (Lung Cancer) Medications and Allergies Aspirin [Lo-Dose Aspirin EC] 81 mg PO DAILY 11/08/17 [History] Terazosin HCl 10 mg PO HS 11/08/17 [History] Zolpidem Tartrate 5 mg PO HS 11/08/17 [History] Furosemide [Lasix] 20 mg PO DAILY #5 tablet 11/09/17 [Rx] Albuterol Sulfate [Albuterol Inhaler] 2 puff IH Q4HR PRN 02/22/19 [History] Ipratropium/Albuterol Neb [Duoneb] 3 ml IH Q4HR PRN 02/22/19 [History] Metoprolol XL (24 HR) Succ [Toprol XL] 25 mg PO DAILY 02/22/19 [History] Tiotropium Baxter [Spiriva Respimat] 2 inh IH DAILY 02/22/19 [History] Terazosin [Hytrin] 10 mg PO HS 02/25/19 [History] Allergy/AdvReac Type Severity Reaction Status Date / Time nitroglycerin Allergy See Verified 02/22/19 17:47 Comments hydromorphone [From Dilaudid] AdvReac Hallucinati Verified 11/08/17 15:38 ng ketorolac [From Toradol] AdvReac Hallucinati Verified 11/08/17 15:38 ng Review of Systems All Systems: reviewed and no additional remarkable complaints except as stated (As documented in history of present illness otherwise negative or stable.) Exam - Vital Signs Vital signs: Initial Vital Signs Temp Pulse Resp BP Pulse Ox 97.8 F 85 22 142/92 100 02/22/19 17:43 02/22/19 17:43 02/22/19 17:43 02/22/19 17:43 02/22/19 17:43 Vital Signs - Last 8 Hours Temp Pulse Resp BP Pulse Ox 02/25/19 11:41 97.4 F L 82 17 125/77 96 02/25/19 11:06 18 96 02/25/19 07:31 16 94 02/25/19 07:30 98 F 84 17 125/87 94 Intake and Output 04/05/19 04/06/19 04/06/19 23:59 07:59 15:59 Intake Total 250 / 250 600 / 600 Balance 250 / 250 600 / 600 Intake: IV Fluids 250 / 250 Zithromax 500 mg In Dextrose 5% 250 / 250 250 ML @ 252 mls/hr IVPB Q24H [facility] Rx#:[id number] Oral 600 / 600 Other: Meal Lunch Percent of Meal Consumed 15% Weight 70.9 kg Patient Weight 02/25/19 23:59 Weight 70.9 kg - General Appearance General appearance: well-developed, well-nourished EENT: ATNC Neck: supple Respiratory: wheezing Cardiology: no edema, regular rate Gastrointestinal: no tenderness Integumentary: warm and dry Neurologic: alert and oriented x3 Musculoskeletal: no cyanosis Psychiatric: mood/affect appropriate Results - Lab Results 02/26/19 06:26 02/26/19 06:26 Most recent lab results Calcium 8.8 mg/dL (8.6-10.3) 02/25/19 05:33 Magnesium 2.1 mg/dL (1.6-2.6) 02/24/19 01:53 Consult Discharge Plan - Plan Referrals: Veronica Horowitz CNP [Primary Care Provider] - 03/03/19 1:00 pm
[2019-02-25 16:16] LABS: Bilirubin,Urine Negative (Negative); Blood,Urine Negative (Negative); Clarity,Urine Clear (Clear); Color,Urine Yellow (Yellow); Glucose,Urine (UA) Normal (Normal); Ketones,Urine Negative (Negative); Leukocyte Esterase,Urine Negative (Negative); Nitrite,Urine Negative (Negative); PH,Urine 5.5 pH Units (5.0-8.0); Protein,Urine 30 mg/dL (Neg-Trace); Specific Gravity,Urine 1.022 (1.010-1.025); Urobilinogen,Urine Normal (Normal)
[2019-02-25 16:18] LABS: Bacteria,Urine None Seen per hpf (None-Few); Hyaline Casts,Urine None Seen per lpf (None-Few); RBC,Urine 0-3 per hpf (0-3); Squamous Epithelial Cell,Urine Moderate per lpf (None-Few); WBC,Urine 0-3 per hpf (0-3)
[2019-02-25 16:26] LABS: Sodium, Urine 35.9 mEq/L
[2019-02-25] MEDS: Azithromycin 500 MG in D5% in Water 250 ML IVPB SCH (17:21)
[2019-02-26] MEDS: Ipratropium/Albuterol Neb 3 ML IH SCH ×7 (00:16→23:58)
[2019-02-26] MEDS: *HR* Morphine 2 MG/ML SYRINGE IVP PRN ×5 (03:14→17:14)
[2019-02-26] MEDS: *HR* HYDROcodone/Acet 5/325 mg TABLET PO PRN ×2 (05:58→21:41)
[2019-02-26] MEDS: *HR* Heparin 5,000 UNIT/ML VIAL SQ SCH ×3 (05:58→21:42)
--- NOTE | 2019-02-26 06:38 | Pulmonology Progress Note ---
Date of Encounter: 02/26/19 Time of Encounter: 06:38 Assessment and Plan (1) Lung mass Current Visit: Yes Status: Acute This is concerning for primary lung neoplasm Patient states that he did have a CT scan done at [facility] within the last 3 months I have requested that these records be obtained on an urgent basis (still pending) Keep nothing by mouth at midnight for planned bronchoscopy tomorrow A bronchoscopy is recommended. The procedure , risks, benefits, complications, and expected outcomes have been reviewed. Benefits of diagnosis, as well as risks to include bleeding, infection, pneumothorax which may require surgical intervention, and in a small population. The patient is aware that sometimes test is nondiagnostic. Discussed with patient and agrees to proceed. (2) Chest pain Current Visit: Yes Status: Acute Cardiology has signed off and his been seen by vascular surgeon. Some of this I suspect is related to her airways disease but even with treatment of this and this has persisted pain control per primary service and would also recommend considering gastrointestinal causes in the differential and consider anti-acid medication such as PPI or H2 eduar Qualifiers: Chest pain type: unspecified Qualified Code(s): R07.9 - Chest pain, unspecified (3) COPD exacerbation Current Visit: No Status: Acute Would continue IV steroids today d/c on 40mg Prednisone to complete 2-3 week taper Continue bronchodilators Start Symbicort 160/4.52 puffs twice a day Pulmonary f/u 1-2 weeks in clinic (4) Tobacco dependence Current Visit: Yes Status: Chronic Tobacco cessation counseling given Recommend DVT prophylaxis while inpatient Subjective Principal diagnosis: COPD exacerbation Interval history: Still complaining of chest pain. Otherwise says his breathing is getting a little better and he is anxious to get home Objective PUL Vital signs: Last Vital Signs Temp 97.6 F 02/26/19 02:53 Pulse 82 02/26/19 02:53 Resp 16 02/26/19 02:53 BP 144/91 02/26/19 02:53 Pulse Ox 92 02/26/19 02:53 General appearance: no acute distress Eyes: nonicteric Neck: supple, no lymphadenopathy Effort: normal Auscultation: bilateral: wheezes (b/l Exp wheezes in all lung wilson ) Cardiovascular: regular rate and rhythm Gastrointestinal: normoactive bowel sounds, soft, non-tender Integumentary: normal Extremities: no cyanosis, no edema, no clubbing Musculoskeletal: no deformities normal mental status, non-focal exam mood appropriate Results - Laboratory Findings CBC and BMP: 02/26/19 06:26 02/26/19 06:26 PT/INR, D-dimer PT 13.4 Seconds (9.4-12.1) H 02/23/19 04:20 Abnormal lab findings: Abnormal lab results Hgb 11.9 g/dL (12.9-16.9) L 02/25/19 05:33 Hct 37.0 % (37.5-50.1) L 02/25/19 05:33 MCV 81.9 fL (83.0-100.0) L 02/25/19 05:33 MCH 26.3 pg (28.0-33.3) L 02/25/19 05:33 RDW 17.3 % (11.5-14.5) H 02/25/19 05:33 Plt Count 131 K/mcL (140-400) L 02/25/19 05:33 Lymphocytes # 0.5 K/mcL (0.6-4.6) L 02/24/19 01:53 PT 13.4 Seconds (9.4-12.1) H 02/23/19 04:20 Sodium 135 mEq/L (136-145) L 02/25/19 05:33 Carbon Dioxide 22 mEq/L (23-29) L 02/25/19 05:33 BUN 48 mg/dL (8-23) H 02/25/19 05:33 Creatinine 2.34 mg/dL (0.70-1.30) H 02/25/19 05:33 Est GFR ( Amer) 33 (> 60) L 02/25/19 05:33 Est GFR (Non-Af Amer) 27 (> 60) L 02/25/19 05:33 Glucose 141 mg/dL (70-105) H 02/25/19 05:33 Iron 14 mcg/dL (65-175) L 02/25/19 05:33 % Saturation 3 % (20-55) L 02/25/19 05:33 Alkaline Phosphatase 190 Units/L (34-104) H 02/25/19 05:33 Troponin I 0.04 ng/mL (< 0.04) H* 02/23/19 04:20 B-Natriuretic Peptide 1762 pg/mL (Less than 100) H 02/22/19 18:47 Urine Protein 30 mg/dL (Neg-Trace) H 02/25/19 16:04 Ur Squamous Epith Cells Moderate per lpf (None-Few) H 02/25/19 16:04 - Clinical Findings Intake & Output: Intake & Output 02/25/19 02/25/19 02/26/19 15:59 23:59 07:59 Intake Total 600 / 600 720 / 720 Balance 600 / 600 720 / 720 Weight 72 kg Consult Discharge Plan - Plan Referrals: Veronica Horowitz, BUILDING CONSTRUCTION ESTIMATOR [Primary Care Provider] - 03/03/19 1:00 pm
[2019-02-26 07:22] LABS: Hematocrit 35.5 % (37.5-50.1); Hemoglobin 11.4 g/dL (12.9-16.9); Mean Corpuscular HGB Conc 32.1 g/dL (31.6-35.5); Mean Corpuscular Hemoglobin 26.5 pg (28.0-33.3); Mean Corpuscular Volume 82.6 fL (83.0-100.0); Mean Platelet Volume 11.8 fL (9.4-12.4); Platelet Count 117 K/mcL (140-400); Red Cell Distribution Width 17.2 % (11.5-14.5)
[2019-02-26 07:26] LABS: Basophils % 0.1 %; Hematocrit 35.7 % (37.5-50.1); Hemoglobin 11.3 g/dL (12.9-16.9); Immature Granulocytes % 0.9 % (0-4); Lymphocytes # 0.3 K/mcL (0.6-4.6); Lymphocytes % 4.2 %; Mean Corpuscular HGB Conc 31.7 g/dL (31.6-35.5); Mean Corpuscular Hemoglobin 26.1 pg (28.0-33.3); Mean Corpuscular Volume 82.4 fL (83.0-100.0); Mean Platelet Volume 10.9 fL (9.4-12.4); Monocytes # 0.3 K/mcL (0.0-1.3); Neutrophils # 7.1 K/mcL (1.6-8.9); Platelet Count 116 K/mcL (140-400); Red Blood Count 4.33 M/mcL (4.19-5.50); Red Cell Distribution Width 16.9 % (11.5-14.5); Segmented Neutrophils % 90.8 %
[2019-02-26 07:47] LABS: Albumin 3.5 g/dL (3.5-5.7); Albumin/Globulin Ratio 1.1 (1.1-2.2); Bilirubin,Total 0.6 mg/dL (0.3-1.0); Calcium 8.7 mg/dL (8.6-10.3); Globulin 3.1 g/dL (2.4-3.5); Potassium 4.6 mEq/L (3.5-5.1); Total Protein 6.6 g/dL (6.4-8.9)
--- NOTE | 2019-02-26 08:03 | Internal Med Progress Note ---
Hospitalist Progress Note - Encounter Date of Encounter: 02/26/19 Time of Encounter: 08:01 - Subjective Interval History: Patient was seen and examined. The patient is being evaluated by multiple specialties. feels well. He was evaluated for chest pain initially was put on a heparin drip for possible unstable angina due to elevated troponins which have trended down. Eventually the heparin drip was stopped. He was noted to have an EF of 20% which is known for him on echocardiogram. While he was also here, he had a study to rule out aortic dissection but found an abdominal aortic aneurysm which was evaluated by vascular and for now they plan on just monitoring that with imaging studies down the road. He is also on IV Solu-Medrol as well as Z ithromax for COPD exacerbation. He was also noted to have a long nodule/mass which pulmonology is following for an planning to do a bronchoscopy on Wednesday. The patient received IV fluids to prevent IV contrast nephropathy on initial presentation. He also has findings of CHF on his chest x-ray. Kidney function has worsened while he is here. - Exam Vitals: Temp Pulse Resp BP Pulse Ox 97.4 F L 79 15 125/85 98 02/26/19 07:09 02/26/19 07:09 02/26/19 07:09 02/26/19 07:09 02/26/19 07:09 Exam: GEN: NAD CVS: RRR. S1, S2, No m/r/g RESP: Diminished with bibasilar crackles ABD: Soft, NT, ND, +BS EXT: No edema. 2+ DP. No rashes NEURO: Nonfocal - Assessment and Plan (1) COPD exacerbation Current Visit: No Status: Acute Assessment and Plan: Pulmonology is following. Continue IV steroids and Zithromax. Nebs. O2 support as needed. Currently on room air. (2) CAD (coronary artery disease) Current Visit: No Status: Chronic Assessment and Plan: Troponin peaked at 0.04 and appears to be chronically elevated. Has known CAD and reported recent LHC 3 months ago Oscar without intervention. TTE showed EF 20% how her patient reported previous LVEF 12% Oscar. Evaluated by cardiology who suspected chest pain multifactorial with pleuritic in nature and demand ischemia. No cardiac rehabilitation consult warranted. Started on aspirin initially but I stopped it this morning as there is plans for possible bronchoscopy in a couple days. Was also started on Plavix and I stopped that as well. Continue home statin and BB. Continue telemetry. (3) CHF (congestive heart failure) Current Visit: No Status: Chronic Assessment and Plan: Acute on chronic systolic heart failure. TTE with EF 20%; previously 12%. Does appear mildly overloaded with SOB. CXR with cardiomegaly and mild CHF. BNP 1762. Not on diuretics at home. Was given a dose of Lasix 40 mg yesterday. We will hold off on any further diuresis as the patient is on room air and given worsening kidney function.. (4) Abdominal aortic aneurysm Current Visit: Yes Status: Chronic Assessment and Plan: Follow-up with vascular outpatient. Will need repeat imaging. (5) Lung mass Current Visit: Yes Status: Acute Assessment and Plan: Bronchoscopy tomorrow. Pulmonology is following. Oncology is on board as well. (6) CKD (chronic kidney disease) stage 3, GFR 30-59 ml/min Current Visit: Yes Status: Acute Assessment and Plan: hx congenital solitary kidney. Has some underlying CKD but kidney function seems to have worsened here. Nephrology have been consulted yesterday. I do not see recommendations yet as note is not finalized. Renal US pending. Creatinine is about the same as yesterday. Monitor urine output. 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 He also has a left superficial femoral artery occlusion on his abdominal pelvic CT scan. Evaluated by vascular surgery who noted no indication for intervention at this time and recommended ASA. Aspirin is on hold for now in anticipation of bronchoscopy with biopsy. Can be evaluated further on outpatient basis if needed. (9) DVT prophylaxis Current Visit: Yes Status: Acute Assessment and Plan: Heparin subcutaneous - Time Spent with Patient Total time spent is greater than 50% in coordination of care (as documented) at patient's floor/unit and/or counseling patient: Internal Medicine: Result - Labs CBC & Chem 7: 02/26/19 06:26 02/26/19 06:26 Labs: Short CBC 02/26/19 02/26/19 Range/Units 06:26 06:26 WBC 7.8 7.8 (4.3-11.1) K/mcL Hgb 11.4 L 11.3 L (12.9-16.9) g/dL Hct 35.5 L 35.7 L (37.5-50.1) % Plt Count 117 L 116 L (140-400) K/mcL Neutrophils # 7.1 (1.6-8.9) K/mcL BMP 02/26/19 06:26 Sodium 137 Potassium 4.6 Chloride 104 Carbon Dioxide 22 L BUN 49 H Creatinine 2.29 H Glucose 145 H Calcium 8.7 Liver Function 02/26/19 Range/Units 06:26 Total Bilirubin 0.6 (0.3-1.0) mg/dL AST 15 (13-39) Units/L ALT 18 (7-52) Units/L Alkaline Phosphatase 176 H (34-104) Units/L Albumin 3.5 (3.5-5.7) g/dL Urine 02/25/19 Range/Units 16:04 Urine Color Yellow (Yellow) Urine Clarity Clear (Clear) Urine pH 5.5 (5.0-8.0) pH Units Ur Specific Kite 1.022 (1.010-1.025) Urine Protein 30 H (Neg-Trace) mg/dL Urine Glucose (UA) Normal (Normal) mg/dL - ABG Interpretation ABG results: PT/INR, D-dimer PT 13.4 Seconds (9.4-12.1) H 02/23/19 04:20 - Impressions Impressions Retroperitoneum Ultrasound 02/25/19 14:26 IMPRESSION: Horseshoe kidney. Bilateral nephrolithiasis without evidence of hydronephrosis. Infrarenal abdominal aortic aneurysm measuring up to 5 cm in diameter on ultrasound. This is better evaluated on recent CTA of the abdomen from 02/23/2019. Please see that report for discussion of aneurysm follow-up recommendations. D/ / 02/25/2019 17:07:26 Willie Ron MD / lisy Interpreting Provider: Willie Ron MD Consult Discharge Plan - Plan Referrals: Veronica Horowitz, HEEL SORTER [Primary Care Provider] - 03/03/19 1:00 pm (2) CAD (coronary artery disease) Qualifiers: Qualified Code(s): I25.700 - Atherosclerosis of coronary artery bypass graft(s), unspecified, with unstable angina pectoris (3) CHF (congestive heart failure) Qualifiers: Qualified Code(s): I50.9 - Heart failure, unspecified (4) Abdominal aortic aneurysm Qualifiers: Qualified Code(s): I71.4 - Abdominal aortic aneurysm, without rupture
[2019-02-26] MEDS: Budesonide/Formoterol 160/4.5 1 PUFF INH IH SCH ×2 (08:19→20:20)
[2019-02-26] MEDS: MethylPREDNISolone 40 MG/ML VIAL IVP SCH ×2 (09:04→17:17)
[2019-02-26] MEDS: Metoprolol XL (24 HR) Succ 25 MG TAB.ER.24H PO SCH (09:05)
[2019-02-26] MEDS: Isosorbide MONOnitrate (24 HR) 30 MG TAB.ER.24H PO SCH (09:05)
--- NOTE | 2019-02-26 09:56 | Oncology Inp Progress Note ---
Date of Encounter: 02/26/19 Time of Encounter: 10:00 (1) Lung mass Current Visit: Yes Status: Acute Assessment and plan: Patient with history of COPD, ischemic cardiomyopathy with low ejection fraction, mediastinal adenopathy left hilar mass, pulmonary nodule suspicious for malignancy with metastatic disease, he is to undergo a bronch procedure next week. He is on heparin drip, due to cardio, vascular issues. HE is to f/u with Dr. De Los Santos, March 07 14:10, following biopsy and clearance from medical standpoint Plan d.w patient who i sagreeable for planned procedure next wk in-house. Oncology: Subj Interval history: Patient is without any complaints today. He has had chronic left upper back shoulder pain without any worsening. He reports that he is ready to go home. - Constitutional General appearance: no acute distress, thin - Head Head exam: Present: atraumatic, normal inspection - Eye Eye exam: Present: EOMI - ENT ENT exam: Present: mucous membranes moist - Respiratory Respiratory exam: Present: wheezes - Cardiovascular Cardiovascular exam: Present: +S1, +S2 - GI/Abdominal GI/Abdominal exam: Present: normal bowel sounds, soft - Extremities Exam Additional comments: no pedal edema - Neurological Exam Neurological exam: Present: alert, oriented X3, no focal deficits - Psychiatric Psychiatric exam: Present: normal mood Oncology: Obj Data - Labs CBC & Chem 7: 02/26/19 06:26 02/26/19 06:26 Consult Discharge Plan - Plan Referrals: Veronica Horowitz CNP [Primary Care Provider] - 03/03/19 1:00 pm Inpatient Charges Provider: Dr. Tigist Rodriguez Follow up - Inpatient: [id number]
--- NOTE | 2019-02-26 11:00 | Nephrology Progress Note ---
Date of Encounter: 02/26/19 Time of Encounter: 11:00 - Assessment and Plan (1) Acute kidney injury superimposed on chronic kidney disease Current Visit: Yes Status: Acute The patient has acute kidney injury on chronic kidney disease with multiple factors. Patient would probably benefit from gentle hydration, however, with his respiratory issues this will need to be monitored closely. Avoid unnecessary nephrotoxins. May need to hold diuretics for now. Adjust medications for renal function. (2) CKD (chronic kidney disease) stage 3, GFR 30-59 ml/min Current Visit: Yes Status: Acute (3) Horseshoe kidney Current Visit: Yes Status: Acute (4) Lung mass Current Visit: Yes Status: Acute (5) Ischemic cardiomyopathy Current Visit: Yes Status: Chronic (6) Tobacco dependence Current Visit: Yes Status: Chronic (7) COPD exacerbation Current Visit: No Status: Acute (8) HTN (hypertension) Current Visit: No Status: Chronic Qualifiers: Hypertension type: essential hypertension Qualified Code(s): I10 - [place] l (primary) hypertension Subjective Principal diagnosis: COPD exacerbation Interval history: Patient seen and evaluated. At the time my evaluation the patient was complaining of shortness of breath. I did call and the staff on the floor to get a respiratory therapist to provide bronchodilator therapy. Objective - Vital Signs Vital signs: Vital Signs Temp Pulse Resp BP Pulse Ox 02/26/19 08:19 16 98 02/26/19 07:09 97.4 F L 79 15 125/85 98 02/26/19 02:53 97.6 F 82 16 144/91 92 02/25/19 23:14 98.3 F 83 16 111/74 95 02/25/19 19:53 16 92 02/25/19 18:51 97.9 F 81 14 99/68 98 02/25/19 17:07 97.5 F L 75 17 124/80 97 02/25/19 15:23 18 93 02/25/19 11:41 97.4 F L 82 17 125/77 96 02/25/19 11:06 18 96 Intake and Output 02/25/19 02/26/19 02/26/19 23:59 07:59 15:59 Intake Total 720 / 720 240 / 240 Balance 720 / 720 240 / 240 Intake: Oral 720 / 720 240 / 240 Other: Meal Dinner Breakfast Percent of Meal Consumed 25% 10% Weight 72 kg Patient Weight 02/26/19 23:59 Weight 72 kg - General Appearance General appearance: Present: well-developed, well-nourished Exam: Mild respiratory distress EENT: Present: ATNC Neck: Present: supple Respiratory: Present: wheezing Cardiology: Present: regular rate Integumentary: Present: warm and dry Neurologic: Present: alert and oriented x3 Musculoskeletal: Present: no cyanosis Psychiatric: Present: mood/affect appropriate - Lab 02/26/19 06:26 02/26/19 06:26 Most recent lab results Calcium 8.7 mg/dL (8.6-10.3) 02/26/19 06:26 Magnesium 2.4 mg/dL (1.6-2.6) 02/26/19 06:26 Urine Creatinine 123 mg/dL 02/25/19 16:04 Urine Sodium 35.9 mEq/L 02/25/19 16:04 Consult Discharge Plan - Plan Referrals: Veronica Horowitz CNP [Primary Care Provider] - 03/03/19 1:00 pm
[2019-02-26] MEDS: Azithromycin 500 MG in D5% in Water 250 ML IVPB SCH (17:23)
[2019-02-26] MEDS: Azithromycin 250 MG TABLET PO SCH (22:15)
[2019-02-27] MEDS: MethylPREDNISolone 40 MG/ML VIAL IVP SCH ×3 (00:06→19:01)
[2019-02-27] MEDS: traMADol 50 MG TABLET PO PRN (00:26)
[2019-02-27 03:54] LABS: Hemoglobin 11.5 g/dL (12.9-16.9); Immature Granulocytes % 0.7 % (0-4); Lymphocytes # 0.4 K/mcL (0.6-4.6); Lymphocytes % 4.2 %; Mean Corpuscular HGB Conc 31.9 g/dL (31.6-35.5); Mean Corpuscular Hemoglobin 26.4 pg (28.0-33.3); Mean Corpuscular Volume 82.6 fL (83.0-100.0); Mean Platelet Volume 10.9 fL (9.4-12.4); Monocytes # 0.6 K/mcL (0.0-1.3); Monocytes % 7.2 %; Neutrophils # 7.7 K/mcL (1.6-8.9); Platelet Count 123 K/mcL (140-400); Red Blood Count 4.36 M/mcL (4.19-5.50); Red Cell Distribution Width 16.9 % (11.5-14.5); Segmented Neutrophils % 87.9 %
[2019-02-27 04:16] LABS: Albumin 3.6 g/dL (3.5-5.7); Albumin/Globulin Ratio 1.2 (1.1-2.2); Bilirubin,Total 0.5 mg/dL (0.3-1.0); Calcium 8.8 mg/dL (8.6-10.3); Globulin 2.9 g/dL (2.4-3.5); Total Protein 6.5 g/dL (6.4-8.9)
[2019-02-27] MEDS: Ipratropium/Albuterol Neb 3 ML IH SCH ×6 (04:41→23:35)
[2019-02-27] MEDS: *HR* Heparin 5,000 UNIT/ML VIAL SQ SCH ×3 (05:21→19:59)
[2019-02-27] MEDS: Budesonide/Formoterol 160/4.5 1 PUFF INH IH SCH ×2 (07:26→20:08)
--- NOTE | 2019-02-27 07:51 | Event Note ---
Date of Encounter: 02/27/19 Time of Encounter: 07:48 Patient was seen and examined. I agree with the progress note as written by the resident physician. No acute event. feels well. afebrile. The patient is being evaluated by multiple specialties. feels well. He was evaluated for chest pain initially was put on a heparin drip for possible unstable angina due to elevated troponins which have trended down. Eventually the heparin drip was stopped. He was noted to have an EF of 20% which is known for him on echocardiogram. While he was also here, he had a study to rule out aortic dissection but found an abdominal aortic aneurysm which was evaluated by vascular and for now they plan on just monitoring that with imaging studies down the road. He is also on IV Solu- Medrol as well as Zithromax for COPD exacerbation. He was also noted to have a long nodule/mass which pulmonology is following for an planning to do a broncho scopy on Wednesday. The patient received IV fluids to prevent IV contrast nephropathy on initial presentation. He also has findings of CHF on his chest x-ray. Kidney function has worsened while he is here. GEN: NAD CVS: RRR. S1, S2, No m/r/g RESP: Diminished with bibasilar crackles ABD: Soft, NT, ND, +BS EXT: No edema. 2+ DP. No rashes NEURO: Nonfocal Bronch today c/w IV steroids and nebs O2 support and wean as tolerated Nephrology is following for kidney function. Seems to be improving Avoid nephrotoxins Renal US results noted Oncology is following as well. Awaiting biopsy f/u with vascular regarding AAA outpatient
--- NOTE | 2019-02-27 08:05 | Internal Med Progress Note ---
Hospitalist Progress Note - Encounter Date of Encounter: 02/27/19 Time of Encounter: 08:05 - Subjective Interval History: Patient was seen and evaluated at the bedside. He endorses left sided lower rib pain as 10 out of 10 in severity, which is exasperated by deep inspiration. He reports continued shortness of breath, but denies any cough or increased sputum production. He denies any chest pain or other concerns at this time. Nursing staff reports no acute overnight events. Patient is currently nothing by mouth awaiting bronchoscopy for evaluation of lung mass. - Exam Vitals: Temp Pulse Resp BP Pulse Ox 98.0 F 109 18 132/84 98 02/27/19 06:50 02/27/19 06:50 02/27/19 07:28 02/27/19 06:50 02/27/19 07:28 Exam: GENERAL: Pleasant adult male resting in bed in no acute distress. HEENT: Atraumatic and normocephalic. CARDIOVASCULAR: Regular rate and rhythm. S1 and S2 present. No murmurs, gallops, or rubs. RESPIRATORY: Decreased breath sounds bilaterally with wheezes present. GASTROINTESTINAL: Abdomen is soft, nontender, nondistended. EXTREMITIES: No clubbing, cyanosis, or edema. SKIN: Warm, dry, and intact. NEUROLOGIC: Alert and oriented x3. Patient is cooperative with exam and answers questions appropriately. No apparent focal deficits. PSYCHIATRIC: Appropriate mood and affect. - Assessment and Plan (1) COPD exacerbation Current Visit: Yes Status: Acute Assessment and Plan: History of COPD. At the time of presentation to the ED, patient was noted to be wheezing, which improved after administration of breathing treatments. - Continue duonebs Q4H scheduled. Continue IV steroids; dose decreased in order to transition to PO steroids prior to discharge. - Continue azithromycin; currently has received 3 doses, with dose #4 scheduled for this evening. Anticipate total antibiotic course of 5 days. - Appreciate pulmonology recommendations regarding this patient. (2) Lung mass Current Visit: Yes Status: Acute Assessment and Plan: CTA performed on 02/23/2019 demonstrated a 2.8 cm mass adjacent to the left hilum, concerning for primary lung neoplasm or metastatic disease. Imaging office demonstrated multiple bilateral pulmonary nodules suspicious for metastatic disease, as well as mediastinal and hilar lymphadenopathy. Patient underwent bronchoscopy this afternoon, with endobronchial ultrasound and bronchoalveolar lavage. - BAL, biopsy, culture, and cytology results pending. - Management per pulmonology recommendations. (3) Acute kidney injury superimposed on chronic kidney disease Current Visit: Yes Status: Acute Assessment and Plan: Improving. Initial creatinine noted to be elevated at 1.49, with further worsening throughout this admission. Over the last few days, creatinine has trended down from 2.34 on 02/25/2019 to 2.17 today. - Continue to hold lasix diuresis. Additional IV fluids have not been administer ed due to concerns for exacerbating respiratory status. - Appreciate nephrology recommendations. (4) CHF (congestive heart failure) Current Visit: Yes Status: Chronic Assessment and Plan: Patient presented to the ED with complaints of chest pain. BNP was noted to be elevated at 1762 at the time of admission. Echocardiogram performed on 02/23/2019 demonstrated LVEF 20%; patient reports prior LVEF of 12%. CXR was significant for cardiomegaly and findings suggestive of mild CHF. Patient did receive a dose of lasix earlier during this admission; however, further diuresis has been held secondary to worsening renal function. - Continue to monitor for signs of worsening fluid overload. - Anticipate further diuresis once SULLY has resolved. (5) CAD (coronary artery disease) Current Visit: Yes Status: Chronic Assessment and Plan: History of CAD with reported LHC approximately 3 months ago at an outside facility, during which there was no intervention. Elevated troponin present on admission, with peak of 0.04. Troponin appears chronically elevated. Cardiology did evaluate this patient, and stated that no cardiac rehabilitation is indicated at this time. - Continue home medications of metoprolol 25mg and atorvastatin 40mg. - Continue telemetry monitoring. (6) Atherosclerosis of [place] arteries of extremities with intermittent claudication, bilateral legs Current Visit: Yes Status: Chronic Assessment and Plan: CT imaging demonstrated chronic bilateral internal iliac artery occlusions, as well as a left superficial femoral artery occlusion. Per vascular surgery, no indication for intervention at this time, with recommendation for aspirin therapy. Aspirin held due to bronchoscopy this afternoon. - Resume aspirin when appropriate after bronchoscopy. - Recommend outpatient followup with vascular surgery for further management. (7) Abdominal aortic aneurysm Current Visit: Yes Status: Chronic Assessment and Plan: CT demonstrated presence of a 5.7 cm AAA. - Recommend outpatient followup with vascular surgery. (8) DVT prophylaxis Current Visit: Yes Status: Acute Assessment and Plan: - Continue heparin SQ. - Time Spent with Patient Total time spent is greater than 50% in coordination of care (as documented) at patient's floor/unit and/or counseling patient: Internal Medicine: Result - Labs CBC & Chem 7: 02/27/19 03:34 02/27/19 03:34 Labs: Short CBC 02/27/19 Range/Units 03:34 WBC 8.7 (4.3-11.1) K/mcL Hgb 11.5 L (12.9-16.9) g/dL Hct 36.0 L (37.5-50.1) % Plt Count 123 L (140-400) K/mcL Neutrophils # 7.7 (1.6-8.9) K/mcL BMP 02/27/19 03:34 Sodium 139 Potassium 5.0 Chloride 106 Carbon Dioxide 23 BUN 54 H Creatinine 2.17 H Glucose 147 H Calcium 8.8 Liver Function 02/27/19 Range/Units 03:34 Total Bilirubin 0.5 (0.3-1.0) mg/dL AST 15 (13-39) Units/L ALT 20 (7-52) Units/L Alkaline Phosphatase 161 H (34-104) Units/L Albumin 3.6 (3.5-5.7) g/dL - ABG Interpretation ABG results: PT/INR, D-dimer PT 13.4 Seconds (9.4-12.1) H 02/23/19 04:20 Consult Discharge Plan - Plan Referrals: Veronica Horowitz NOISE TESTER [Primary Care Provider] - 03/03/19 1:00 pm (4) CHF (congestive heart failure) Qualifiers: Heart failure type: unspecified Heart failure chronicity: unspecified Qualified Code(s): I50.9 - Heart failure, unspecified (5) CAD (coronary artery disease) Qualifiers: Coronary Disease-Associated Artery/Lesion type: bypass graft [place] vs. transplanted heart: [place] heart Associated angina: with unstable angina Qualified Code(s): I25.700 - Atherosclerosis of coronary artery bypass graft(s), unspecified, with unstable angina pectoris (7) Abdominal aortic aneurysm Qualifiers: Presence of rupture: without rupture Qualified Code(s): I71.4 - Abdominal aortic aneurysm, without rupture
[2019-02-27] MEDS ORDERED: Metoprolol XL (24 HR) Succ 25 MG TAB.ER.24H PO SCH (09:00)
[2019-02-27] MEDS: Metoprolol XL (24 HR) Succ 25 MG TAB.ER.24H PO SCH (09:01)
[2019-02-27] MEDS: Isosorbide MONOnitrate (24 HR) 30 MG TAB.ER.24H PO SCH (09:01)
[2019-02-27] MEDS: *HR* HYDROcodone/Acet 5/325 mg TABLET PO PRN (09:01)
--- NOTE | 2019-02-27 09:40 | Pulmonology Progress Note ---
Date of Encounter: 02/27/19 Time of Encounter: 07:45 Assessment and Plan (1) Lung mass Current Visit: Yes Status: Acute I have seen and examined the patient in the presence of the nurse and we discussed about the bronchoscopy associated with that and he understand and agree to have it done. Awaiting for bronchoscopy team to be ready. (2) COPD (chronic obstructive pulmonary disease) Current Visit: No Status: Chronic Continue current treatment. Qualifiers: COPD type: COPD with acute exacerbation Qualified Code(s): J44.1 - Chronic obstructive pulmonary disease with (acute) exacerbation Subjective Principal diagnosis: COPD exacerbation Interval history: Patient denies any worsening of his symptoms and he is waiting for bronchoscopy Objective PUL Vital signs: Last Vital Signs Temp 98.0 F 02/27/19 06:50 Pulse 109 02/27/19 06:50 Resp 18 02/27/19 07:28 BP 132/84 02/27/19 06:50 Pulse Ox 98 02/27/19 07:28 General appearance: no acute distress ENT: oropharynx dry Neck: supple Effort: normal Auscultation: bilateral: diminished breath sounds Percussion: bilateral: not dull Cardiovascular: regular rate and rhythm Gastrointestinal: normoactive bowel sounds, non-distended normal mental status mood appropriate Results - Laboratory Findings CBC and BMP: 02/27/19 03:34 02/27/19 03:34 PT/INR, D-dimer PT 13.4 Seconds (9.4-12.1) H 02/23/19 04:20 Abnormal lab findings: Abnormal lab results Hgb 11.5 g/dL (12.9-16.9) L 02/27/19 03:34 Hct 36.0 % (37.5-50.1) L 02/27/19 03:34 MCV 82.6 fL (83.0-100.0) L 02/27/19 03:34 MCH 26.4 pg (28.0-33.3) L 02/27/19 03:34 RDW 16.9 % (11.5-14.5) H 02/27/19 03:34 Plt Count 123 K/mcL (140-400) L 02/27/19 03:34 Lymphocytes # 0.4 K/mcL (0.6-4.6) L 02/27/19 03:34 PT 13.4 Seconds (9.4-12.1) H 02/23/19 04:20 BUN 54 mg/dL (8-23) H 02/27/19 03:34 Creatinine 2.17 mg/dL (0.70-1.30) H 02/27/19 03:34 Est GFR ( Amer) 36 (> 60) L 02/27/19 03:34 Est GFR (Non-Af Amer) 30 (> 60) L 02/27/19 03:34 Glucose 147 mg/dL (70-105) H 02/27/19 03:34 Calculated Osmolality 305 (280-300) H 02/27/19 03:34 Iron 14 mcg/dL (65-175) L 02/25/19 05:33 % Saturation 3 % (20-55) L 02/25/19 05:33 Alkaline Phosphatase 161 Units/L (34-104) H 02/27/19 03:34 Troponin I 0.04 ng/mL (< 0.04) H* 02/23/19 04:20 B-Natriuretic Peptide 1762 pg/mL (Less than 100) H 02/22/19 18:47 Urine Protein 30 mg/dL (Neg-Trace) H 02/25/19 16:04 Ur Squamous Epith Cells Moderate per lpf (None-Few) H 02/25/19 16:04 - Clinical Findings Intake & Output: Intake & Output 02/26/19 02/27/19 02/27/19 23:59 07:59 15:59 Intake Total 0 / 0 Output Total 110 / 110 Balance 0 / 0 -110 / -110 Weight 71.6 kg Consult Discharge Plan - Plan Referrals: Veronica Horowitz [employer] RO[employer] [Primary Care Provider] - 03/03/19 1:00 pm
--- NOTE | 2019-02-27 11:53 | Nephrology Progress Note ---
Date of Encounter: 02/27/19 Time of Encounter: 11:53 - Assessment and Plan (1) Acute kidney injury superimposed on chronic kidney disease Current Visit: Yes Status: Acute The patient has acute kidney injury on chronic kidney disease with multiple factors. Patient would probably benefit from gentle hydration, however, with his respiratory issues this will need to be monitored closely. Avoid unnecessary nephrotoxins. May need to hold diuretics for now. Adjust medications for renal function. Would like accurate Is and Os. (2) CKD (chronic kidney disease) stage 3, GFR 30-59 ml/min Current Visit: Yes Status: Acute (3) Horseshoe kidney Current Visit: Yes Status: Acute (4) Lung mass Current Visit: Yes Status: Acute Per oncology. Biopsy planned for today. (5) Ischemic cardiomyopathy Current Visit: Yes Status: Chronic (6) Tobacco dependence Current Visit: Yes Status: Chronic (7) COPD exacerbation Current Visit: Yes Status: Acute (8) HTN (hypertension) Current Visit: No Status: Chronic Qualifiers: Hypertension type: essential hypertension Qualified Code(s): I10 - Essential (primary) hypertension Subjective Principal diagnosis: COPD exacerbation Interval history: Patient seen and evaluated. He states his breathing is improving. Objective - Vital Signs Vital signs: Vital Signs Temp Pulse Resp BP Pulse Ox 02/27/19 11:04 98.3 F 77 20 114/64 98 02/27/19 07:28 18 98 02/27/19 06:50 98.0 F 109 20 132/84 97 02/27/19 03:10 98 F 85 16 121/76 98 02/26/19 23:58 16 95 02/26/19 23:16 98.1 F 82 16 116/69 97 02/26/19 20:20 18 89 02/26/19 18:43 97.4 F L 83 16 144/78 94 02/26/19 16:28 16 95 02/26/19 14:32 98.1 F 80 16 114/73 95 02/26/19 12:29 16 98 Intake and Output 02/26/19 02/27/19 02/27/19 23:59 07:59 15:59 Intake Total 0 / 0 0 / 0 Output Total 110 / 110 150 / 150 Balance 0 / 0 -110 / -110 -150 / -150 Intake: IV Fluids 0 / 0 Zithromax 500 mg In Dextrose 5% 0 / 0 250 ML @ 252 mls/hr IVPB Q24H SUSAN Rx#:[id number] Oral 0 / 0 Output: Urine 110 / 110 150 / 150 Other: Meal NPO Percent of Meal Consumed 0% # Voids 1 Weight 71.6 kg Patient Weight 02/27/19 23:59 Weight 71.6 kg - General Appearance General appearance: Present: well-developed, well-nourished EENT: Present: ATNC Neck: Present: supple Integumentary: Present: warm and dry Neurologic: Present: alert and oriented x3 Psychiatric: Present: mood/affect appropriate - Lab 02/27/19 03:34 02/27/19 03:34 Most recent lab results Calcium 8.8 mg/dL (8.6-10.3) 02/27/19 03:34 Magnesium 2.5 mg/dL (1.6-2.6) 02/27/19 03:34 Urine Creatinine 123 mg/dL 02/25/19 16:04 Urine Sodium 35.9 mEq/L 02/25/19 16:04 Consult Discharge Plan - Plan Referrals: Veronica Horowitz RETAIL TEAM MEMBER [Primary Care Provider] - 03/03/19 1:00 pm
[2019-02-27] MEDS ORDERED: Heparin 1,000 UNITS/500 mL 500 ML ONE (14:57)
--- NOTE | 2019-02-27 14:57 | Anesthesia Evaluation PreOp ---
Date of Encounter: 02/27/19 Time of Encounter: 14:55 - Past History Planned Operation: EBUS with Bronchoscopy Cardiac History: VT, CHF, HTN, Cardiac Surgery (CABG 2006), Cardiac Stent (x7), Pacemaker/ICD (AICD placed (7-8 years ago), interogated today), Other (5.7 cm AAA, Ischemic Cardiomyopathy, Reports recent LHC 3 months ago at [facility] without intervention, Chronic troponin Elevation. 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 Proximal left superficial femoral artery is completely occluded.Bilateral internal iliac arteries are completely occluded. Cardiomegaly) Pulmonary History: Smoker, Pack/yr (1/2 ppd since 7 y/o), COPD, Other (2.8 cm hilar mass, Multiple bilateral pulmonary nodules are seen which are suspicious for metastatic disease. Bilateral pleural effusions) FARM ADVISOR History: Other (PTSD) Other Medical History: Renal (stones, SULLY), Other (Thrombocytopenia, Black lung, exposure to agent orange) Anesthesia History: No Prior Anesthetic Complications, Past Anesthesia (appy, cardiac stents) Alcohol Use: none Drug use: none Medications and Allergies Aspirin [Lo-Dose Aspirin EC] 81 mg PO DAILY 11/08/17 [History] Terazosin HCl 10 mg PO HS 11/08/17 [History] Zolpidem Tartrate 5 mg PO HS 11/08/17 [History] Furosemide [Lasix] 20 mg PO DAILY #5 tablet 11/09/17 [Rx] Albuterol Sulfate [Albuterol Inhaler] 2 puff IH Q4HR PRN 02/22/19 [History] Ipratropium/Albuterol Neb [Duoneb] 3 ml IH Q4HR PRN 02/22/19 [History] Metoprolol XL (24 HR) Succ [Toprol XL] 25 mg PO DAILY 02/22/19 [History] Tiotropium [place] [Spiriva Respimat] 2 inh IH DAILY 02/22/19 [History] Terazosin [Hytrin] 10 mg PO HS 02/25/19 [History] Allergy/AdvReac Type Severity Reaction Status Date / Time nitroglycerin Allergy See Verified 02/22/19 17:47 Comments hydromorphone [From Dilaudid] AdvReac Hallucinati Verified 11/08/17 15:38 ng ketorolac [From Toradol] AdvReac Hallucinati Verified 11/08/17 15:38 ng - Meds/Allergy Pre-op Review Medications Reviewed: Yes Allergies Reviewed: Yes Beta Blockers on Current Med List: Yes If Beta Blockers taken, Date/Time (Last Dose taken): 09:01 today Anesthesia Results - Labs 02/27/19 03:34 02/27/19 03:34 - Imaging EKG: report reviewed (SINUS RHYTHM WITH FIRST DEGREE AV BLOCK RIGHT AXIS DEVIATION NONSPECIFIC IVCD INFERIOR MYOCARDIAL INFARCTION, OF INDETERMINATE AGE) Additional studies: Echocardiogram Name: Ezra Ruggiero Date of Study: 02/23/2019 EV/EV echocardiogram Impressions: LVEF 20%. Severely dilated left ventricle. Severe global left ventricular systolic dysfunction. Mild left ventricular diastolic dysfunction. Atypical septal motion consistent with post-operative status. Normal right ventricular size with hypokinesis. Mild aortic regurgitation. Mild aortic stenosis by Doppler. Severity possibly underestimated due to LV dysfunction. Mild-moderate mitral regurgitation. Estimated RVSP is 46 mmHg. Mild-moderate pulmonary hypertension. A device lead was visualized in the right atrium and right ventricle. Anesthesia Exam Vital Signs/O2 Sat, Most Current Temp Pulse Resp BP Pulse Ox 98.3 F 77 20 114/64 98 02/27/19 11:04 02/27/19 11:04 02/27/19 11:54 02/27/19 11:54 02/27/19 11:54 NPO (# of Hours): > 8 hrs Pain Scale: 0 Pain Scale Used: Numeric (1 - 10) - HEENT Pupil (Motor): Pupils equal, EOMI Mallampati: II Teeth: Edentulous Oral Opening: Greater than 3 - FARM ADVISOR LOC: Oriented FARM ADVISOR Motor: Normal RUE, Normal LUE, Normal RLE, Normal LLE, Normal Face FARM ADVISOR Sensory: Normal: RUE, LUE, RLE, LLE, Face - Cardiac Rhythm: Regular Murmur: None JVD: No Carotid Bruit: No - Pulmonary Breath Sounds: bilateral Clear Respiratory Effort: Symmetrical Anesthesia Assess/Plan ASA Score: 4 Anesthetic Plan: General Autologous Blood: Yes Monitoring Plan: Standard Monitors Recovery Plan: PACU
[2019-02-27] MEDS ORDERED: Lidocaine -MPF 2% 2 ML VIAL ONE ×2 (14:58→15:12)
[2019-02-27] MEDS ORDERED: *HR* FentaNYL (PF) 100 MCG/2 ML VIAL ONE (14:58)
[2019-02-27] MEDS ORDERED: *HR* Succinylcholine 200 MG/10 ML VIAL IVP ONE (14:58)
[2019-02-27] MEDS ORDERED: *HR* Phenylephrine 10 MG/ML VIAL ONE (14:59)
[2019-02-27] MEDS ORDERED: *HR* Etomidate 40 MG/20 ML VIAL IVP ONE (15:07)
[2019-02-27] MEDS ORDERED: EPHEDrine 50 MG/ML VIAL ONE (15:07)
[2019-02-27] MEDS ORDERED: *HR* Norepinephrine 4 MG/4 ML VIAL IVC ONE (15:26)
[2019-02-27] MEDS ORDERED: Ipratropium/Albuterol Neb 3 ML ONE ×2 (15:44→17:06)
[2019-02-27] MEDS ORDERED: Ondansetron 4 MG/2 ML VIAL ONE (16:00)
[2019-02-27] MEDS ORDERED: Dexamethasone 4 MG/ML VIAL ONE (16:00)
--- NOTE | 2019-02-27 16:10 | Anesthesia Procedures ---
Date of Encounter: 02/27/19 Time of Encounter: 15:39 Procedures: Anesthesia - Arterial Line Consent obtained: written consent Time out performed: Yes Sedation: Fentanyl (mcg): 25 Supplemental Oxygen via Nasal Cannula (L/min): 3 Local Anesthetic: Lidocaine 1% Amount of Anesthetic used (mls): 1 Size (Gauge): 22 Length (inches): 1 3/4 Technique Used: sterile prep, guide wire technique Post-Procedure: line taped into place, dry sterile dressing placed Patient tolerated procedure: well, no complications Complications: none Site: Radial R Vitals: see or anesthesia record, plan to remove post case if stable, done per Kip Calderón PERFORMANCE INSTRUCTOR x1 attempt. aseptic though out,
[2019-02-27] MEDS ORDERED: Azithromycin 250 MG TABLET PO SCH (17:00)
[2019-02-27] MEDS ORDERED: Haloperidol Lactate 5 MG/ML VIAL ONE ×2 (17:11→17:26)
[2019-02-27] MEDS: Haloperidol Lactate 5 MG/ML VIAL IVP ONE ×2 (17:15→17:28)
[2019-02-27] MEDS ORDERED: Haloperidol Lactate 5 MG/ML VIAL IVP ONE (17:30)
--- NOTE | 2019-02-27 18:13 | Anesthesia Evaluation Post Op ---
Date of Encounter: 02/27/19 Time of Encounter: 17:35 - Mental Status Mental Status: Confused, Uncooperative (Agitated, delerious) - Discharge PostOp Status: Transfer Patient to floor (Patient's vital signs have been reviewed. Patient is stable postoperatively and has adequately recovered from anesthesia. Patient is determined to have stable airway patency and respiratory function including respiratory rate and oxygen saturation. Patient has a stable heart rate, blood pressure and adequate hydration. Patients temperature is appropriate. Pain and nausea are adequately controlled.)
[2019-02-27] MEDS: Azithromycin 250 MG TABLET PO SCH (19:59)
[2019-02-28] MEDS: MethylPREDNISolone 40 MG/ML VIAL IVP SCH ×2 (00:19→10:19)
[2019-02-28] MEDS: Ipratropium/Albuterol Neb 3 ML IH SCH ×4 (04:09→15:34)
[2019-02-28 05:16] LABS: Appearance of Body Fluid Cloudy (Clear)
[2019-02-28 05:18] LABS: Volume of Body Fluid 10 mL
[2019-02-28 05:24] LABS: Appearance of Body Fluid Cloudy (Clear); Volume of Body Fluid 10 mL
[2019-02-28] MEDS: *HR* HYDROcodone/Acet 5/325 mg TABLET PO PRN ×2 (06:15→12:01)
[2019-02-28] MEDS: *HR* Heparin 5,000 UNIT/ML VIAL SQ SCH ×2 (06:15→13:47)
[2019-02-28 06:24] LABS: Basophils % 0.1 %; Hematocrit 38.4 % (37.5-50.1); Hemoglobin 11.7 g/dL (12.9-16.9); Immature Granulocytes % 0.7 % (0-4); Lymphocytes # 0.5 K/mcL (0.6-4.6); Lymphocytes % 4.9 %; Mean Corpuscular HGB Conc 30.5 g/dL (31.6-35.5); Mean Corpuscular Hemoglobin 25.9 pg (28.0-33.3); Mean Corpuscular Volume 85.1 fL (83.0-100.0); Mean Platelet Volume 10.3 fL (9.4-12.4); Monocytes # 0.8 K/mcL (0.0-1.3); Monocytes % 7.7 %; Neutrophils # 8.9 K/mcL (1.6-8.9); Platelet Count 113 K/mcL (140-400); Red Blood Count 4.51 M/mcL (4.19-5.50); Red Cell Distribution Width 17.1 % (11.5-14.5); Segmented Neutrophils % 86.6 %
[2019-02-28 06:52] LABS: Albumin 3.5 g/dL (3.5-5.7); Albumin/Globulin Ratio 1.3 (1.1-2.2); Bilirubin,Total 0.7 mg/dL (0.3-1.0); Calcium 8.7 mg/dL (8.6-10.3); Globulin 2.8 g/dL (2.4-3.5); Potassium 4.6 mEq/L (3.5-5.1); Total Protein 6.3 g/dL (6.4-8.9)
--- NOTE | 2019-02-28 08:38 | Event Note ---
Date of Encounter: 02/28/19 Time of Encounter: 08:37 Patient was seen and examined. I agree with the progress note as written by the resident physician. No acute event. feels well. afebrile. s/p bronch with lung biopsy and BAL. The patient is being evaluated by multiple specialties. He was evaluated for chest pain initially was put on a heparin drip for possible unstable angina due to elevated troponins which have trended down. Eventually the heparin drip was stopped. He was noted to have an EF of 20% which is known for him on echocardiogram. While he was also here, he had a study to rule out aortic dissection but found an abdominal aortic aneurysm which was evaluated by vascular and for now they plan on just monitoring that with imaging studies down the road. He is also on IV Solu-Medrol as well as Zithromax for COPD exacerbation. He was also noted to have a long nodule/mass which pulmonology is following. The patient received IV fluids to prevent IV contrast nephropathy on initial presentation. He also has findings of CHF on his chest x-ray. Kidney function has worsened while he is here. GEN: NAD CVS: RRR. S1, S2, No m/r/g RESP: Diminished with bibasilar crackles ABD: Soft, NT, ND, +BS EXT: No edema. 2+ DP. No rashes NEURO: Nonfocal Bronch done. f/u on path c/w IV steroids and nebs. Can start weaning down. O2 support and wean as tolerated Nephrology is following for kidney function. Seems to be improving Avoid nephrotoxins Renal US results noted Oncology is following as well. Awaiting biopsy f/u with vascular regarding AAA outpatient Dc only if cleared by all specialities.
--- NOTE | 2019-02-28 08:44 | Internal Med Progress Note ---
Hospitalist Progress Note - Encounter Date of Encounter: 02/28/19 Time of Encounter: 08:44 - Exam Vitals: Temp Pulse Resp BP Pulse Ox 97.7 F 75 15 119/71 99 02/28/19 07:20 02/28/19 07:20 02/28/19 07:20 02/28/19 07:20 02/28/19 07:20 - Assessment and Plan (1) COPD exacerbation Current Visit: Yes Status: Acute (2) Lung mass Current Visit: Yes Status: Acute (3) Acute kidney injury superimposed on chronic kidney disease Current Visit: Yes Status: Acute (4) CHF (congestive heart failure) Current Visit: Yes Status: Chronic (5) CAD (coronary artery disease) Current Visit: Yes Status: Chronic (6) Atherosclerosis of [place] arteries of extremities with intermittent claudication, bilateral legs Current Visit: Yes Status: Chronic (7) Abdominal aortic aneurysm Current Visit: Yes Status: Chronic (8) DVT prophylaxis Current Visit: Yes Status: Acute - Time Spent with Patient Total time spent is greater than 50% in coordination of care (as documented) at patient's floor/unit and/or counseling patient: Internal Medicine: Result - Labs CBC & Chem 7: 02/28/19 06:15 02/28/19 06:15 Labs: Short CBC 02/28/19 Range/Units 06:15 WBC 10.3 (4.3-11.1) K/mcL Hgb 11.7 L (12.9-16.9) g/dL Hct 38.4 (37.5-50.1) % Plt Count 113 L (140-400) K/mcL Neutrophils # 8.9 (1.6-8.9) K/mcL BMP 02/28/19 06:15 Sodium 138 Potassium 4.6 Chloride 107 Carbon Dioxide 25 BUN 51 H Creatinine 2.08 H Glucose 137 H Calcium 8.7 Liver Function 02/28/19 Range/Units 06:15 Total Bilirubin 0.7 (0.3-1.0) mg/dL AST 19 (13-39) Units/L ALT 24 (7-52) Units/L Alkaline Phosphatase 152 H (34-104) Units/L Albumin 3.5 (3.5-5.7) g/dL - ABG Interpretation ABG results: PT/INR, D-dimer PT 13.4 Seconds (9.4-12.1) H 02/23/19 04:20 Consult Discharge Plan - Plan Referrals: Veronica Horowitz, C WEB DEVELOPER [Primary Care Provider] - 03/03/19 1:00 pm (4) CHF (congestive heart failure) Qualifiers: Heart failure type: unspecified Heart failure chronicity: unspecified Qualified Code(s): I50.9 - Heart failure, unspecified (5) CAD (coronary artery disease) Qualifiers: Coronary Disease-Associated Artery/Lesion type: bypass graft [place] vs. transplanted heart: [place] heart Associated angina: with unstable angina Quali fied Code(s): I25.700 - Atherosclerosis of coronary artery bypass graft(s), unspecified, with unstable angina pectoris (7) Abdominal aortic aneurysm Qualifiers: Presence of rupture: without rupture Qualified Code(s): I71.4 - Abdominal aortic aneurysm, without rupture
[2019-02-28] MEDS ORDERED: Aspirin 81 MG TAB.CHEW PO SCH (09:00)
--- NOTE | 2019-02-28 10:12 | Discharge Summary ---
<Rick Lutzey N - Last Filed: 02/28/19 15:27> Orders not resulted at time of discharge: Pending orders 02/25/19 05:33 Protein Electrophoresis AM 0400 Serum Free Light Chain [[place] Lambda Qnt FLC w Ratio] AM 0400 02/27/19 16:21 Cytology [PTH] Routine 02/27/19 16:25 AFB Culture, Respiratory [TB] Routine AFB Culture, Respiratory [TB] Routine Culture,Respiratory [RM] Routine Culture,Respiratory [RM] Routine Fungal Culture [MYC] Routine Fungal Culture [MYC] Routine 03/01/19 04:00 CMP [Comprehensive Metabolic Panel] AM 0400 Date of Encounter: 02/28/19 Time of Encounter: 10:12 - Discharge Diagnosis (1) COPD exacerbation Priority: Primary Status: Acute (2) Lung mass Priority: Secondary Status: Acute (3) CHF (congestive heart failure) Priority: Secondary Status: Chronic Qualifiers: Heart failure type: unspecified Heart failure chronicity: unspecified Qualified Code(s): I50.9 - Heart failure, unspecified (4) CAD (coronary artery disease) Priority: Secondary Status: Chronic Qualifiers: Coronary Disease-Associated Artery/Lesion type: bypass graft [place] vs. transplanted heart: [place] heart Associated angina: with unstable angina Qualified Code(s): I25.700 - Atherosclerosis of coronary artery bypass graft(s), unspecified, with unstable angina pectoris (5) Atherosclerosis of [place] arteries of extremities with intermittent claudication, bilateral legs Priority: Secondary Status: Chronic (6) Abdominal aortic aneurysm Priority: Secondary Status: Chronic Qualifiers: Presence of rupture: without rupture Qualified Code(s): I71.4 - Abdominal aortic aneurysm, without rupture (7) Acute kidney injury superimposed on chronic kidney disease Priority: Secondary Status: Acute Hospital course: Mr. Ruggiero is a 73 year old male who presents to the emergency department on 02/23/19 complaining of a several day history of chest pain. Patient reported that the pain had gradually worsened to the point that he could no longer tolerate it anymore. Initial vital signs were within normal limits. Laboratory studies were significant for serum creatinine 1.49, troponin of 0.04, and BNP 1762; EKG d emonstrated no evidence of acute ischemia. Patient was also found to have acute exacerbation of COPD, and was started on IV Solu-Medrol and azithromycin. Due to patient's history of cardiac disease, as well as known history of abdominal aortic aneurysm, CT angiogram dissection study was ordered, which demonstrated multiple abnormal findings as follows: * Cardiomegaly and atherosclerotic disease of the aorta. Small right pleural effusion and trace left pleural effusion with adjacent atelectasis and diffuse septal thickening. * Moderate to severe emphysematous changes with upper lobe predominance. * Pulmonary nodule adjacent to the left hilum measuring 2.8 x 2.1 cm concerning for neoplasm. * Pleural based nodule within the right lower lobe measuring 7 mm, as well as 7 mm pulmonary nodule in the right lower lobe concerning for metastasis. * Multiple pulmonary nodules in bilateral upper lobes. * 1.8 cm enlarged right hilar lymph node, and similarly sized left hilar lymph node. Mediastinal adenopathy with enlarged right superior paratracheal lymph node. * Infrarenal abdominal aortic aneurysm measuring 5.2 x 5.7 cm with moderate to severe mural thrombus seen. 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 Complete occlusion of proximal left superficial femoral artery and bilateral internal iliac arteries. Patient was evaluated by cardiology service, with recommendation for echocardiogram, which demonstrated LVEF of 20%. He was started on a statin and Imdur per cardiology recommendations. Vascular surgery consult was placed regarding abdominal aortic aneurysm, as well as extensive atherosclerosis of the lower extremities. At this time, no acute intervention was indicated, and patient advised to follow-up with repeat imaging in approximately 6 months. Patient did have worsening renal function during admission, as noted by continued increase in serum creatinine; nephrology service was consult to an assisted in management of this problem. Due to concern for pulmonary neoplasm, consult to inpatient pulmonology service was placed. Patient underwent bronchoscopy, during which endobronchial ultrasound and biopsies were obtained, as well as BAL. Oncology consult was also placed, with recommendation follow-up as outpatient for results of biopsies and further management. Patient was discharged 1 day after biopsy, at which time he was still requiring 2 L supplemental oxygen via nasal cannula. Oxygen qualification test was performed prior to discharge, and orders were placed for home oxygen therapy. Patient was discharged with antibiotics and steroids to complete therapeutic course, and instructions to follow-up with pulmonology, oncology, and nephrology services. - Time Spent with Patient Total time spent providing and/or coordinating discharge services: - Discharge Medications Prescriptions: New RX: Atorvastatin [Lipitor] 40 mg PO HS #30 tablet RX: Azithromycin [Zithromax] 500 mg PO DAILY 2 Days #4 tablet RX: Budesonide/Formoterol 160/4.5 [Symbicort 160/4.5] 2 puff IH BIDR #1 inh RX: Isosorbide MONOnitrate (24 HR) [Imdur] 30 mg PO DAILY #30 tab.er.24h predniSONE [PredniSONE] 10 mg PO DAILY #30 tablet Continue RX: Zolpidem Tartrate 5 mg PO HS RX: Terazosin HCl 10 mg PO HS RX: Aspirin [Lo-Dose Aspirin EC] 81 mg PO DAILY RX: Furosemide [Lasix] 20 mg PO DAILY #5 tablet RX: Albuterol Sulfate [Albuterol Inhaler] 2 puff IH Q4HR PRN PRN Reason: sob/wheezing RX: Ipratropium/Albuterol Neb [Duoneb] 3 ml IH Q4HR PRN PRN Reason: sob/wheezing RX: Metoprolol XL (24 HR) Succ [Toprol Xl] 25 mg PO DAILY RX: Tiotropium [place] [Spiriva Respimat] 2 inh IH DAILY RX: Terazosin [Hytrin] 10 mg PO HS Home Medications: RX: Aspirin [Lo-Dose Aspirin EC] 81 mg PO DAILY 11/08/17 [History] RX: Terazosin HCl 10 mg PO HS 11/08/17 [History] RX: Zolpidem Tartrate 5 mg PO HS 11/08/17 [History] RX: Furosemide [Lasix] 20 mg PO DAILY #5 tablet 11/09/17 [Rx] RX: Albuterol Sulfate [Albuterol Inhaler] 2 puff IH Q4HR PRN 02/22/19 [History] RX: Ipratropium/Albuterol Neb [Duoneb] 3 ml IH Q4HR PRN 02/22/19 [History] RX: Metoprolol XL (24 HR) Succ [Toprol Xl] 25 mg PO DAILY 02/22/19 [History] RX: Tiotropium [place] [Spiriva Respimat] 2 inh IH DAILY 02/22/19 [History] RX: Terazosin [Hytrin] 10 mg PO HS 02/25/19 [History] RX: Atorvastatin [Lipitor] 40 mg PO HS #30 tablet 02/28/19 [Rx] RX: Azithromycin [Zithromax] 500 mg PO DAILY 2 Days #4 tablet 02/28/19 [Rx] RX: Budesonide/Formoterol 160/4.5 [Symbicort 160/4.5] 2 puff IH BIDR #1 inh 02/28/19 [Rx] RX: Isosorbide MONOnitrate (24 HR) [Imdur] 30 mg PO DAILY #30 tab.er.24h 02/28/19 [Rx] predniSONE [PredniSONE] 10 mg PO DAILY #30 tablet 02/28/19 [Rx] Allergies/Adverse Reactions: Allergy/AdvReac Type Severity Reaction Status Date / Time nitroglycerin Allergy See Verified 02/22/19 17:47 Comments hydromorphone [From Dilaudid] AdvReac Hallucinati Verified 11/08/17 15:38 ng ketorolac [From Toradol] AdvReac Hallucinati Verified 11/08/17 15:38 ng Date of admission: 02/24/19 15:35 Primary care physician: Veronica Horowitz CNP Consults: 02/23/19 03:25 Consult to Nurse Navigator [CONS] Routine Comment: COPD, CHF 02/23/19 04:27 Consult to Cardiology [CONS] Routine Comment: Consulting Provider: [facility] [place] Reason for Consult: Chest pain, history of quadruple bypass and 7 stents. 5.7 cm infrarenal abdominal aortic aneurysm Call Completed: Yes 02/23/19 04:30 Consult to Vascular Surgery [CONS] Routine Consulting Provider: Vascular Surgery [place] Reason for Consult: 5.7cm infrarenal abdominal aortic aneurysm Call Completed: Yes 02/23/19 11:51 Consult to Oncology Hematology [CONS] Routine Consulting Provider: Navid De Los Santos Reason for Consult: Lung mass Time Notified: 11:51 Call Completed: Yes 02/24/19 09:08 Consult to Pulmonology [CONS] Routine Consulting Provider: [facility] [place] Reason for Consult: left hilar mass, bronchoscopy Call Completed: Yes 02/24/19 09:42 Consult to Nephrology [CONS] Routine Consulting Provider: [facility] [place]/MABEL/JESSICA/HERBERT Reason for Consult: acute on chronic kidney disease. May need [facility] Call Completed: Yes Discharging clinician: Nikia Lutz Anticipated date of discharge: 02/28/19 - Constitutional Vitals: Temp Pulse Resp BP Pulse Ox 97.7 F 75 15 119/71 99 02/28/19 07:20 02/28/19 07:20 02/28/19 07:20 02/28/19 07:20 02/28/19 07:20 Exam: GENERAL: Pleasant adult male resting in bed in no acute distress. HEENT: Atraumatic and normocephalic. CARDIOVASCULAR: Regular rate and rhythm. S1 and S2 present. No murmurs, gallops, or rubs. RESPIRATORY: Decreased breath sounds bilaterally with wheezes present. GASTROINTESTINAL: Abdomen is soft, nontender, nondistended. EXTREMITIES: No clubbing, cyanosis, or edema. SKIN: Warm, dry, and intact. NEUROLOGIC: Alert and oriented x3. Patient is cooperative with exam and answers questions appropriately. No apparent focal deficits. PSYCHIATRIC: Appropriate mood and affect. - Patient Status Disposition: Home, Self-Care Condition: Good Functional capacity at discharge: independent ambulation Overall status at discharge: patient is progressing back to baseline - Ambulatory Orders Ambulatory Orders: Basic Metabolic Panel [CHEM] Time Frame: 1 Week, Location: Determined By Patient - Discharge Instructions Follow Up With: Ajay Perdomo MD [Non-Partnered Physician] - Gagan Walton MD [Partnered Physician] - (Hospital follow up has been webrequested. Office will contact you with follow up appointment.) Veronica Horowitz CNP [Primary Care Provider] - 03/03/19 1:00 pm Nigel Holden MD [Partnered Physician] - (Hospital follow up has been webrequested. Office will contact you with follow up appointment. ) Rell Rodriguez MD [Partnered Physician] - (Hospital follow up has been webrequested. Office will contact you with follow up appointment.) Forms: ED Satisfaction Letter Additional Instructions: Home oxygen has been set up through [employer] in [place]. You will need to call them when you get home to have them deliver equipment. Their number is #[phone]. Follow up with her primary care provider in 3-5 days for reevaluation. Follow up with pulmonology and oncology as scheduled. Have a repeat metabolic panel drawn in 1 week and follow-up in the outpatient nephrology clinic. Take azithromycin 500 mg daily beginning tomorrow (03/01/2019). Continue taking oral prednisone as follows: take 40 mg daily for 3 days, then take 30 mg daily for 3 days, then take 20 mg daily for 3 days, then take 10 mg daily for 3 days, then stop. Return to the emergency department if you have worsening shortness of breath, fevers, chills, chest pain, or if any new concerns arise. - Diet and Activity Activity: increase activity as tolerated Diet: low salt diet <Elodia Clemens - Last Filed: 02/28/19 15:58> Orders not resulted at time of discharge: Pending orders 02/25/19 05:33 Protein Electrophoresis AM 0400 Serum Free Light Chain [[place] Lambda Qnt FLC w Ratio] AM 0400 02/27/19 16:21 Cytology [PTH] Routine 02/27/19 16:25 AFB Culture, Respiratory [TB] Routine AFB Culture, Respiratory [TB] Routine Culture,Respiratory [RM] Routine Culture,Respiratory [RM] Routine Fungal Culture [MYC] Routine Fungal Culture [MYC] Routine 03/01/19 04:00 CMP [Comprehensive Metabolic Panel] AM 0400 Date of Encounter: 02/28/19 - Discharge Diagnosis (1) COPD exacerbation Status: Acute (2) CAD (coronary artery disease) Status: Chronic Qualifiers: Coronary Disease-Associated Artery/Lesion type: bypass graft [place] vs. transplanted heart: [place] heart Associated angina: with unstable angina Qualified Code(s): I25.700 - Atherosclerosis of coronary artery bypass graft(s), unspecified, with unstable angina pectoris (3) CHF (congestive heart failure) Status: Chronic Qualifiers: Heart failure type: unspecified Heart failure chronicity: unspecified Qualified Code(s): I50.9 - Heart failure, unspecified (4) Abdominal aortic aneurysm Status: Chronic Qualifiers: Presence of rupture: without rupture Qualified Code(s): I71.4 - Abdominal aortic aneurysm, without rupture (5) Lung mass Status: Acute (6) Atherosclerosis of [place] arteries of extremities with intermittent claudication, bilateral legs Status: Chronic (7) Acute kidney injury superimposed on chronic kidney disease Status: Acute Hospital course: Mr. Ruggiero is a 73 year old male - Time Spent with Patient Total time spent providing and/or coordinating discharge services: Time spent: Greater than 30 minutes Date of admission: 02/24/19 15:35 Primary care physician: Veronica Horowitz CNP Consults: 02/23/19 03:25 Consult to Nurse Navigator [CONS] Routine Comment: COPD, CHF 02/23/19 04:27 Consult to Cardiology [CONS] Routine Comment: Consulting Provider: Card[facility] [place] Reason for Consult: Chest pain, history of quadruple bypass and 7 stents. 5.7 cm infrarenal abdominal aortic aneurysm Call Completed: Yes 02/23/19 04:30 Consult to Vascular Surgery [CONS] Routine Consulting Provider: V[facility] [place] Reason for Consult: 5.7cm infrarenal abdominal aortic aneurysm Call Completed: Yes 02/23/19 11:51 Consult to Oncology Hematology [CONS] Routine Consulting Provider: Navid De Los Santos Reason for Consult: Lung mass Time Notified: 11:51 Call Completed: Yes 02/24/19 09:08 Consult to Pulmonology [CONS] Routine Consulting Provider: [facility]m [facility] [place] Reason for Consult: left hilar mass, bronchoscopy Call Completed: Yes 02/24/19 09:42 Consult to Nephrology [CONS] Routine Consulting Provider: [facility] [place]/MABEL/JESSICA/HERBERT Reason for Consult: acute on chronic kidney disease. May need [facility] Call Completed: Yes - Constitutional Vitals: Temp Pulse Resp BP Pulse Ox 97.5 F L 81 19 107/63 96 02/28/19 14:43 02/28/19 14:43 02/28/19 14:43 02/28/19 14:43 02/28/19 14:43 - Attending Attestation Patient was seen and examined. I agree with the discharge document as written by the resident physician. Patient admitted with shortness of breath and chest pain. The patient was evaluated by multiple specialties. He was evaluated for chest pain initially was put on a heparin drip for possible unstable angina due to elevated troponins which have trended down. Eventually the heparin drip was stopped. He was noted to have an EF of 20% which is known for him on echocardiogram. While he was also here, he had a study to rule out aortic dissection but found an abdominal aortic aneurysm which was evaluated by vascular and for now they plan on just monitoring that with imaging studies down the road. He was also on IV Solu-Medrol as well as Zithromax for COPD exacerbation. Discharged on oral prednisone taper and a couple days of azithromax. He was also noted to have a long nodule/mass which pulmonology saw and a broch with biopsy was done. Pathology is still pending. Will follow up with them and oncology. GEN: NAD CVS: RRR. S1, S2, No m/r/g RESP: dimished ABD: Soft, NT, ND, +BS EXT: No edema. 2+ DP. No rashes NEURO: Nonfoca 35 minutes was spent on the coordination of this discharge with the patient, nursing staff, and care coordinators.
[2019-02-28] MEDS: Isosorbide MONOnitrate (24 HR) 30 MG TAB.ER.24H PO SCH (10:19)
[2019-02-28] MEDS: Metoprolol XL (24 HR) Succ 25 MG TAB.ER.24H PO SCH (10:19)
[2019-02-28] MEDS ORDERED: Azithromycin 250 MG TABLET PO SCH (11:00)
[2019-02-28] MEDS: Budesonide/Formoterol 160/4.5 1 PUFF INH IH SCH (11:18)
[2019-02-28 14:44] VITALS: BP 107/63
--- NOTE | 2019-02-28 14:47 | Oncology Inp Progress Note ---
Date of Encounter: 02/28/19 Time of Encounter: 08:00 (1) Lung mass Current Visit: Yes Status: Acute Assessment and plan: Patient with history of COPD, ischemic cardiomyopathy with low ejection fraction, mediastinal adenopathy left hilar mass, pulmonary nodule suspicious for malignancy with metastatic disease. S/p bronch procedure and bx. Appears stable. Possible d/c home today. F/U out pt with onc, Dr De Los Santos with results. Oncology: Subj Interval history: SOB at baseline 2 lt O2, s/p bronch yesterday, denies pain, cough or hemoptysis - Constitutional General appearance: no acute distress - Head Head exam: Present: atraumatic, normal inspection - Eye Eye exam: Present: sclera anicteric - ENT Additional comments: O2 NC - Respiratory Respiratory exam: Present: CTAB - Cardiovascular Cardiovascular exam: Present: +S1, +S2 - Extremities Exam Extremities exam: Present: normal capillary refill, normal inspection - Neurological Exam Neurological exam: Present: alert, CN II-XII intact, oriented X3 - Skin Additional comments: skin bruising Oncology: Obj Data - Labs CBC & Chem 7: 02/28/19 06:15 02/28/19 06:15 Consult Discharge Plan - Plan Additional Instructions: Home oxygen has been set up through [employer] in [place]. You will need to call them when you get home to have them deliver equipment. Their number is #[phone]. Follow up with her primary care provider in 3-5 days for reevaluation. Follow up with pulmonology and oncology as scheduled. Have a repeat metabolic panel drawn in 1 week and follow-up in the outpatient nephrology clinic. Take azithromycin 500 mg daily beginning tomorrow (03/01/2019). Continue taking oral prednisone as follows: take 40 mg daily for 3 days, then take 30 mg daily for 3 days, then take 20 mg daily for 3 days, then take 10 mg daily for 3 days, then stop. Return to the emergency department if you have worsening shortness of breath, fevers, chills, chest pain, or if any new concerns arise. Referrals: Veronica Horowitz CNP [Primary Care Provider] - 03/03/19 1:00 pm Prescriptions: Atorvastatin [Lipitor] 40 mg PO HS #30 tablet Azithromycin [Zithromax] 500 mg PO DAILY 2 Days #4 tablet Budesonide/Formoterol 160/4.5 [Symbicort 160/4.5] 2 puff IH BIDR #1 inh Isosorbide MONOnitrate (24 HR) [Imdur] 30 mg PO DAILY #30 tab.er.24h predniSONE [PredniSONE] 10 mg PO DAILY #30 tablet Inpatient Charges Provider: Dr. Tigist Rodriguez Follow up - Inpatient: [id number]
--- NOTE | 2019-02-28 15:40 | Pulmonology Progress Note ---
Date of Encounter: 02/28/19 Time of Encounter: 14:00 Assessment and Plan (1) Lung mass Current Visit: Yes Status: Acute Patient is feeling better after bronchoscopy and removal of mucous plugs. I have had multiple discussion with the pathologist and cell block is still pending and expected to be finalized tomorrow and I told patient he can follow- up as outpatient and as soon as I hear any results then will notify patient. (2) COPD (chronic obstructive pulmonary disease) Current Visit: No Status: Chronic Continue current treatment. Qualifiers: Qualified Code(s): J44.1 - Chronic obstructive pulmonary disease with (acute) exacerbation Subjective Principal diagnosis: COPD exacerbation Interval history: Patient status post bronchoscopy and there is still pending. Patient stated he is breathing better now after bronchoscopy and he wants to go home. Objective PUL Vital signs: Last Vital Signs Temp 97.5 F L 02/28/19 14:43 Pulse 81 02/28/19 14:43 Resp 19 02/28/19 14:43 BP 107/63 02/28/19 14:43 Pulse Ox 96 02/28/19 14:43 General: Patient is in no acute distress. HEENT: Normocephalic atraumatic, pupils are equal round and reactive to light and accommodation, anicteric sclera, nares is patent, mucous membranes moist, no JVD, trachea is midline Cardiovascular: Normal sinus rhythm, S1 and S2 audible, no murmur or rubs Respiratory: Diminished with scattered rhonchi to auscultation bilaterally. No acute distress. No wheezing. Patient not using accessory muscles. Abdomen: Soft, nontender, nondistended, positive bowel sounds in all 4 quadrants Extremities: Warm, dry, no lower extremity edema. Normal capillary refill. Neuro: Alert and oriented and follows commands. Grossly no neuro deficits. Skin: Warm to touch : No obvious abnormalities. Psych: Normal Results - Laboratory Findings CBC and BMP: 02/28/19 06:15 02/28/19 06:15 PT/INR, D-dimer PT 13.4 Seconds (9.4-12.1) H 02/23/19 04:20 Abnormal lab findings: Abnormal lab results Hgb 11.7 g/dL (12.9-16.9) L 02/28/19 06:15 MCH 25.9 pg (28.0-33.3) L 02/28/19 06:15 MCHC 30.5 g/dL (31.6-35.5) L 02/28/19 06:15 RDW 17.1 % (11.5-14.5) H 02/28/19 06:15 Plt Count 113 K/mcL (140-400) L 02/28/19 06:15 Lymphocytes # 0.5 K/mcL (0.6-4.6) L 02/28/19 06:15 PT 13.4 Seconds (9.4-12.1) H 02/23/19 04:20 BUN 51 mg/dL (8-23) H 02/28/19 06:15 Creatinine 2.08 mg/dL (0.70-1.30) H 02/28/19 06:15 Est GFR ( Amer) 38 (> 60) L 02/28/19 06:15 Est GFR (Non-Af Amer) 31 (> 60) L 02/28/19 06:15 Glucose 137 mg/dL (70-105) H 02/28/19 06:15 Calculated Osmolality 302 (280-300) H 02/28/19 06:15 Iron 14 mcg/dL (65-175) L 02/25/19 05:33 % Saturation 3 % (20-55) L 02/25/19 05:33 Alkaline Phosphatase 152 Units/L (34-104) H 02/28/19 06:15 Troponin I 0.04 ng/mL (< 0.04) H* 02/23/19 04:20 B-Natriuretic Peptide 1762 pg/mL (Less than 100) H 02/22/19 18:47 Serum Total Protein 6.3 g/dL (6.4-8.9) L 02/28/19 06:15 Urine Protein 30 mg/dL (Neg-Trace) H 02/25/19 16:04 Ur Squamous Epith Cells Moderate per lpf (None-Few) H 02/25/19 16:04 Fluid Appearance Cloudy (Clear) A 02/27/19 16:25 - Microbiology Findings Microbiology Findings: Microbiology, Last 48 Hours 02/27/19 16:25 Fungal Culture - Preliminary Left Upper Lobe Lung Culture is incubating. 02/27/19 16:25 Fungal Culture - Preliminary Left Upper Lobe Lung Culture is incubating. 02/27/19 16:25 Respiratory Culture - Preliminary Left Upper Lobe Lung 02/27/19 16:25 Respiratory Culture - Preliminary Left Upper Lobe Lung - Clinical Findings Intake & Output: Intake & Output 02/27/19 02/28/19 02/28/19 23:59 07:59 15:59 Intake Total 120 / 120 Output Total 275 / 275 250 / 250 Balance -275 / -275 -250 / -250 120 / 120 Weight 71.4 kg Consult Discharge Plan - Plan Additional Instructions: Home oxygen has been set up through [employer] in [place]. You will need to call them when you get home to have them deliver equipment. Their number is #[phone]. Follow up with her primary care provider in 3-5 days for reevaluation. Follow up with pulmonology and oncology as scheduled. Have a repeat metabolic panel drawn in 1 week and follow-up in the outpatient nephrology clinic. Take azithromycin 500 mg daily beginning tomorrow (03/01/2019). Continue taking oral prednisone as follows: take 40 mg daily for 3 days, then take 30 mg daily for 3 days, then take 20 mg daily for 3 days, then take 10 mg daily for 3 days, then stop. Return to the emergency department if you have worsening shortness of breath, fevers, chills, chest pain, or if any new concerns arise. Referrals: Ajay Perdomo MD [Non-Partnered Physician] - Gagan Walton MD [Partnered Physician] - (Hospital follow up has been webrequested. Office will contact you with follow up appointment.) Veronica Horowitz CNP [Primary Care Provider] - 03/03/19 1:00 pm Nigel Holden MD [Partnered Physician] - (Hospital follow up has been webrequested. Office will contact you with follow up appointment. ) Rell Rodriguez MD [Partnered Physician] - (Hospital follow up has been webrequested. Office will contact you with follow up appointment.) Prescriptions: Atorvastatin [Lipitor] 40 mg PO HS #30 tablet Azithromycin [Zithromax] 500 mg PO DAILY 2 Days #4 tablet Budesonide/Formoterol 160/4.5 [Symbicort 160/4.5] 2 puff IH BIDR #1 inh Isosorbide MONOnitrate (24 HR) [Imdur] 30 mg PO DAILY #30 tab.er.24h predniSONE [PredniSONE] 10 mg PO DAILY #30 tablet
[2019-03-01 05:35] LABS: Kappa Qnt Free Light Chains 5.04 mg/dL (0.33-1.94); Lambda Qnt Free Light Chains 2.92 mg/dL (0.57-2.63)
--- NOTE | 2019-03-01 11:21 | Physician Discharge Referral ---
Home Health/Hosp Referral Info Transfer to: Home Health Provider in Charge Post Discharge: PCP - Diagnosis (1) Unstable angina Status: Deleted (2) Lung mass Status: Acute (3) CKD (chronic kidney disease) stage 3, GFR 30-59 ml/min Status: Acute (4) Tobacco dependence Status: Chronic (5) Abdominal aortic aneurysm Status: Chronic (6) COPD exacerbation Status: Acute (7) Elevated troponin Status: Deleted (8) CAD (coronary artery disease) Status: Chronic (9) CHF (congestive heart failure) Status: Chronic - Respiratory Orders Smoking Cessation: Smoking cessation has been advised. For more information, call the [place] Tobacco Quit Line at 2-043-IOXK-NOW. - Services Needed Following services are medically necessary services: Nursing, Home Health Aide - Transfer Medications Prescriptions: Atorvastatin [Lipitor] 40 mg PO HS #30 tablet Azithromycin [Zithromax] 500 mg PO DAILY 2 Days #4 tablet Budesonide/Formoterol 160/4.5 [Symbicort 160/4.5] 2 puff IH BIDR #1 inh Isosorbide MONOnitrate (24 HR) [Imdur] 30 mg PO DAILY #30 tab.er.24h predniSONE [PredniSONE] 10 mg PO DAILY #30 tablet Home Medications: Aspirin [Lo-Dose Aspirin EC] 81 mg PO DAILY 11/08/17 [History] Terazosin HCl 10 mg PO HS 11/08/17 [History] Zolpidem Tartrate 5 mg PO HS 11/08/17 [History] Furosemide [Lasix] 20 mg PO DAILY #5 tablet 11/09/17 [Rx] Albuterol Sulfate [Albuterol Inhaler] 2 puff IH Q4HR PRN 02/22/19 [History] Ipratropium/Albuterol Neb [Duoneb] 3 ml IH Q4HR PRN 02/22/19 [History] Metoprolol XL (24 HR) Succ [Toprol Xl] 25 mg PO DAILY 02/22/19 [History] Tiotropium [place] [Spiriva Respimat] 2 inh IH DAILY 02/22/19 [History] Terazosin [Hytrin] 10 mg PO HS 02/25/19 [History] Atorvastatin [Lipitor] 40 mg PO HS #30 tablet 02/28/19 [Rx] Azithromycin [Zithromax] 500 mg PO DAILY 2 Days #4 tablet 02/28/19 [Rx] Budesonide/Formoterol 160/4.5 [Symbicort 160/4.5] 2 puff IH BIDR #1 inh 02/28/19 [Rx] Isosorbide MONOnitrate (24 HR) [Imdur] 30 mg PO DAILY #30 tab.er.24h 02/28/19 [Rx] predniSONE [PredniSONE] 10 mg PO DAILY #30 tablet 02/28/19 [Rx] Allergies/Adverse Reactions: Allergy/AdvReac Type Severity Reaction Status Date / Time nitroglycerin Allergy See Verified 02/22/19 17:47 Comments hydromorphone [From Dilaudid] AdvReac Hallucinati Verified 11/08/17 15:38 ng ketorolac [From Toradol] AdvReac Hallucinati Verified 11/08/17 15:38 ng Certification: Further, I certify that my clinical findings support that this patient is homebound (i.e. absences from home require considerable and taxing effort and are for medical reasons or latter day services or infrequently or short duration when for other reasons) because: Homebound Reason: Patient requires assistance of a person or device to safely leave home Attestation: My signature below is to certify that this patient is under my care and that I, or nurse practitioner, or a physician's speech and language assistant working with me, has a [id number] encounter with this patient.
[2019-03-02 00:22] LABS: Alpha 2 Globulin (PEP) 0.82 g/dL (0.48-1.05); Beta Globulin (PEP) 1.07 g/dL (0.48-1.10)
[2019-03-02 10:19] LABS: IFE Reflexed IFE Done; Immunoglobulin A 588 mg/dL (68-408); Immunoglobulin G 1210 mg/dL (768-1632); Immunoglobulin M 115 mg/dL (35-263)
== END 2019-02-28 16:40 | disposition home or self-care (01) | DRG 190 ==
LOC: EMEROOARM 17:11 → 3BNU 17:11
PROVIDERS: ADMIT Family Medicine; ATTEND Internal Medicine
PROC: ENDOBRF (2019-02-27 18:40)

== ENCOUNTER 2019-03-27 12:21 | Observation (INO) ==
[2019-03-27] MEDS ORDERED: *HR* Morphine 2 MG/ML SYRINGE IVP ONE ×4 (12:36→22:10)
[2019-03-27] MEDS ORDERED: Aspirin 81 MG TAB.CHEW PO ONE (12:36)
[2019-03-27] MEDS ORDERED: Ipratropium/Albuterol Neb 3 ML IH ONE (12:39)
[2019-03-27 13:08] LABS: Basophils % 0.6 %; Eosinophils # 0.2 K/mcL (0.0-0.6); Eosinophils % 3.5 %; Hematocrit 43.9 % (37.5-50.1); Hemoglobin 13.1 g/dL (12.9-16.9); Immature Granulocytes % 0.6 % (0-4); Lymphocytes # 1.3 K/mcL (0.6-4.6); Lymphocytes % 19.3 %; Mean Corpuscular HGB Conc 29.8 g/dL (31.6-35.5); Mean Corpuscular Hemoglobin 24.7 pg (28.0-33.3); Mean Corpuscular Volume 82.8 fL (83.0-100.0); Mean Platelet Volume 10.2 fL (9.4-12.4); Monocytes # 0.6 K/mcL (0.0-1.3); Monocytes % 9.4 %; Neutrophils # 4.3 K/mcL (1.6-8.9); Platelet Count 136 K/mcL (140-400); Red Cell Distribution Width 18.1 % (11.5-14.5); Segmented Neutrophils % 66.6 %
[2019-03-27 13:12] LABS: INR 1.1; Prothrombin Time 12.3 Seconds (9.4-12.1)
[2019-03-27 13:14] LABS: Activated Partial Thrombo Time 29.4 Seconds (26.0-36.0)
[2019-03-27 13:28] LABS: Calcium 8.7 mg/dL (8.6-10.3); Potassium 4.2 mEq/L (3.5-5.1); Troponin I 0.05 ng/mL (< 0.04)
--- NOTE | 2019-03-27 14:26 | Emergency Department Note ---
Disposition Clinical Impression: Chest pain Disposition: Admitted As Inpatient Condition: Good Referrals: Ashley Arnett CNP [Primary Care Provider] - Forms: ED Satisfaction Letter Time of Disposition: 14:41 Chest Pain HPI - General Chief Complaint: ED Chest Pain Stated Complaint: Chest Pain Time Seen by Provider: 03/27/19 12:30 Source: patient Limitations: no limitations - History of Present Illness HPI Narrative: Patient is a 73-year-old gentleman who presents to emergency department with chief complaint of chest pain. The patient states the pain has started approximately 2 AM and states that it radiates up into his arms. The patient reports she also is having shortness of breath with this and states that he chronically wheezes. Patient has prior history of both cardiac disease with multiple stents and also has history of of black lung and COPD. The patient also reports that he continues to smoke. The patient states the pain is still continued to not improved by anything nor is it worsened by anything. The patient reports that he took a aspirin prior to arrival in the emergency d epartment and also reports that he has prior history of allergy to nitroglycerin. Pt complaint: chest pain Severity scale (1-10): 9 - Related Data Home Medications Medication Instructions Recorded Confirmed Zolpidem Tartrate 5 mg PO HS PRN 11/08/17 03/16/19 Albuterol Sulfate [Albuterol 2 puff IH Q4HR PRN 02/22/19 03/16/19 Inhaler] Ipratropium/Albuterol Neb [Duoneb] 3 ml IH Q4HR PRN 02/22/19 03/16/19 Metoprolol XL (24 HR) Succ [Toprol 25 mg PO DAILY 02/22/19 03/16/19 Xl] Terazosin [Hytrin] 10 mg PO HS 02/25/19 03/16/19 Previous Rx's Medication Instructions Recorded Furosemide [Lasix] 20 mg PO DAILY #5 tablet 11/09/17 Atorvastatin [Lipitor] 40 mg PO HS #30 tablet 02/28/19 Budesonide/Formoterol 160/4.5 2 puff IH BIDR #1 inh 02/28/19 [Symbicort 160/4.5] Isosorbide MONOnitrate (24 HR) 60 mg PO DAILY #30 tab.er.24h 03/17/19 [Imdur] Ranolazine [Ranexa] 500 mg PO BID #60 tab.er.12h 03/17/19 predniSONE [PredniSONE] 40 mg PO DAILY #3 tablet 03/17/19 Allergies Allergy/AdvReac Type Severity Reaction Status Date / Time nitroglycerin Allergy See Verified 03/07/19 14:12 Comments hydromorphone [From Dilaudid] AdvReac Hallucinati Verified 03/07/19 14:12 ng ketorolac [From Toradol] AdvReac Hallucinati Verified 03/07/19 14:12 ng All systems ED: reviewed and negative except as stated. Chest Pain PMH - Past Medical History Medical history: Reports: CHF, COPD, coronary artery disease, hypertension, kidney stones, myocardial infarction Surgical history: Reports: angioplasty/stent, appendectomy, coronary bypass (CABG) Psychiatric history: Reports: PTSD - Social History Smoking Status: Current every day smoker Alcohol use: Reports: none Drug use: Reports: none Physical Exam General: Conversant and pleasant interactive and nontoxic. Head: Normocephalic/atraumatic Eyes:PERRLA, EOMI, no conjunctivitis Nares: Without d/c. Ears: No erythema or d/c noted. Oralpharnyx: P&MMM noted, Neck: Supple, no JVD or BEHAVIORAL SCIENTIST noted. Cardovascular: regular rate and rhythm without murmur, brisk capillary refill, no peripheral edema. Lungs: Scattered wheezes present bilaterally, non-labored Abd: Soft nontender, Non Distended, no guarding, no rebound. : Defered Extremities: moves all extremities equally Neuro: AOx3, no obvious gross neuro deficit Psych: Normal Affect Derm: No rash noted - General Limitations: no limitations General appearance: alert, in no apparent distress Course Vital Signs Temperature 98 F 03/27/19 12:25 Pulse Rate 84 03/27/19 12:25 Respiratory Rate 20 03/27/19 12:25 Blood Pressure 132/81 03/27/19 12:25 O2 Sat by Pulse Oximetry 100 03/27/19 12:25 Temperature 98 F 03/27/19 12:31 Pulse Rate 92 03/27/19 14:15 Respiratory Rate 11 03/27/19 14:15 Blood Pressure 130/88 03/27/19 14:15 O2 Sat by Pulse Oximetry 100 03/27/19 14:15 Oxygen Delivery Oxygen Delivery Nasal Cannula Chest Pain - MDM Narrative Medical decision making narrative: Given the patient's clinical history and also mildly elevated troponin case was discussed with the hospitalist initially admitted for serial cardiac markers - Lab Data Result diagrams: 03/27/19 12:52 03/27/19 12:52 Lab Results 03/27/19 03/27/19 03/27/19 Range/Units 12:52 12:52 12:52 WBC 6.5 (4.3-11.1) K/mcL RBC 5.30 (4.19-5.50) M/mcL Hgb 13.1 (12.9-16.9) g/dL Hct 43.9 (37.5-50.1) % MCV 82.8 L (83.0-100.0) fL MCH 24.7 L (28.0-33.3) pg MCHC 29.8 L (31.6-35.5) g/dL RDW 18.1 H (11.5-14.5) % Plt Count 136 L (140-400) K/mcL MPV 10.2 (9.4-12.4) fL Immature Gran % 0.6 (0-4) % Seg Neutrophils % 66.6 % Lymphocytes % 19.3 % Monocytes % 9.4 % Eosinophils % 3.5 % Basophils % 0.6 % Neutrophils # 4.3 (1.6-8.9) K/mcL Lymphocytes # 1.3 (0.6-4.6) K/mcL Monocytes # 0.6 (0.0-1.3) K/mcL Eosinophils # 0.2 (0.0-0.6) K/mcL Basophils # 0.0 (0.0-0.2) K/mcL PT 12.3 H (9.4-12.1) Seconds INR 1.1 APTT 29.4 (26.0-36.0) Seconds Sodium (136-145) mEq/L Potassium (3.5-5.1) mEq/L Chloride (98-107) mEq/L Carbon Dioxide (23-29) mEq/L BUN (8-23) mg/dL Creatinine (0.70-1.30) mg/dL Est GFR ( Amer) (> 60) Est GFR (Non-Af Amer) (> 60) BUN/Creatinine Ratio (6-26) Glucose (70-105) mg/dL Calculated Osmolality (280-300) Calcium (8.6-10.3) mg/dL Troponin I (< 0.04) ng/mL B-Natriuretic Peptide 2116 H (Less than 100) pg/mL 03/27/19 Range/Units 12:52 WBC (4.3-11.1) K/mcL RBC (4.19-5.50) M/mcL Hgb (12.9-16.9) g/dL Hct (37.5-50.1) % MCV (83.0-100.0) fL MCH (28.0-33.3) pg MCHC (31.6-35.5) g/dL RDW (11.5-14.5) % Plt Count (140-400) K/mcL MPV (9.4-12.4) fL Immature Gran % (0-4) % Seg Neutrophils % % Lymphocytes % % Monocytes % % Eosinophils % % Basophils % % Neutrophils # (1.6-8.9) K/mcL Lymphocytes # (0.6-4.6) K/mcL Monocytes # (0.0-1.3) K/mcL Eosinophils # (0.0-0.6) K/mcL Basophils # (0.0-0.2) K/mcL PT (9.4-12.1) Seconds INR APTT (26.0-36.0) Seconds Sodium 138 (136-145) mEq/L Potassium 4.2 (3.5-5.1) mEq/L Chloride 106 (98-107) mEq/L Carbon Dioxide 24 (23-29) mEq/L BUN 24 H (8-23) mg/dL Creatinine 1.52 H (0.70-1.30) mg/dL Est GFR ( Amer) 55 L (> 60) Est GFR (Non-Af Amer) 45 L (> 60) BUN/Creatinine Ratio 16 (6-26) Glucose 161 H (70-105) mg/dL Calculated Osmolality 294 (280-300) Calcium 8.7 (8.6-10.3) mg/dL Troponin I 0.05 H* (< 0.04) ng/mL B-Natriuretic Peptide (Less than 100) pg/mL Heart Score - Score History: Moderately Suspicious EKG: Non Specific repolarisation Disturbance Age: Greater than 65 Risk Factors: Equal/Greater than 3 risk factor or history of atherosclerotic disease Troponin: 1-3x normal limit HEART Score Total: 7
[2019-03-27] MEDS ORDERED: Ondansetron 4 MG/2 ML VIAL IVP PRN (15:10)
[2019-03-27] MEDS ORDERED: Acetaminophen 325 MG TABLET PO PRN (15:10)
[2019-03-27] MEDS ORDERED: Naloxone 0.4 MG/ML INJ IVP PRN (15:10)
--- NOTE | 2019-03-27 16:16 | Internal Med History&Physical ---
Date of Encounter: 03/27/19 Time of Encounter: 16:09 Internal Medicine - H&P: HPI Chief complaint: Chest pain Admitted From: Emergency Dept Plans for Post Hospital Care: Home History of present illness: Mr. Ruggiero is a 73 year old male with known past medical history of hypertension, hyperlipidemia, CAD status post CABG, CKD-3, ischemic cardiomyopathy status post AICD, Systolic CHF with EF 20 %, who recently had LHC with no interventions at [facility], since and patient present to our hospital 3 times with left chest wall pain radiating to his left shoulder recently left AMA on 03/17/19, now he came back to ER again with the left chest wall pain radiating to his left shoulder. Patient stated his pain is more like continuous pain, relieved by IV pain medication only. Today in the ER his initial troponin @ 0.05. EKG did not show any acute ischemic changes. Patient still complaining about left chest wall pain and asking for pain medication Past Med Surg Social Fam HX - Past Medical History Medical history: CHF, COPD, coronary artery disease, hypertension, kidney stones, myocardial infarction Additional medical history: [place] Psychiatric history: PTSD - Past Surgical History Surgical History: angioplasty/stent, appendectomy, coronary bypass (CABG) Additional surgical history: 7 stents, CABG (approximately 2006) - Social History Smoking Status: Current every day smoker Smokeless Tobacco Status: No Alcohol use: none Drug use: none - Family History Mother Living Status: Hx Family Cardiac Disorders: Yes ("bad heart") Hx Family Cancer: Yes (Colon Cancer) Father Living Status: Hx Family Cardiac Disorders: Yes ([place]) Hx Family Cancer: Yes (Lung Cancer) Internal Medicine - H&P: Meds Zolpidem Tartrate 5 mg PO HS PRN 11/08/17 [History] Furosemide [Lasix] 20 mg PO DAILY #5 tablet 11/09/17 [Rx] Albuterol Sulfate [Albuterol Inhaler] 2 puff IH Q4HR PRN 02/22/19 [History] Ipratropium/Albuterol Neb [Duoneb] 3 ml IH Q4HR PRN 02/22/19 [History] Metoprolol XL (24 HR) Succ [Toprol Xl] 25 mg PO DAILY 02/22/19 [History] Terazosin [Hytrin] 10 mg PO HS 02/25/19 [History] Atorvastatin [Lipitor] 40 mg PO HS #30 tablet 02/28/19 [Rx] Budesonide/Formoterol 160/4.5 [Symbicort 160/4.5] 2 puff IH BIDR #1 inh 02/28/19 [Rx] Isosorbide MONOnitrate (24 HR) [Imdur] 60 mg PO DAILY #30 tab.er.24h 03/17/19 [Rx] Ranolazine [Ranexa] 500 mg PO BID #60 tab.er.12h 03/17/19 [Rx] predniSONE [PredniSONE] 40 mg PO DAILY #3 tablet 03/17/19 [Rx] Allergy/AdvReac Type Severity Reaction Status Date / Time nitroglycerin Allergy See Verified 03/07/19 14:12 Comments hydromorphone [From Dilaudid] AdvReac Hallucinati Verified 03/07/19 14:12 ng ketorolac [From Toradol] AdvReac Hallucinati Verified 03/07/19 14:12 ng All Systems PM: A 10-system review of systems was performed and is negative for pertinent findings except as documented above in the HPI. Review of systems: All the systems are reviewed everything is benign except the systems and symptoms I mentioned in the history of present illness - Constitutional Vitals: Temp Pulse Resp BP Pulse Ox 98 F 87 22 134/82 98 03/27/19 12:31 03/27/19 15:23 03/27/19 15:23 03/27/19 15:23 03/27/19 15:23 General appearance: Present: cooperative, mild distress (With chest pain), A&O X 3, answers questions appropriately Exam: a - Head Head exam: Present: atraumatic, normal inspection - Neck Neck exam general surgery: Present: supple - Respiratory Respiratory exam: Present: decreased breath sounds, wheezes (Mild). Absent: rales, respiratory distress, rhonchi - Cardiovascular Cardiovascular exam: Present: RRR, +S1, +S2. Absent: tachycardia - GI/Abdominal GI/Abdominal exam: Present: normal bowel sounds, soft. Absent: rebound, rigid, tenderness - Extremities Exam Extremities exam: Absent: calf tenderness, pedal edema, tenderness - Back Exam Back exam: Absent: CVA tenderness (L), CVA tenderness (R) - Neurological Exam Neurological exam: Present: alert, oriented X3 - Psychiatric Psychiatric exam: Present: normal affect, normal mood - Skin Skin exam: Absent: rash Internal Med - H&P Results - Labs CBC & Chem 7: 03/27/19 12:52 03/27/19 12:52 Labs: Short CBC 03/27/19 Range/Units 12:52 WBC 6.5 (4.3-11.1) K/mcL Hgb 13.1 (12.9-16.9) g/dL Hct 43.9 (37.5-50.1) % Plt Count 136 L (140-400) K/mcL Neutrophils # 4.3 (1.6-8.9) K/mcL BMP 03/27/19 12:52 Sodium 138 Potassium 4.2 Chloride 106 Carbon Dioxide 24 BUN 24 H Creatinine 1.52 H Glucose 161 H Calcium 8.7 Cardiac Enzymes 03/27/19 Range/Units 12:52 Troponin I 0.05 H* (< 0.04) ng/mL - Impressions ITS Impressions Chest X-Ray 03/27/19 12:36 IMPRESSION: No significant change in small right pleural effusion interstitial prominence in the lung bases. D/ / Osiris Khan MD / Osiris Khan MD Interpreting Provider: Osiris Khan MD - Assessment and Plan (1) Chest pain Current Visit: Yes Status: Acute Assessment and plan: Will admit the pt into Tele for observation Will place pt on hybrid derivatives trader check serial troponin Initial troponin slightly elevated @ 0.05 Cont trend on trop, if trop keep going up will start pt on heparin gtt EKG reviewed - No acute ischemic changes noticed Cont home med ASA, Metoprolol, Imdur, Statin and Ranexa Will check FLP in AM Consulted Card for further eval.. He may need repeat LHC since he is keep coming back with typical left chest wall pain, especially with his previous h/o CAD s.p CABG he is a hihg risk pt. NPO after mid night Qualifiers: Chest pain type: unspecified (2) CKD (chronic kidney disease) stage 3, GFR 30-59 ml/min Current Visit: No Status: Chronic Assessment and plan: stable Cr at baseline (3) Lung mass Current Visit: No Status: Acute Assessment and plan: reviewed Biopsy results - no malignancy noticed need to f/u with Heme Onc as an out for further work up Counseled to quit smoking (4) CAD (coronary artery disease) Current Visit: No Status: Chronic Assessment and plan: Resumed all home medications Qualifiers: Coronary Disease-Associated Artery/Lesion type: bypass graft [place] vs. transplanted heart: [place] heart Associated angina: with unstable angina Qualified Code(s): I25.700 - Atherosclerosis of coronary artery bypass graft(s), unspecified, with unstable angina pectoris (5) CHF (congestive heart failure) Current Visit: No Status: Chronic Assessment and plan: Not in exacerbation resumed all home medications Qualifiers: Heart failure type: systolic Heart failure chronicity: chronic Qualified Code(s): I50.22 - Chronic systolic (congestive) heart failure (6) COPD (chronic obstructive pulmonary disease) Current Visit: No Status: Chronic Assessment and plan: Chronic home oxygen dependent at 3 lit - chronic hypoxic respiratory failure not in exacerbation now cont home inhalers continue oxygen Qualifiers: COPD type: COPD with acute exacerbation Qualified Code(s): J44.1 - Chronic obstructive pulmonary disease with (acute) exacerbation (7) HTN (hypertension) Current Visit: No Status: Chronic Assessment and plan: Stable blood pressure with current home medications Qualifiers: Hypertension type: essential hypertension Qualified Code(s): I10 - Essential (primary) hypertension (8) Ischemic cardiomyopathy Current Visit: No Status: Chronic (9) Tobacco dependence Current Visit: No Status: Chronic Assessment and plan: Counseled to quit smoking placed on nicotine patch - Time Spent With Patient Total time spent is greater than 50% in coordination of care (as documented) at patient's floor/unit and/or counseling patient:
[2019-03-27] MEDS: Ranolazine 500 MG TAB.ER.12H PO SCH (21:22)
[2019-03-27] MEDS: Budesonide/Formoterol 160/4.5 1 PUFF INH IH SCH (22:13)
[2019-03-27] MEDS: Ipratropium/Albuterol Neb 3 ML IH PRN (22:13)
--- NOTE | 2019-03-28 01:30 | Event Note ---
Date of Encounter: 03/28/19 Time of Encounter: 22:05 Patient was complaining of chest pain. He had been given 8 mg IV morphine in ED, but states its effect has worn off. He has Galt, but won't take it because "pills don't work for me." His pain is sternal with some radiation to left shoulder and worse with palpation. No numbness/tingling of extremities. He also had diffuse wheezing on lung auscultation, but wasn't complaining of shortness of breath. He had 2 troponins in ED, which showed 0.05. Stat trop was also 0.05. Stat EKG showed no acute ischemic changes and no change from EKG in ED. Cardiology is already consulted. I gave patient another 4 mg of IV morphine for pain. He won't take nitroglycerin because it makes him nauseated. Duoneb breathing treatment ordered for wheezing.
[2019-03-28] MEDS: *HR* HYDROcodone/Acet 5/325 mg TABLET PO PRN ×2 (02:42→10:15)
[2019-03-28] MEDS ORDERED: Acetaminophen IV 500 MG/50 ML INFUS..BTL IVPB ONE (04:16)
[2019-03-28 05:18] LABS: Calcium 8.3 mg/dL (8.6-10.3); Chol/HDL Ratio 2.6 (0-4.9); Potassium 4.9 mEq/L (3.5-5.1)
[2019-03-28] MEDS: Budesonide/Formoterol 160/4.5 1 PUFF INH IH SCH ×2 (08:12→20:18)
[2019-03-28] MEDS: Ipratropium/Albuterol Neb 3 ML IH PRN (08:15)
[2019-03-28] MEDS ORDERED: Furosemide 20 MG TABLET PO SCH (09:00)
--- NOTE | 2019-03-28 10:08 | Cardiology Consult Note ---
Date of Encounter: 03/28/19 Time of Encounter: 10:06 Assessment and Plan (1) Chest pain Current Visit: Yes Status: Acute Patient presents with atypical chest pain made worse with inspiration and palpation of anterior chest wall. Suspect pleuritic component in setting of COPD exacerbation and musculoskeletal etiology. Patient reports improvement with pain medications. Cardiac workup is negative. Negative serial troponins with no new or acute ECG findings. Recent LHC at [facility] - awaiting medical records. Limited Echo ordered for LV function and wall motion. Qualifiers: Chest pain type: unspecified Qualified Code(s): R07.9 - Chest pain, unspecified (2) CAD (coronary artery disease) Current Visit: No Status: Chronic Known history of CAD, CABG and PCI. Reportedly had C [facility] without intervention recently which we are requesting. Prior assessment of LV systolic function is normal. Recommend continuing medical therapy - asa, statin, BB, long acting nitrate. Qualifiers: Coronary Disease-Associated Artery/Lesion type: bypass graft [place] vs. transplanted heart: [place] heart Associated angina: with unstable angina Qualified Code(s): I25.700 - Atherosclerosis of coronary artery bypass graft(s), unspecified, with unstable angina pectoris Discussion w patient/family: The assessment and plan as outlined above was discussed with the patient and/or family members who expressed understanding and agreement. All questions were answered. Thank you for involving us in the care of your patient. Please call with any questions. History of Present Illness Consult date: 03/28/19 Requesting physician: Vanessa Zeng Consult reason: chest pain Chief complaint: chest pain History of present illness: Mr. Ruggiero is a 73 year old male presenting with chest pain. Patient recently admitted in February for similar complaints. At the bedside, the patient is sleeping but arousable. He is in no acute distress. He states that he's having chest pain described as left sided radiating around pacemaker site and down left arm. States that this started overnight and has not changed in quality or severity. No exacerbating symptoms. Also admits to worsening chest pain with inspiration along with worsening dyspnea. Past Med Surg Social Fam HX - Past Medical History Medical history: CHF, COPD, coronary artery disease, hypertension, kidney stones, myocardial infarction Additional medical history: [employer] [place] Psychiatric history: PTSD - Past Surgical History Surgical History: angioplasty/stent, appendectomy, coronary bypass (CABG) Additional surgical history: 7 stents, CABG (approximately 2006) - Social History Smoking Status: Current every day smoker Smokeless Tobacco Status: No Alcohol use: none Drug use: none - Family History Mother Living Status: Hx Family Cardiac Disorders: Yes ("bad heart") Hx Family Cancer: Yes (Colon Cancer) Father Living Status: Hx Family Cardiac Disorders: Yes ([place]) Hx Family Cancer: Yes (Lung Cancer) Medications and Allergies Zolpidem Tartrate 5 mg PO HS PRN 11/08/17 [History] Furosemide [Lasix] 20 mg PO DAILY #5 tablet 11/09/17 [Rx] Albuterol Sulfate [Albuterol Inhaler] 2 puff IH Q4HR PRN 02/22/19 [History] Ipratropium/Albuterol Neb [Duoneb] 3 ml IH Q4HR PRN 02/22/19 [History] Metoprolol XL (24 HR) Succ [Toprol Xl] 25 mg PO DAILY 02/22/19 [History] Terazosin [Hytrin] 10 mg PO HS 02/25/19 [History] Atorvastatin [Lipitor] 40 mg PO HS #30 tablet 02/28/19 [Rx] Budesonide/Formoterol 160/4.5 [Symbicort 160/4.5] 2 puff IH BIDR #1 inh 02/28/19 [Rx] Isosorbide MONOnitrate (24 HR) [Imdur] 60 mg PO DAILY #30 tab.er.24h 03/17/19 [Rx] Ranolazine [Ranexa] 500 mg PO BID #60 tab.er.12h 03/17/19 [Rx] predniSONE [PredniSONE] 40 mg PO DAILY #3 tablet 03/17/19 [Rx] Allergy/AdvReac Type Severity Reaction Status Date / Time nitroglycerin Allergy See Verified 03/07/19 14:12 Comments hydromorphone [From Dilaudid] AdvReac Hallucinati Verified 03/07/19 14:12 ng ketorolac [From Toradol] AdvReac Hallucinati Verified 03/07/19 14:12 ng All Systems Review: The remainder of the systems were reviewed and are negative - Cardiovascular Cardiovascular: as per HPI, chest pain at rest, dyspnea at rest, dyspnea on exertion - Respiratory Respiratory: dyspnea Physical Examination Vital Signs, Last 4 Hours Temp Pulse Resp BP Pulse Ox 03/28/19 08:15 16 96 03/28/19 07:36 97.5 F L 81 20 109/74 99 General: Conversant, No Apparent Distress HEENT: Atraumatic, Normocephaly, Mucus Membranes Moist Neck: No JVD Cardiac: Reg Rate and Rhythm, Normal S1 and S2, No Murmur Lungs: Other (diminished air entry, diffuse wheeze and rhonchi, no rales) Neuro: Alert and responsive, No focal deficits noted Abdomen: Soft, Non-Tender, Other (normal bowel sounds) Musculoskeletal: Other (left sided chest wall tenderness upon palpation) Extremities: No Edema Results 03/27/19 12:52 03/28/19 04:08 Lab Results 03/27/19 03/27/19 03/27/19 12:52 12:52 12:52 WBC 6.5 Hgb 13.1 Hct 43.9 Plt Count 136 L INR 1.1 APTT 29.4 Sodium Potassium Chloride Carbon Dioxide BUN Creatinine Glucose Calcium Troponin I B-Natriuretic Peptide 2116 H 03/27/19 03/27/19 03/27/19 12:52 18:00 22:30 WBC Hgb Hct Plt Count INR APTT Sodium 138 Potassium 4.2 Chloride 106 Carbon Dioxide 24 BUN 24 H Creatinine 1.52 H Glucose 161 H Calcium 8.7 Troponin I 0.05 H* 0.05 H* 0.05 H* B-Natriuretic Peptide 03/28/19 03/28/19 04:08 04:08 WBC Hgb Hct Plt Count INR APTT Sodium 136 Potassium 4.9 Chloride 106 Carbon Dioxide 23 BUN 25 H Creatinine 1.66 H Glucose 103 Calcium 8.3 L Troponin I 0.05 H* B-Natriuretic Peptide - Imaging and Cardiology Chest Xray: report reviewed (No acute ECG findings and no change when compared to prior) Consult Discharge Plan - Plan Referrals: Ashley Arnett CNP [Primary Care Provider] - (Appointment has been requested)
[2019-03-28] MEDS: Metoprolol XL (24 HR) Succ 25 MG TAB.ER.24H PO SCH (10:15)
[2019-03-28] MEDS: Ranolazine 500 MG TAB.ER.12H PO SCH ×2 (10:15→20:40)
[2019-03-28] MEDS: Isosorbide MONOnitrate (24 HR) 30 MG TAB.ER.24H PO SCH (10:16)
--- NOTE | 2019-03-28 11:06 | Electrocardiograph Report ---
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
[2019-03-28] MEDS ORDERED: Perflutren Lipid Microsphere 1.3 ML in 0.9 % Sodium Chloride 8.7 ML IVP ONE (13:26)
--- NOTE | 2019-03-28 13:59 | Internal Med Progress Note ---
Hospitalist Progress Note - Encounter Date of Encounter: 03/28/19 Time of Encounter: 12:00 - Subjective Interval History: Mr. Ruggiero is a 73 year old male with known past medical history of hypertension, hyperlipidemia, CAD status post CABG, CKD-3, ischemic cardiomyopathy status post AICD, Systolic CHF with EF 20 %, who recently had LHC with no interventions at [facility], since and patient present to our hospital 3 times with left chest wall pain radiating to his left shoulder recently left AMA on 03/17/19, now he came back to ER again with the left chest wall pain radiating to his left shoulder. Patient stated his pain is more like continuous pain, relieved by IV pain medication only. In the ER his initial troponin @ 0.05. EKG did not show any acute ischemic changes. 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 His serila troponin slightly elevated at 0.05. he still c/o Left shoulder and chest wall pain. He also c/o mild SOB and b/l LE edema too. - Exam Vitals: Temp Pulse Resp BP Pulse Ox 97.6 F 65 20 96/61 97 03/28/19 11:09 03/28/19 11:09 03/28/19 11:09 03/28/19 11:03/28/19 11:09 Exam: Gen: Alert, awake, Oriented to time,place and person Chest: Diminished breath sounds B/L, No wheezing, No crackles, No rales, mild tenderness on Left chest wall region around the AICD area Heart: S1S2+ RRR No murmurs Abd: Soft, NT, BS +, No organomegaly Ext: Limited ROM in left shoulder due to pain.No edema, pulses are palpable, No calf tenderness Neuro : Benign findings Skin: No rash. - Assessment and Plan (1) Chest pain Current Visit: Yes Status: Acute Assessment and Plan: Cont on substitute crossing guard Serial troponin slightly and chronically elevated @ 0.05 and adynamic mostly due demand ischemia EKG reviewed - No acute ischemic changes noticed Cont home med ASA, Metoprolol, Imdur, Statin and Ranexa Consulted Card for further eval.. Card recommend to review his LHC from [facility] to decide about further intervention such as repeat LHC here Will try to get medical records from [facility] NPO after mid night (2) CKD (chronic kidney disease) stage 3, GFR 30-59 ml/min Current Visit: No Status: Chronic Assessment and Plan: stable Cr at baseline (3) Lung mass Current Visit: No Status: Acute Assessment and Plan: reviewed Biopsy results - no malignancy noticed need to f/u with Heme Onc as an out for further work up Counseled to quit smoking Consulted Pulmonary for further eval (4) CAD (coronary artery disease) Current Visit: No Status: Chronic Assessment and Plan: Resumed all home medications (5) CHF (congestive heart failure) Current Visit: No Status: Chronic Assessment and Plan: He might have mild exacerbation Changed his Lasix to IV 20mg BID cont close monitoring resumed all other home meds (6) COPD (chronic obstructive pulmonary disease) Current Visit: No Status: Chronic Assessment and Plan: Chronic home oxygen dependent at 3 lit - chronic hypoxic respiratory failure not in exacerbation now cont home inhalers continue oxygen (7) HTN (hypertension) Current Visit: No Status: Chronic Assessment and Plan: Stable blood pressure with current home medications (8) Ischemic cardiomyopathy Current Visit: No Status: Chronic (9) Tobacco dependence Current Visit: No Status: Chronic Assessment and Plan: Counseled to quit smoking placed on nicotine patch (10) Left shoulder pain Current Visit: Yes Status: Acute Assessment and Plan: Ordered Left shoulder X ray cont PO norco - Time Spent with Patient Total time spent is greater than 50% in coordination of care (as documented) at patient's floor/unit and/or counseling patient: Internal Medicine: Result - Labs CBC & Chem 7: 03/27/19 12:52 03/28/19 04:08 Labs: BMP 03/28/19 04:08 Sodium 136 Potassium 4.9 Chloride 106 Carbon Dioxide 23 BUN 25 H Creatinine 1.66 H Glucose 103 Calcium 8.3 L Cardiac Enzymes 03/27/19 03/27/19 03/28/19 Range/Units 18:00 22:30 04:08 Troponin I 0.05 H* 0.05 H* 0.05 H* (< 0.04) ng/mL - ABG Interpretation ABG results: PT/INR, D-dimer PT 12.3 Seconds (9.4-12.1) H 03/27/19 12:52 Consult Discharge Plan - Plan Referrals: Ashley Arnett CLINICAL RESOURCE DIRECTOR [Primary Care Provider] - (Appointment has been requested) Veronica Horowitz CNP [Advanced Practice Nurse] - (1) Chest pain Qualifiers: Chest pain type: unspecified (4) CAD (coronary artery disease) Qualifiers: Coronary Disease-Associated Artery/Lesion type: bypass graft [place] vs. transplanted heart: [place] heart Associated angina: with unstable angina Qu alified Code(s): I25.700 - Atherosclerosis of coronary artery bypass graft(s), unspecified, with unstable angina pectoris (5) CHF (congestive heart failure) Qualifiers: Heart failure type: systolic Heart failure chronicity: chronic Qualified Code(s): I50.22 - Chronic systolic (congestive) heart failure (6) COPD (chronic obstructive pulmonary disease) Qualifiers: COPD type: COPD with acute exacerbation Qualified Code(s): J44.1 - Chronic obstructive pulmonary disease with (acute) exacerbation (7) HTN (hypertension) Qualifiers: Hypertension type: essential hypertension Qualified Code(s): I10 - Essential (primary) hypertension (10) Left shoulder pain Qualifiers: Chronicity: acute Qualified Code(s): M25.512 - Pain in left shoulder
--- NOTE | 2019-03-28 15:14 | Electrocardiograph Report ---
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
[2019-03-28] MEDS: Furosemide 20 MG/2 ML VIAL IVP SCH (16:15)
[2019-03-29] MEDS: *HR* HYDROcodone/Acet 5/325 mg TABLET PO PRN ×2 (01:53→08:31)
[2019-03-29 05:25] LABS: Potassium 4.5 mEq/L (3.5-5.1)
[2019-03-29 05:36] LABS: Magnesium 2.1 mg/dL (1.6-2.6)
[2019-03-29] MEDS: Budesonide/Formoterol 160/4.5 1 PUFF INH IH SCH (08:01)
[2019-03-29] MEDS: Furosemide 20 MG/2 ML VIAL IVP SCH (08:31)
[2019-03-29] MEDS ORDERED: Aspirin 81 MG TAB.CHEW PO SCH (09:00)
[2019-03-29] MEDS: Metoprolol XL (24 HR) Succ 25 MG TAB.ER.24H PO SCH (11:36)
[2019-03-29 11:37] VITALS: BP 99/57
[2019-03-29] MEDS: Isosorbide MONOnitrate (24 HR) 30 MG TAB.ER.24H PO SCH (11:37)
[2019-03-29] MEDS: Ranolazine 500 MG TAB.ER.12H PO SCH (11:37)
--- NOTE | 2019-03-29 12:23 | Cardiology Progress Note ---
Date of Encounter: 03/29/19 Time of Encounter: 12:12 Assessment and Plan (1) Chest pain Current Visit: Yes Status: Acute Patient presents with atypical chest pain made worse with inspiration, palpation, and cough of anterior chest wall. States it is not the same as he experienced prior to previous stents/CABG. Suspect pleuritic component in setting of COPD exacerbation and musculoskeletal etiology. Patient reports improvement with pain medications. Cardiac workup included troponin at 0.05x4. Note chonic troponin elevation likely related to CKD. No acute ECG findings. Limited scho shows EF 20-25%. Unachanged from prior TTE. No indication for f urther cardiac testing. Patient agrees with plan. Pt follows with Dr. Ramirez at [facility]. Recommend 2 week f/u. Qualifiers: Chest pain type: unspecified Qualified Code(s): R07.9 - Chest pain, unspecified (2) CAD (coronary artery disease) Current Visit: No Status: Chronic Known history of CAD, CABG and PCI. Reported possible recent LHC at [facility]. Records obtained. Last LHC report from 2016. LHC showed EF 30-35% 2/3 patent bypass grafts (FISCHER-LAD and SVG-OM.) SVG to RCA with 80% stenosis/ thrombus. He received PTCA and thrombectomy. Recommend continuing medical therapy - asa, statin, BB, long acting nitrate. Qualifiers: Coronary Disease-Associated Artery/Lesion type: bypass graft [place] vs. transplanted heart: [place] heart Associated angina: with unstable angina Qualified Code(s): I25.700 - Atherosclerosis of coronary artery bypass graft(s), unspecified, with unstable angina pectoris (3) CHF (congestive heart failure) Current Visit: No Status: Chronic H/o of chronic systolic CHF. EF 20-25%. H/o ICD. Acute on chronic during stay with elevated BNP. CHF showed small pleural effusion. IV lasix given during stay. Symptoms multifactoral with COPD. Net negative 1650. On my exam denies SOB and orthopnea. Transition to oral lasix at discharge. Strict I&O and daily weights. Low sodium diet. Qualifiers: Heart failure type: systolic Heart failure chronicity: chronic Qualified Code(s): I50.22 - Chronic systolic (congestive) heart failure Discussion w patient/family: The assessment and plan as outlined above was discussed with the patient and/or family members who expressed understanding and agreement. All questions were answered. Thank you for involving us in the care of your patient. Please call with any questions. Subjective Principal diagnosis: chest pain Interval history: Pt continues to have atypical chest pain that increases with movement of arms, palpation, and cough. Notes wheezing. Patient cannot remember if he had a heart cath during his last work-up at [facility] in January. Records obtained. Last [facility] received was 2016. Objective Vital Signs, Last 4 Hours Temp Pulse Resp BP Pulse Ox 03/29/19 11:33 97.9 F 72 14 99/57 98 General: Conversant, No Apparent Distress HEENT: Atraumatic, Normocephaly, Mucus Membranes Moist Neck: No JVD, Normal carotid pulses Cardiac: Reg Rate and Rhythm, Normal S1 and S2, No Murmur Lungs: Normal Breath Sounds, No Wheeze, Rales, Rhonchi Neuro: Alert and responsive, No focal deficits noted Abdomen: Soft, Non-Tender Skin: No rashes noted on visualized skin Musculoskeletal: No Chest Wall Tenderness Extremities: No Clubbing, No Cyanosis, No Edema, Normal Pulses Results 03/27/19 12:52 03/29/19 03:55 Lab Results 03/29/19 03:55 Sodium 136 Potassium 4.5 Chloride 107 Carbon Dioxide 24 BUN 32 H Creatinine 2.01 H Glucose 120 H Calcium 8.0 L Magnesium 2.1 - Imaging and Cardiology Echo: report reviewed Cardiac cath: report reviewed - EKG Interpretation EKG results cardiology: personally reviewed Consult Discharge Plan - Plan Referrals: Ashley Arnett CNP [Primary Care Provider] - (Appointment has been requested) Veronica Horowitz CNP [Advanced Practice Nurse] -
--- NOTE | 2019-03-29 14:07 | Discharge Summary ---
- NOTES TO OUTPATIENT PROVIDER Notes to Outpatient Provider: Follow up with PCP in one week. f/u with Delivery Engineer Dr. Ramirez in 1-2 weeks. Date of Encounter: 03/29/19 Time of Encounter: 14:01 - Discharge Diagnosis (1) Chest pain Priority: Primary Status: Acute Qualifiers: Chest pain type: unspecified (2) CKD (chronic kidney disease) stage 3, GFR 30-59 ml/min Priority: Secondary Status: Chronic (3) Lung mass Priority: Secondary Status: Acute (4) CAD (coronary artery disease) Priority: Secondary Status: Chronic Qualifiers: Coronary Disease-Associated Artery/Lesion type: bypass graft [place] vs. transplanted heart: [place] heart Associated angina: with unstable angina Qualified Code(s): I25.700 - Atherosclerosis of coronary artery bypass graft(s), unspecified, with unstable angina pectoris (5) CHF (congestive heart failure) Priority: Secondary Status: Chronic Qualifiers: Heart failure type: systolic Heart failure chronicity: chronic Qualified Code(s): I50.22 - Chronic systolic (congestive) heart failure (6) COPD (chronic obstructive pulmonary disease) Priority: Secondary Status: Chronic Qualifiers: COPD type: COPD with acute exacerbation Qualified Code(s): J44.1 - Chronic obstructive pulmonary disease with (acute) exacerbation (7) HTN (hypertension) Priority: Secondary Status: Chronic Qualifiers: Hypertension type: essential hypertension Qualified Code(s): I10 - Essential (primary) hypertension (8) Ischemic cardiomyopathy Priority: Secondary Status: Chronic (9) Tobacco dependence Priority: Secondary Status: Chronic (10) Left shoulder pain Priority: Secondary Status: Acute Qualifiers: Chronicity: acute Qualified Code(s): M25.512 - Pain in left shoulder Hospital course: Mr. Ruggiero is a 73 year old male with known past medical history of hypertension, hyperlipidemia, CAD status post CABG, CKD-3, ischemic cardiomyopathy status post AICD, Systolic CHF with EF 20 %, who recently had LHC with no interventions at [facility], since and patient present to our hospital 3 times with left chest wall pain radiating to his left shoulder recently left AMA on 03/17/19, now he came back to ER again with the left chest wall pain radiating to his left shoulder. Patient stated his pain is more like continuous pain, relieved by IV pain medication only. In the ER EKG did not show any acute ischemic changes. 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 His serial troponin slightly elevated and adynamic at 0.05. He was evaluated by Delivery Engineer who reviewed his 2 D echo which did not show any septal / wall motion abnormality. Pt had all his cardiac work up through Dr. Ramirez at [facility], so he was recommend to f.u with Dr. Ramirez as an out pt. I did on awake counselor the pt to quit smoking. His Left shoulder pain seem to be due to DJD. - Time Spent with Patient Total time spent providing and/or coordinating discharge services: - Discharge Medications Prescriptions: New HYDROcodone/Acet 5/325 mg [[place] 5-325 mg] 1 tab PO Q8HR PRN 5 Days #10 tablet PRN Reason: Moderate Pain Continued Zolpidem Tartrate 5 mg PO HS PRN PRN Reason: SLEEP Furosemide [Lasix] 20 mg PO DAILY #5 tablet Albuterol Sulfate [Albuterol Inhaler] 2 puff IH Q4HR PRN PRN Reason: sob/wheezing Ipratropium/Albuterol Neb [Duoneb] 3 ml IH Q4HR PRN PRN Reason: sob/wheezing Metoprolol XL (24 HR) Succ [Toprol Xl] 25 mg PO DAILY Atorvastatin [Lipitor] 40 mg PO HS #30 tablet Budesonide/Formoterol 160/4.5 [Symbicort 160/4.5] 2 puff IH BIDR #1 inh Ranolazine [Ranexa] 500 mg PO BID #60 tab.er.12h Isosorbide MONOnitrate (24 HR) [Imdur] 60 mg PO DAILY #30 tab.er.24h Terazosin HCl 10 mg PO HS Tiotropium [place] [Spiriva Respimat] 2 puff IH DAILY Home Medications: Zolpidem Tartrate 5 mg PO HS PRN 11/08/17 [History] Furosemide [Lasix] 20 mg PO DAILY #5 tablet 11/09/17 [Rx] Albuterol Sulfate [Albuterol Inhaler] 2 puff IH Q4HR PRN 02/22/19 [History] Ipratropium/Albuterol Neb [Duoneb] 3 ml IH Q4HR PRN 02/22/19 [History] Metoprolol XL (24 HR) Succ [Toprol Xl] 25 mg PO DAILY 02/22/19 [History] Atorvastatin [Lipitor] 40 mg PO HS #30 tablet 02/28/19 [Rx] Budesonide/Formoterol 160/4.5 [Symbicort 160/4.5] 2 puff IH BIDR #1 inh 02/28/19 [Rx] Isosorbide MONOnitrate (24 HR) [Imdur] 60 mg PO DAILY #30 tab.er.24h 03/17/19 [Rx] Ranolazine [Ranexa] 500 mg PO BID #60 tab.er.12h 03/17/19 [Rx] Terazosin HCl 10 mg PO HS 03/28/19 [History] Tiotropium [place] [Spiriva Respimat] 2 puff IH DAILY 03/28/19 [History] HYDROcodone/Acet 5/325 mg [[place] 5-325 mg] 1 tab PO Q8HR PRN 5 Days #10 tablet 03/29/19 [Rx] Allergies/Adverse Reactions: Allergy/AdvReac Type Severity Reaction Status Date / Time nitroglycerin Allergy See Verified 03/07/19 14:12 Comments hydromorphone [From Dilaudid] AdvReac Hallucinati Verified 03/07/19 14:12 ng ketorolac [From Toradol] AdvReac Hallucinati Verified 03/07/19 14:12 ng Date of admission: 03/27/19 19:41 Primary care physician: Ashley Arnett, Consults: 03/27/19 15:49 Consult to Cardiology [CONS] Stat Comment: Consulting Provider: Cardiology [facility] Reason for Consult: chest pain Time Notified: 15:49 Call Completed: Yes 03/28/19 13:03 Consult to Pulmonology [CONS] Routine Consulting Provider: Pulm [facility] Reason for Consult: lung mass Time Notified: 13:03 Call Completed: Yes - Constitutional Vitals: Temp Pulse Resp BP Pulse Ox 97.9 F 72 14 99/57 98 03/29/19 11:33 03/29/19 11:33 03/29/19 11:33 03/29/19 11:33 03/29/19 11:33 General appearance: Present: cooperative, A&O X 3, answers questions appropriately Exam: Gen: Alert, awake, Oriented to time,place and person Chest: Diminished breath sounds B/L, No wheezing, No crackles, No rales, mild tenderness on Left chest wall region around the AICD area Heart: S1S2+ RRR No murmurs Abd: Soft, NT, BS +, No organomegaly Ext: Limited ROM in left shoulder due to pain.No edema, pulses are palpable, No calf tenderness Neuro : Benign findings Skin: No rash. - Patient Status Disposition: Home, Self-Care Condition: Good Overall status at discharge: patient is back to baseline - Discharge Instructions Instructions: Chest Pain (DC), How to Stop Smoking (DC), How to Stop Smoking (GEN), Acute Kidney Injury (DC), Cigarette Smoking and Your Health (GEN), Chronic Obstructive Pulmonary Disease (DC), Thrombocytopenia (DC), Cigarette Smoking and Your Health, Mixing Tank Operator (GEN), How to Stop Smoking, Mixing Tank Operator (GEN), Lung Ventilation and Perfusion (VQ) Scan, Mixing Tank Operator (GEN) Follow Up With: Veronica Horowitz CNP [Advanced Practice Nurse] - 04/05/19 1:40 pm () Steve Ramirez DO [Non-Partnered Physician] - Ye Pete MD [Partnered Physician] - - Diet and Activity Activity: increase activity as tolerated Diet: low salt diet
== END 2019-03-29 14:48 | disposition home or self-care (01) ==
LOC: 3BNU 12:21 → EMEROOARM 12:21 → SUATTDRO 19:41 → 3BNU 21:07
PROVIDERS: ADMIT Internal Medicine; ATTEND Family Medicine

== ENCOUNTER 2019-06-04 08:35 | Observation (INO) ==
[2019-06-04] MEDS ORDERED: Aspirin 81 MG TAB.CHEW PO ONE (08:38)
[2019-06-04] MEDS ORDERED: Ipratropium/Albuterol Neb 3 ML IH ONE (08:49)
[2019-06-04] MEDS ORDERED: methylPREDNISolone 125 MG/2 ML VIAL IVP ONE (08:57)
[2019-06-04] MEDS ORDERED: *HR* FentaNYL (PF) 100 MCG/2 ML VIAL IVP ONE (08:57)
[2019-06-04 09:20] LABS: Basophils % 0.3 %; Eosinophils # 0.1 K/mcL (0.0-0.6); Eosinophils % 1.8 %; Hematocrit 37.9 % (37.5-50.1); Hemoglobin 11.5 g/dL (12.9-16.9); Immature Granulocytes % 0.5 % (0-4); Lymphocytes # 0.7 K/mcL (0.6-4.6); Lymphocytes % 10.3 %; Mean Corpuscular HGB Conc 30.3 g/dL (31.6-35.5); Mean Corpuscular Hemoglobin 25.1 pg (28.0-33.3); Mean Corpuscular Volume 82.8 fL (83.0-100.0); Mean Platelet Volume 10.1 fL (9.4-12.4); Monocytes # 0.4 K/mcL (0.0-1.3); Monocytes % 6.5 %; Neutrophils # 5.3 K/mcL (1.6-8.9); Platelet Count 112 K/mcL (140-400); Red Blood Count 4.58 M/mcL (4.19-5.50); Segmented Neutrophils % 80.6 %; White Blood Count 6.6 K/mcL (4.3-11.1)
[2019-06-04 09:29] LABS: INR 1.2; Prothrombin Time 13.5 Seconds (9.4-12.1)
[2019-06-04 09:32] LABS: Activated Partial Thrombo Time 28.7 Seconds (26.0-36.0)
[2019-06-04 09:37] LABS: Calcium 8.6 mg/dL (8.6-10.3); Potassium 4.4 mEq/L (3.5-5.1)
[2019-06-04 09:41] LABS: Troponin I 0.05 ng/mL (< 0.04)
[2019-06-04] MEDS ORDERED: Naloxone 0.4 MG/ML INJ IVP PRN ×2 (09:44→11:05)
[2019-06-04] MEDS ORDERED: Ondansetron 4 MG/2 ML VIAL IVP PRN (11:05)
[2019-06-04] MEDS ORDERED: Acetaminophen 325 MG TABLET PO PRN (11:05)
[2019-06-04] MEDS ORDERED: *HR* OxyCODONE Immed Rel 5 MG TABLET PO PRN (13:30)
[2019-06-04] MEDS: Ipratropium/Albuterol Neb 3 ML IH SCH ×3 (13:31→20:57)
[2019-06-04] MEDS: Furosemide 40 MG in 0.9 % Sodium Chloride 50 ML IV SCH ×2 (13:56→18:17)
[2019-06-04] MEDS: Azithromycin 250 MG TABLET PO SCH (13:56)
[2019-06-04] MEDS: Morphine Sulfate Oral CONC 10 MG/0.5 ML ORAL.SYG SL PRN ×2 (14:34→21:38)
[2019-06-04] MEDS ORDERED: Morphine Sulfate 2 MG/ML SYRINGE IVP ONE (16:40)
[2019-06-04] MEDS ORDERED: Tiotropium 18 MCG inhalation IH PRN (16:45)
[2019-06-04] MEDS ORDERED: Budesonide/Formoterol 160/4.5 1 PUFF INH IH PRN (16:45)
[2019-06-04] MEDS: *HR* Heparin 5,000 UNIT/ML VIAL SQ SCH (18:17)
[2019-06-05] MEDS: Ipratropium/Albuterol Neb 3 ML IH SCH ×4 (03:39→23:16)
[2019-06-05 06:23] LABS: Basophils % 0.2 %; Hematocrit 37.8 % (37.5-50.1); Hemoglobin 11.3 g/dL (12.9-16.9); Immature Granulocytes % 0.7 % (0-4); Lymphocytes # 0.4 K/mcL (0.6-4.6); Lymphocytes % 6.7 %; Mean Corpuscular HGB Conc 29.9 g/dL (31.6-35.5); Mean Corpuscular Hemoglobin 24.5 pg (28.0-33.3); Mean Platelet Volume 9.5 fL (9.4-12.4); Monocytes # 0.3 K/mcL (0.0-1.3); Monocytes % 5.4 %; Neutrophils # 5.3 K/mcL (1.6-8.9); Platelet Count 110 K/mcL (140-400); Red Blood Count 4.61 M/mcL (4.19-5.50); White Blood Count 6.1 K/mcL (4.3-11.1)
[2019-06-05] MEDS: *HR* Heparin 5,000 UNIT/ML VIAL SQ SCH ×2 (06:25→17:21)
[2019-06-05 06:45] LABS: Magnesium 2.2 mg/dL (1.6-2.6); Phosphorous 4.8 mg/dL (2.7-4.5); Potassium 4.3 mEq/L (3.5-5.1)
[2019-06-05] MEDS: Azithromycin 250 MG TABLET PO SCH (08:55)
[2019-06-05] MEDS: Furosemide 40 MG in 0.9 % Sodium Chloride 50 ML IV SCH (08:55)
[2019-06-05] MEDS: predniSONE 20 MG TABLET PO SCH (08:56)
[2019-06-05] MEDS ORDERED: Perflutren Lipid Microsphere 1.3 ML in 0.9 % Sodium Chloride 8.7 ML IVP ONE (11:19)
[2019-06-05] MEDS ORDERED: Furosemide 40 MG/4 ML VIAL IVP SCH (17:00)
[2019-06-06] MEDS ORDERED: Acetaminophen IV 500 MG/50 ML INFUS..BTL IVPB ONE (01:03)
[2019-06-06] MEDS: Ipratropium/Albuterol Neb 3 ML IH SCH ×2 (03:57→10:26)
[2019-06-06] MEDS: *HR* Heparin 5,000 UNIT/ML VIAL SQ SCH (05:05)
[2019-06-06 08:04] LABS: Calcium 9.1 mg/dL (8.6-10.3); Magnesium 2.1 mg/dL (1.6-2.6); Potassium 3.9 mEq/L (3.5-5.1)
[2019-06-06] MEDS ORDERED: Morphine Sulfate Oral CONC 10 MG/0.5 ML ORAL.SYG SL PRN (08:16)
[2019-06-06] MEDS ORDERED: Regadenoson 0.4 MG/5 ML SYRINGE IVP ONE (11:06)
[2019-06-06 12:58] VITALS: BP 114/76
[2019-06-06] MEDS: predniSONE 20 MG TABLET PO SCH (13:43)
[2019-06-06] MEDS: Azithromycin 250 MG TABLET PO SCH (13:43)
== END 2019-06-06 15:53 | disposition home health service (06) ==
LOC: EMEROOARM 08:35 → 3ANU 08:35 → SUATTDRO 10:48 → 3ANU 11:39
PROVIDERS: ADMIT Internal Medicine; ATTEND Internal Medicine

== ENCOUNTER 2019-06-12 14:01 | Inpatient (IN) ==
[2019-06-12] MEDS ORDERED: Ipratropium/Albuterol Neb 3 ML IH ONE (14:15)
[2019-06-12] MEDS ORDERED: methylPREDNISolone 125 MG/2 ML VIAL IVP ONE (14:16)
[2019-06-12] MEDS ORDERED: Aspirin 325 MG TABLET PO ONE (14:16)
--- NOTE | 2019-06-12 14:17 | Emergency Department Note ---
Disposition Clinical Impression: COPD exacerbation Respiratory failure Qualifiers: Chronicity: acute Respiratory failure complication: unspecified whether with hypoxia or hypercapnia Qualified Code(s): J96.00 - Acute respiratory failure, unspecified whether with hypoxia or hypercapnia CHF (congestive heart failure) Qualifiers: Heart failure type: unspecified Heart failure chronicity: acute on chronic Qualified Code(s): I50.9 - Heart failure, unspecified Disposition: Admitted As Inpatient Condition: Fair Time of Disposition: 14:10 General Adult HPI - General Stated complaint: CP,JIAN Time Seen by Provider: 06/12/19 14:08 - Related Data Home Medications Medication Instructions Recorded Confirmed Albuterol Sulfate [Proventil 2 puff IH Q4HR PRN 05/30/19 06/12/19 Inhaler] Ferrous Sulfate [Iron] 325 mg PO DAILY 05/30/19 06/12/19 Ipratropium/Albuterol Sulfate 3 ml IH Q6H PRN 05/30/19 06/12/19 [Iprat-Albut 0.5-3(2.5) mg/3 ml] Budesonide/Formoterol 160/4.5 2 puff IH BID PRN 06/04/19 06/12/19 [Symbicort 160/4.5] Tiotropium [place] [Spiriva 2 puff IH DAILY PRN 06/04/19 06/12/19 Respimat] Metoprolol [Lopressor] 25 mg PO DAILY 06/12/19 06/12/19 Previous Rx's Medication Instructions Recorded Furosemide [Lasix] 20 mg PO DAILY #1 tablet 06/06/19 Allergies Allergy/AdvReac Type Severity Reaction Status Date / Time nitroglycerin Allergy See Verified 06/04/19 08:42 Comments hydromorphone [From Dilaudid] AdvReac Hallucinati Verified 06/04/19 08:42 ng ketorolac [From Toradol] AdvReac Hallucinati Verified 06/04/19 08:42 ng Past Medical History - Past Medical History Medical history: Reports: CHF, COPD, coronary artery disease, hypertension, kid cici stones, myocardial infarction, other Surgical history: Reports: pacemaker/AICD, other, AICD, pacemaker Psychiatric history: Reports: PTSD - Social History Smoking Status: Current every day smoker Smokeless Tobacco Status: No Alcohol use: Reports: none Drug use: Reports: none Course Vital Signs Temperature 97.5 F L 06/12/19 14:15 Pulse Rate 82 06/12/19 14:15 Respiratory Rate 23 06/12/19 14:15 Blood Pressure 129/79 06/12/19 14:15 O2 Sat by Pulse Oximetry 100 06/12/19 14:15 Temperature 97.9 F 06/12/19 18:00 Pulse Rate 82 06/12/19 18:00 Respiratory Rate 24 06/12/19 18:00 Blood Pressure 131/93 06/12/19 18:00 O2 Sat by Pulse Oximetry 100 06/12/19 18:00 Oxygen Delivery Oxygen Delivery Bipap Medical Decision Making - Lab Data Result diagrams: 06/12/19 14:27 06/12/19 14:27 Lab Results 06/12/19 06/12/19 06/12/19 Range/Units 14:27 14:27 14:27 WBC 9.5 (4.3-11.1) K/mcL RBC 5.60 H (4.19-5.50) M/mcL Hgb 13.8 (12.9-16.9) g/dL Hct 45.9 (37.5-50.1) % MCV 82.0 L (83.0-100.0) fL MCH 24.6 L (28.0-33.3) pg MCHC 30.1 L (31.6-35.5) g/dL RDW 19.9 H (11.5-14.5) % Plt Count 131 L (140-400) K/mcL MPV 9.8 (9.4-12.4) fL Immature Gran % 0.7 (0-4) % Seg Neutrophils % 78.1 % Lymphocytes % 11.1 % Monocytes % 6.8 % Eosinophils % 3.0 % Basophils % 0.3 % Neutrophils # 7.4 (1.6-8.9) K/mcL Lymphocytes # 1.1 (0.6-4.6) K/mcL Monocytes # 0.6 (0.0-1.3) K/mcL Eosinophils # 0.3 (0.0-0.6) K/mcL Basophils # 0.0 (0.0-0.2) K/mcL PT 13.0 H (9.4-12.1) Seconds INR 1.1 Sodium 141 (136-145) mEq/L Potassium 3.9 (3.5-5.1) mEq/L Chloride 104 (98-107) mEq/L Carbon Dioxide 27 (23-29) mEq/L BUN 34 H (8-23) mg/dL Creatinine 1.76 H (0.70-1.30) mg/dL Est GFR ( Amer) 46 L (> 60) Est GFR (Non-Af Amer) 38 L (> 60) BUN/Creatinine Ratio 19 (6-26) Glucose 83 (70-105) mg/dL Calculated Osmolality 299 (280-300) Lactic Acid (0.5-2.2) mmol/L Calcium 9.2 (8.6-10.3) mg/dL Troponin I 0.05 H* (< 0.04) ng/mL B-Natriuretic Peptide (Less than 100) pg/mL 06/12/19 06/12/19 Range/Units 14:27 14:27 WBC (4.3-11.1) K/mcL RBC (4.19-5.50) M/mcL Hgb (12.9-16.9) g/dL Hct (37.5-50.1) % MCV (83.0-100.0) fL MCH (28.0-33.3) pg MCHC (31.6-35.5) g/dL RDW (11.5-14.5) % Plt Count (140-400) K/mcL MPV (9.4-12.4) fL Immature Gran % (0-4) % Seg Neutrophils % % Lymphocytes % % Monocytes % % Eosinophils % % Basophils % % Neutrophils # (1.6-8.9) K/mcL Lymphocytes # (0.6-4.6) K/mcL Monocytes # (0.0-1.3) K/mcL Eosinophils # (0.0-0.6) K/mcL Basophils # (0.0-0.2) K/mcL PT (9.4-12.1) Seconds INR Sodium (136-145) mEq/L Potassium (3.5-5.1) mEq/L Chloride (98-107) mEq/L Carbon Dioxide (23-29) mEq/L BUN (8-23) mg/dL Creatinine (0.70-1.30) mg/dL Est GFR ( Amer) (> 60) Est GFR (Non-Af Amer) (> 60) BUN/Creatinine Ratio (6-26) Glucose (70-105) mg/dL Calculated Osmolality (280-300) Lactic Acid 2.0 (0.5-2.2) mmol/L Calcium (8.6-10.3) mg/dL Troponin I (< 0.04) ng/mL B-Natriuretic Peptide 4184 H (Less than 100) pg/mL Critical Care Time Critical Care Time: Yes Total Critical Care Time: 40 Attestation: Critical care performed: Time is exclusive of separately billable procedures. Time includes: direct patient care, patient reassessment, coordination of patient care, interpretation of data (laboratory data, radiology data, and respiratory data), review of patient's medical records, medical consultation and documentation of patient care. Procedures included in critical care time: Procedures excluded from critical care time: Attestation Statement - Attestation Attestation: I examined this patient and my medical decision-making was reviewed with the Resident Physician. I agree with the documented findings, disposition and treatment plan as described except to the extent set forth below. Patient to the ED with a chief complaint of shortness of breath. Onset 1 week ago. Cough productive of phlegm. No fever. He is having pain in his chest rating to his back and right shoulder blade as well. History of coronary disease with quadruple bypass and 7 coronary stents. He also has a history of CHF and COPD. On exam he is tachypneic in mild respiratory distress. Diffuse expiratory wheezing and crackles in the left base. Plan. Cardiac workup. Nebs and steroids. Reevaluate. EKG was reviewed with the resident. No acute ischemic changes. Patient not improving significantly. We will trial him on BiPAP. Chest x-ray is also concerning for some interstitial edema. IV Lasix ordered. Elevated BNP. Troponin was also positive. Aspirin ordered. He is admitted to medicine. He is tolerating BiPAP at the time of admission. Chest X-Ray 06/12/19 14:15 IMPRESSION: Mild congestive heart failure improved from 1 week earlier. D/ / 06/12/2019 14:46:05 Mj Sanchez MD / [email or web address] Interpreting Provider: Mj Sanchez MD
[2019-06-12] MEDS ORDERED: Morphine Sulfate 2 MG/ML SYRINGE IVP ONE (14:35)
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
[2019-06-12 14:46] LABS: Basophils % 0.3 %; Eosinophils # 0.3 K/mcL (0.0-0.6); Hematocrit 45.9 % (37.5-50.1); Hemoglobin 13.8 g/dL (12.9-16.9); Immature Granulocytes % 0.7 % (0-4); Lymphocytes # 1.1 K/mcL (0.6-4.6); Lymphocytes % 11.1 %; Mean Corpuscular HGB Conc 30.1 g/dL (31.6-35.5); Mean Corpuscular Hemoglobin 24.6 pg (28.0-33.3); Mean Platelet Volume 9.8 fL (9.4-12.4); Monocytes # 0.6 K/mcL (0.0-1.3); Monocytes % 6.8 %; Neutrophils # 7.4 K/mcL (1.6-8.9); Platelet Count 131 K/mcL (140-400); Red Cell Distribution Width 19.9 % (11.5-14.5); Segmented Neutrophils % 78.1 %; White Blood Count 9.5 K/mcL (4.3-11.1)
[2019-06-12] MEDS ORDERED: Furosemide 40 MG/4 ML VIAL IVP ONE (14:57)
[2019-06-12 14:59] LABS: INR 1.1
[2019-06-12 15:10] LABS: Troponin I 0.05 ng/mL (< 0.04)
[2019-06-12 15:18] LABS: Calcium 9.2 mg/dL (8.6-10.3); Potassium 3.9 mEq/L (3.5-5.1)
--- NOTE | 2019-06-12 15:31 | Emergency Department Note ---
Disposition Referrals: Veronica Horowitz CNP [Primary Care Provider] - SOB HPI - General Stated Complaint: CP,JIAN Time Seen by Provider: 06/12/19 14:08 Source: patient Limitations: no limitations Nursing Notes Reviewed: Yes Vital Signs Reviewed: Yes - Related Data Home Medications Medication Instructions Recorded Confirmed Albuterol Sulfate [Proventil 2 puff IH Q4HR PRN 05/30/19 06/04/19 Inhaler] Ferrous Sulfate [Iron] 325 mg PO DAILY 05/30/19 06/04/19 Ipratropium/Albuterol Sulfate 3 ml IH Q6H PRN 05/30/19 06/04/19 [Iprat-Albut 0.5-3(2.5) mg/3 ml] Budesonide/Formoterol 160/4.5 2 puff IH BID PRN 06/04/19 06/04/19 [Symbicort 160/4.5] Tiotropium [place] [Spiriva 2 puff IH DAILY PRN 06/04/19 06/04/19 Respimat] Metoprolol [Lopressor] 25 mg PO DAILY 06/12/19 06/12/19 Previous Rx's Medication Instructions Recorded Furosemide [Lasix] 20 mg PO DAILY #1 tablet 06/06/19 Allergies Allergy/AdvReac Type Severity Reaction Status Date / Time nitroglycerin Allergy See Verified 06/04/19 08:42 Comments hydromorphone [From Dilaudid] AdvReac Hallucinati Verified 06/04/19 08:42 ng ketorolac [From Toradol] AdvReac Hallucinati Verified 06/04/19 08:42 ng Past Medical History - Past Medical History Medical history: Reports: CHF, COPD, coronary artery disease, hypertension, kidney stones, myocardial infarction, other Surgical history: Reports: pacemaker/AICD, other, AICD, pacemaker Psychiatric history: Reports: PTSD - Social History Smoking Status: Current every day smoker Smokeless Tobacco Status: No Alcohol use: Reports: none Drug use: Reports: none Physical Exam - General Limitations: no limitations General appearance: alert, in distress Course Vital Signs Temperature 97.5 F L 06/12/19 14:15 Pulse Rate 82 06/12/19 14:15 Respiratory Rate 23 06/12/19 14:15 Blood Pressure 129/79 06/12/19 14:15 O2 Sat by Pulse Oximetry 100 06/12/19 14:15 Temperature 97.5 F L 06/12/19 14:15 Pulse Rate 82 06/12/19 15:24 Respiratory Rate 26 06/12/19 15:24 Blood Pressure 124/95 06/12/19 15:24 O2 Sat by Pulse Oximetry 100 06/12/19 15:24 Oxygen Delivery Oxygen Delivery Bipap Shortness of Breath/Dyspnea - Lab Data Result diagrams: 06/12/19 14:27 06/12/19 14:27 Lab Results 06/12/19 06/12/19 06/12/19 Range/Units 14:27 14:27 14:27 WBC 9.5 (4.3-11.1) K/mcL RBC 5.60 H (4.19-5.50) M/mcL Hgb 13.8 (12.9-16.9) g/dL Hct 45.9 (37.5-50.1) % MCV 82.0 L (83.0-100.0) fL MCH 24.6 L (28.0-33.3) pg MCHC 30.1 L (31.6-35.5) g/dL RDW 19.9 H (11.5-14.5) % Plt Count 131 L (140-400) K/mcL MPV 9.8 (9.4-12.4) fL Immature Gran % 0.7 (0-4) % Seg Neutrophils % 78.1 % Lymphocytes % 11.1 % Monocytes % 6.8 % Eosinophils % 3.0 % Basophils % 0.3 % Neutrophils # 7.4 (1.6-8.9) K/mcL Lymphocytes # 1.1 (0.6-4.6) K/mcL Monocytes # 0.6 (0.0-1.3) K/mcL Eosinophils # 0.3 (0.0-0.6) K/mcL Basophils # 0.0 (0.0-0.2) K/mcL PT 13.0 H (9.4-12.1) Seconds INR 1.1 Sodium 141 (136-145) mEq/L Potassium 3.9 (3.5-5.1) mEq/L Chloride 104 (98-107) mEq/L Carbon Dioxide 27 (23-29) mEq/L BUN 34 H (8-23) mg/dL Creatinine 1.76 H (0.70-1.30) mg/dL Est GFR ( Amer) 46 L (> 60) Est GFR (Non-Af Amer) 38 L (> 60) BUN/Creatinine Ratio 19 (6-26) Glucose 83 (70-105) mg/dL Calculated Osmolality 299 (280-300) Lactic Acid (0.5-2.2) mmol/L Calcium 9.2 (8.6-10.3) mg/dL Troponin I 0.05 H* (< 0.04) ng/mL B-Natriuretic Peptide (Less than 100) pg/mL 06/12/19 06/12/19 Range/Units 14:27 14:27 WBC (4.3-11.1) K/mcL RBC (4.19-5.50) M/mcL Hgb (12.9-16.9) g/dL Hct (37.5-50.1) % MCV (83.0-100.0) fL MCH (28.0-33.3) pg MCHC (31.6-35.5) g/dL RDW (11.5-14.5) % Plt Count (140-400) K/mcL MPV (9.4-12.4) fL Immature Gran % (0-4) % Seg Neutrophils % % Lymphocytes % % Monocytes % % Eosinophils % % Basophils % % Neutrophils # (1.6-8.9) K/mcL Lymphocytes # (0.6-4.6) K/mcL Monocytes # (0.0-1.3) K/mcL Eosinophils # (0.0-0.6) K/mcL Basophils # (0.0-0.2) K/mcL PT (9.4-12.1) Seconds INR Sodium (136-145) mEq/L Potassium (3.5-5.1) mEq/L Chloride (98-107) mEq/L Carbon Dioxide (23-29) mEq/L BUN (8-23) mg/dL Creatinine (0.70-1.30) mg/dL Est GFR ( Amer) (> 60) Est GFR (Non-Af Amer) (> 60) BUN/Creatinine Ratio (6-26) Glucose (70-105) mg/dL Calculated Osmolality (280-300) Lactic Acid 2.0 (0.5-2.2) mmol/L Calcium (8.6-10.3) mg/dL Troponin I (< 0.04) ng/mL B-Natriuretic Peptide 4184 H (Less than 100) pg/mL
--- NOTE | 2019-06-12 16:58 | Internal Med History&Physical ---
<Bryn Mcclure N - Last Filed: 06/12/19 18:18> Date of Encounter: 06/12/19 Time of Encounter: 16:56 Internal Medicine - H&P: HPI Chief complaint: Shortness of breath Admitted From: Home Plans for Post Hospital Care: Home History of present illness: Mr. Ruggiero is a 73 year old male with a past medical history significant for COPD, CHF with EF of 15%, CAD post CABG and 7 stents, AAA, and CKD stage III. The patient states he started feeling more short of breath with dry cough this morning which is progressively worsened until coming into the ER today. Patient has a long history of orthopnea, inability to sleep flat, waking up in the middle of the night short of breath, and pedal edema. Patient states he manages his own medications and misses his Lasix doses frequently. He states he last took his Lasix yesterday that he remembers, but does not know when he took it before then. Patient states he had a cardiac catheter with stenting at some point over the past few months, but is not currently on any anticoagulation/antiplatelet therapy. Patient also complaining of right sided chest wall pain radiating to his right scapula and down to his hip which he states has been there for a long period of time. The patient denies fever, chills, abdominal pain, nausea, vomiting, diarrhea, or sputum production. In the ED patient was given 325 milligrams of aspirin, Lasix 40 mg IV, 125 mg methylprednisone, and was placed on BiPAP. EKG NSR with QT of 477. CXR with no acute processes Past Med Surg Social Fam HX - Past Medical History Medical history: CHF, COPD, coronary artery disease, hypertension, kidney stones, myocardial infarction, other Additional medical history: Agent [place], AAA, black lung dx, anemia, chest pain, pacemaker/defib implant, lung mass Psychiatric history: PTSD - Past Surgical History Surgical History: pacemaker/AICD, other, AICD, pacemaker Additional surgical history: 7 stents, CABG (approximately 2006), back surgery, stomach - Social History Smoking Status: Current every day smoker Smokeless Tobacco Status: No Alcohol use: none Drug use: none - Family History Mother Living Status: Hx Family Cardiac Disorders: Yes ("bad heart") Hx Family Cancer: Yes (Colon Cancer) Father Living Status: Hx Family Cardiac Disorders: Yes ([place]) Hx Family Cancer: Yes (Lung Cancer) Internal Medicine - H&P: Meds Albuterol Sulfate [Proventil Inhaler] 2 puff IH Q4HR PRN 05/30/19 [History] Ferrous Sulfate [Iron] 325 mg PO DAILY 05/30/19 [History] Ipratropium/Albuterol Sulfate [Iprat-Albut 0.5-3(2.5) mg/3 ml] 3 ml IH Q6H PRN 05/30/19 [History] Budesonide/Formoterol 160/4.5 [Symbicort 160/4.5] 2 puff IH BID PRN 06/04/19 [History] Tiotropium [place] [Spiriva Respimat] 2 puff IH DAILY PRN 06/04/19 [History] Furosemide [Lasix] 20 mg PO DAILY #1 tablet 06/06/19 [Rx] Metoprolol [Lopressor] 25 mg PO DAILY 06/12/19 [History] Allergy/AdvReac Type Severity Reaction Status Date / Time nitroglycerin Allergy See Verified 06/04/19 08:42 Comments hydromorphone [From Dilaudid] AdvReac Hallucinati Verified 06/04/19 08:42 ng ketorolac [From Toradol] AdvReac Hallucinati Verified 06/04/19 08:42 ng All Systems PM: A 10-system review of systems was performed and is negative for pertinent findings except as documented above in the HPI. - Constitutional Constitutional: no chills, no fatigue - EENT Eyes: no blurry vision, no change in vision Nose, mouth and throat: no nasal congestion, no sore throat - Cardiovascular Cardiovascular ROS IM: chest pain, dyspnea, edema - Respiratory Respiratory: cough, no excessive phlegm production - Gastrointestinal Gastrointestinal: no abdominal pain, no change in bowel habits, no diarrhea, no nausea, no vomiting - Genitourinary Genitourinary ROS male: no difficulty urinating, no dysuria, no hematuria - Musculoskeletal Musculoskeletal ROS IM: no numbness, no tingling - Integumentary Integumentary IM: no skin ulcer, no sores - Neurological Neurological ROS: no confusion, no loss of vision, no numbness, no weakness - Psychiatric Psychiatric: no anxiety, no depression - Constitutional Vitals: Temp Pulse Resp BP Pulse Ox 97.5 F L 82 24 133/72 100 06/12/19 14:15 06/12/19 16:07 06/12/19 16:07 06/12/19 16:07 06/12/19 16:07 General appearance: Present: cooperative, mild distress, A&O X 3, answers questions appropriately Exam: alert - Head Head exam: Present: atraumatic, normocephalic - Eye Eye exam: Present: EOMI, sclera anicteric - Neck Neck exam general surgery: Present: supple, trachea midline - Respiratory Respiratory exam: Present: respiratory distress, wheezes. Absent: chest wall tenderness - Cardiovascular Cardiovascular exam: Present: RRR, +S1, +S2. Absent: diastolic murmur, systolic murmur - GI/Abdominal GI/Abdominal exam: Present: normal bowel sounds, soft. Absent: tenderness - Extremities Exam Extremities exam: Present: full ROM. Absent: tenderness Additional comments: Bilateral 2+ Pitting edema to mid-calf - Neurological Exam Neurological exam: Present: alert, oriented X3 - Psychiatric Psychiatric exam: Present: normal affect, normal mood Internal Med - H&P Results - Labs CBC & Chem 7: 06/12/19 14:27 06/12/19 14:27 Labs: Short CBC 06/12/19 Range/Units 14:27 WBC 9.5 (4.3-11.1) K/mcL Hgb 13.8 (12.9-16.9) g/dL Hct 45.9 (37.5-50.1) % Plt Count 131 L (140-400) K/mcL Neutrophils # 7.4 (1.6-8.9) K/mcL BMP 06/12/19 14:27 Sodium 141 Potassium 3.9 Chloride 104 Carbon Dioxide 27 BUN 34 H Creatinine 1.76 H Glucose 83 Calcium 9.2 Cardiac Enzymes 06/12/19 Range/Units 14:27 Troponin I 0.05 H* (< 0.04) ng/mL - Impressions ITS Impressions Chest X-Ray 06/12/19 14:15 IMPRESSION: Mild congestive heart failure improved from 1 week earlier. D/ 06/12/2019 14:46:05 Mj Sanchez MD / [facility] Interpreting Provider: Mj Sanchez MD - Assessment and Plan (1) CHF exacerbation Current Visit: No Status: Acute Assessment and plan: Patient last echo showed an EF of 15%. Patient with defibrillator in left chest wall Patient with progressive shortness of breath starting this morning and admits to increased frequent Lasix usage at home. Pitting edema of 2+ up to mid calf present. Patient given 40 mg Lasix IV in the ED as well as started on BiPAP. -Continue home metoprolol 25 mg daily -40 mg Lasix IV twice a day started -Strict monitoring of I's and O's -Daily weights Qualifiers: Heart failure type: systolic Qualified Code(s): I50.23 - Acute on chronic systolic (congestive) heart failure (2) COPD exacerbation Current Visit: Yes Status: Acute Assessment and plan: Patient with increasing shortness of breath as well as dry cough On 2 L O2 at home. No fever. Chest x-ray negative for infection. The WBC WNL Given 125 mg of Solu-Medrol in the ED -Solu-medrol 40 mg Q8H -Duonebs Q6H -Mucinex 600 mg BID -Azithromycin 500 mg daily (3) CAD (coronary artery disease) Current Visit: No Status: Chronic Assessment and plan: Pt reporting a Cath with stents in the past few months PSH of a CABG as well as 7 stents. Pt currently on no anticoagulation/antiplatelet therapy at home Troponin chronically elevated and 0.05 at this time EKG with no ischemic changes. -Start on Atorvastatin 80 mg, Aspirin 81 mg, and plavix 75 mg. Qualifiers: Coronary Disease-Associated Artery/Lesion type: bypass graft [place] vs. transplanted heart: [place] heart Associated angina: with unspecified angina Qualified Code(s): I25.709 - Atherosclerosis of coronary artery bypass graft(s), unspecified, with unspecified angina pectoris (4) CKD (chronic kidney disease) stage 3, GFR 30-59 ml/min Current Visit: No Status: Chronic Assessment and plan: Chrome [employer] Operator of 1.76 is pts baseline Start Lasix will monitor for changes -BMP in the morning (5) DVT prophylaxis Current Visit: No Status: Acute Assessment and plan: SCDs - Time Spent With Patient Total time spent is greater than 50% in coordination of care (as documented) at patient's floor/unit and/or counseling patient: <Folaranmi,Supo A - Last Filed: 06/12/19 19:44> Date of Encounter: 06/12/19 Internal Medicine - H&P: HPI History of present illness: Mr. Ruggiero is a 73 year old male All Systems PM: A 10-system review of systems was performed and is negative for pertinent findings except as documented above in the HPI. - Constitutional Vitals: Temp Pulse Resp BP Pulse Ox 97.9 F 82 24 131/93 100 06/12/19 18:00 06/12/19 18:00 06/12/19 18:00 06/12/19 18:00 06/12/19 18:00 Internal Med - H&P Results - Labs CBC & Chem 7: 06/12/19 14:27 06/12/19 14:27 Labs: Short CBC 06/12/19 Range/Units 14:27 WBC 9.5 (4.3-11.1) K/mcL Hgb 13.8 (12.9-16.9) g/dL Hct 45.9 (37.5-50.1) % Plt Count 131 L (140-400) K/mcL Neutrophils # 7.4 (1.6-8.9) K/mcL BMP 06/12/19 14:27 Sodium 141 Potassium 3.9 Chloride 104 Carbon Dioxide 27 BUN 34 H Creatinine 1.76 H Glucose 83 Calcium 9.2 Cardiac Enzymes 06/12/19 Range/Units 14:27 Troponin I 0.05 H* (< 0.04) ng/mL - Impressions ITS Impressions Chest X-Ray 06/12/19 14:15 IMPRESSION: Mild congestive heart failure improved from 1 week earlier. D/ / 06/12/2019 14:46:05 Mj Sanchez MD / [email or web address] Interpreting Provider: Mj Sanchez MD - Time Spent With Patient Total time spent is greater than 50% in coordination of care (as documented) at patient's floor/unit and/or counseling patient: - Attending Attestation I have seen and independently assessed this patient and I agree with plan as documented Plan Acute hypoxic respiratory failure 2/2 to acute COPD exacerbation and acute worsening of chronic systolic cHF. BIPAP, nebs, steroids, antibiotics and diuresis with IV lasix BID
[2019-06-12] MEDS ORDERED: Naloxone 0.4 MG/ML INJ IVP PRN (17:03)
[2019-06-12] MEDS ORDERED: Acetaminophen 325 MG TABLET PO PRN (17:03)
[2019-06-12] MEDS ORDERED: Ipratropium/Albuterol Neb 3 ML IH PRN (17:14)
[2019-06-12] MEDS: Azithromycin 250 MG TABLET PO SCH (20:35)
[2019-06-12] MEDS: Furosemide 40 MG in 0.9 % Sodium Chloride 50 ML IV SCH (21:15)
[2019-06-12] MEDS: Budesonide/Formoterol 160/4.5 1 PUFF INH IH SCH (21:46)
[2019-06-12] MEDS: *HR* HYDROcodone/Acet 5/325 mg TABLET PO PRN (22:17)
[2019-06-13 01:59] LABS: Hematocrit 38.2 % (37.5-50.1); Mean Corpuscular HGB Conc 30.1 g/dL (31.6-35.5); Mean Corpuscular Hemoglobin 24.3 pg (28.0-33.3); Mean Corpuscular Volume 80.8 fL (83.0-100.0); Platelet Count 126 K/mcL (140-400); Red Blood Count 4.73 M/mcL (4.19-5.50); Red Cell Distribution Width 19.1 % (11.5-14.5); White Blood Count 5.3 K/mcL (4.3-11.1)
[2019-06-13 02:08] LABS: Hemoglobin 11.5 g/dL (12.9-16.9)
[2019-06-13 02:19] LABS: Calcium 8.5 mg/dL (8.6-10.3); Chol/HDL Ratio 2.4 (0-4.9)
[2019-06-13] MEDS: *HR* HYDROcodone/Acet 5/325 mg TABLET PO PRN ×2 (06:24→20:54)
[2019-06-13] MEDS ORDERED: Tiotropium 18 MCG inhalation IH SCH (07:00)
--- NOTE | 2019-06-13 07:25 | Internal Med Progress Note ---
<Duglas Starr - Last Filed: 06/13/19 12:18> Hospitalist Progress Note - Encounter Date of Encounter: 06/13/19 - Exam Vitals: Temp Pulse Resp BP Pulse Ox 97.6 F 84 14 129/79 96 06/13/19 07:19 06/13/19 07:19 06/13/19 05:01 06/13/19 07:19 06/13/19 07:19 - Time Spent with Patient Total time spent is greater than 50% in coordination of care (as documented) at patient's floor/unit and/or counseling patient: Internal Medicine: Result - Labs CBC & Chem 7: 06/13/19 01:49 06/13/19 01:49 Labs: Short CBC 06/12/19 06/13/19 Range/Units 14:27 01:49 WBC 9.5 5.3 (4.3-11.1) K/mcL Hgb 13.8 11.5 L D (12.9-16.9) g/dL Hct 45.9 38.2 (37.5-50.1) % Plt Count 131 L 126 L (140-400) K/mcL Neutrophils # 7.4 (1.6-8.9) K/mcL BMP 06/12/19 06/13/19 14:27 01:49 Sodium 141 138 Potassium 3.9 4.0 Chloride 104 105 Carbon Dioxide 27 24 BUN 34 H 44 H Creatinine 1.76 H 2.14 H Glucose 83 203 H Calcium 9.2 8.5 L Cardiac Enzymes 06/12/19 06/12/19 06/13/19 Range/Units 14:27 20:52 01:49 Troponin I 0.05 H* 0.04 H* 0.04 H* (< 0.04) ng/mL - ABG Interpretation ABG results: PT/INR, D-dimer PT 13.0 Seconds (9.4-12.1) H 06/12/19 14:27 - Impressions Impressions Chest X-Ray 06/12/19 14:15 IMPRESSION: Mild congestive heart failure improved from 1 week earlier. D/ / 06/12/2019 14:46:05 Mj Sanchez MD / [facility] Interpreting Provider: Mj Sanchez MD Consult Discharge Plan - Plan Referrals: NONE,PCP [Primary Care Provider] - - Attending Attestation I have seen and independently assessed this patient and I agree with plan as documented Plan Acute hypoxic respiratory failure 2/2 to acute COPD exacerbation and acute worsening of chronic systolic cHF. BIPAP, nebs, steroids, antibiotics and diuresis with IV lasix BID. Improved SULLY on CKD stage 3. Hold IV lasix and start on po lasix from am <Bryn Mcclure - Last Filed: 06/13/19 17:08> Hospitalist Progress Note - Encounter Date of Encounter: 06/13/19 Time of Encounter: 07:24 - Subjective Interval History: Patient is sitting in chair upon entering the room. Patient states he is feeling much better today. Patient's only complaint at this time is right axil la pain radiating to back that is chronic and was improved with "pain shot". Patient denies chest pain, shortness of breath, nausea, vomiting, diarrhea, fever, chills, or abdominal pain - Exam Vitals: Temp Pulse Resp BP Pulse Ox 97.6 F 84 14 129/79 96 06/13/19 07:19 06/13/19 07:19 06/13/19 05:01 06/13/19 07:19 06/13/19 07:19 Exam: Head exam: Present: atraumatic, normocephalic Eye exam: Present: EOMI, no sclera anicteric Neck exam general surgery: Present: supple, trachea midline Respiratory exam: Present: respiratory distress, wheezes. Absent: chest wall tenderness Cardiovascular exam: Present: RRR, +S1, +S2. Absent: diastolic murmur, systolic murmur GI/Abdominal exam: Present: normal bowel sounds, soft. Absent: tenderness Extremities exam: Present: full ROM. Absent: tenderness Bilateral 2+ Pitting edema to mid-calf improving after diuresis Neurological exam: Present: alert, oriented X3 Psychiatric exam: Present: normal affect, normal mood - Assessment and Plan (1) COPD exacerbation Current Visit: Yes Status: Acute Assessment and Plan: Patient with increasing shortness of breath as well as dry cough On 2 L O2 at home. No fever. Chest x-ray negative for infection. The WBC WNL Given 125 mg of Solu-Medrol in the ED Pt improved today -Solu-medrol 40 mg Q8H -Duonebs Q6H -Mucinex 600 mg BID -Azithromycin 500 mg daily (2) CHF exacerbation Current Visit: No Status: Acute Assessment and Plan: Patient last echo showed an EF of 15%. Patient with defibrillator in left chest wall Patient with progressive shortness of breath starting this morning and admits to increased frequent Lasix usage at home. Pitting edema of 2+ up to mid calf present. Patient given 40 mg Lasix IV in the ED as well as started on BiPAP. I&O of -756 Analyst elevated to 2.14 Leg Edema improved -Due to kidney function Lasix held, will start PO tomorrow. -Continue home metoprolol 25 mg daily -Strict monitoring of I's and O's -Daily weights (3) CAD (coronary artery disease) Current Visit: No Status: Chronic Assessment and Plan: Pt reporting a Cath with stents in the past few months PSH of a CABG as well as 7 stents. Pt currently on no anticoagulation/antiplatelet therapy at home Troponin chronically elevated and 0.05 at this time EKG with no ischemic changes. -Start on Atorvastatin 80 mg, Aspirin 81 mg, and plavix 75 mg. (4) CKD (chronic kidney disease) stage 3, GFR 30-59 ml/min Current Visit: No Status: Chronic Assessment and Plan: Analyst up to 2.14 Will hold lasix and switch to PO in the morning -BMP in the morning (5) DVT prophylaxis Current Visit: No Status: Acute Assessment and Plan: SCDs - Time Spent with Patient Total time spent is greater than 50% in coordination of care (as documented) at patient's floor/unit and/or counseling patient: Internal Medicine: Result - Labs CBC & Chem 7: 06/13/19 01:49 06/13/19 01:49 Labs: Short CBC 06/12/19 06/13/19 Range/Units 14:27 01:49 WBC 9.5 5.3 (4.3-11.1) K/mcL Hgb 13.8 11.5 L D (12.9-16.9) g/dL Hct 45.9 38.2 (37.5-50.1) % Plt Count 131 L 126 L (140-400) K/mcL Neutrophils # 7.4 (1.6-8.9) K/mcL BMP 07/22/19 07/23/19 14:27 01:49 Sodium 141 138 Potassium 3.9 4.0 Chloride 104 105 Carbon Dioxide 27 24 BUN 34 H 44 H Creatinine 1.76 H 2.14 H Glucose 83 203 H Calcium 9.2 8.5 L Cardiac Enzymes 06/12/19 06/12/19 06/13/19 Range/Units 14:27 20:52 01:49 Troponin I 0.05 H* 0.04 H* 0.04 H* (< 0.04) ng/mL - ABG Interpretation ABG results: PT/INR, D-dimer PT 13.0 Seconds (9.4-12.1) H 06/12/19 14:27 - Impressions Impressions Chest X-Ray 06/12/19 14:15 IMPRESSION: Mild congestive heart failure improved from 1 week earlier. D/ / 06/12/2019 14:46:05 [facility] Interpreting Provider: Mj Sanchez MD <Bryn Mcclure - Last Filed: 06/13/19 17:08> (2) CHF exacerbation Qualifiers: Heart failure type: systolic Qualified Code(s): I50.23 - Acute on chronic systolic (congestive) heart failure (3) CAD (coronary artery disease) Qualifiers: Coronary Disease-Associated Artery/Lesion type: bypass graft [place] vs. transplanted heart: [place] heart Associated angina: with unspecified angina Qualified Code(s): I25.709 - Atherosclerosis of coronary artery bypass graft(s), unspecified, with unspecified angina pectoris
[2019-06-13] MEDS: Budesonide/Formoterol 160/4.5 1 PUFF INH IH SCH ×2 (07:33→19:40)
[2019-06-13] MEDS: Azithromycin 250 MG TABLET PO SCH (08:37)
[2019-06-13] MEDS: Aspirin 81 MG TAB.CHEW PO SCH (08:37)
[2019-06-13] MEDS: MethylPREDNISolone 40 MG/ML VIAL IVP SCH ×2 (08:37→16:09)
[2019-06-13] MEDS: Furosemide 40 MG in 0.9 % Sodium Chloride 50 ML IV SCH (08:57)
[2019-06-13] MEDS ORDERED: Morphine Sulfate 2 MG/ML SYRINGE IVP ONE (11:05)
--- NOTE | 2019-06-13 14:10 | Electrocardiograph Report ---
[facility] Test Date: 2019-06-12 Pat Name: Ezra Ruggiero Department: [id number] Room: 2NE34 Gender: M [employer]: : 1945 Requested By: Tika See Order Number: [id number] Reading MD: Quinten Qiu Measurements Intervals [place] Rate: 85 P: 28 MA: 196 QRS: 116 QRSD: 123 T: -51 QT: 401 QTc: 477 Interpretive Statements Sinus rhythm Multiform ventricular premature complexes Nonspecific intraventricular conduction delay Inferior infarct, age indeterminate Electronically Signed On 06-13-2019 14:09:05 EDT by Quinten Qiu
[2019-06-14] MEDS: MethylPREDNISolone 40 MG/ML VIAL IVP SCH ×2 (00:30→08:07)
[2019-06-14 04:42] LABS: Calcium 8.6 mg/dL (8.6-10.3); Potassium 4.5 mEq/L (3.5-5.1)
[2019-06-14 07:32] VITALS: BP 118/73
[2019-06-14] MEDS: Budesonide/Formoterol 160/4.5 1 PUFF INH IH SCH (07:56)
[2019-06-14] MEDS: Aspirin 81 MG TAB.CHEW PO SCH (08:07)
[2019-06-14] MEDS: Azithromycin 250 MG TABLET PO SCH (08:07)
[2019-06-14] MEDS: *HR* HYDROcodone/Acet 5/325 mg TABLET PO PRN (08:12)
--- NOTE | 2019-06-14 09:07 | Internal Med Progress Note ---
Hospitalist Progress Note - Encounter Date of Encounter: 06/14/19 Time of Encounter: 09:07 - Exam Vitals: Temp Pulse Resp BP Pulse Ox 97.8 F 82 16 118/73 98 06/14/19 07:27 06/14/19 07:27 06/14/19 07:27 06/14/19 07:27 06/14/19 07:27 - Assessment and Plan (1) COPD exacerbation Current Visit: Yes Status: Acute (2) CHF exacerbation Current Visit: No Status: Acute (3) CAD (coronary artery disease) Current Visit: No Status: Chronic (4) CKD (chronic kidney disease) stage 3, GFR 30-59 ml/min Current Visit: No Status: Chronic (5) DVT prophylaxis Current Visit: No Status: Acute - Time Spent with Patient Total time spent is greater than 50% in coordination of care (as documented) at patient's floor/unit and/or counseling patient: Internal Medicine: Result - Labs CBC & Chem 7: 06/13/19 01:49 06/14/19 03:15 Labs: BMP 06/14/19 03:15 Sodium 139 Potassium 4.5 Chloride 106 Carbon Dioxide 26 BUN 59 H Creatinine 2.61 H Glucose 120 H Calcium 8.6 - ABG Interpretation ABG results: PT/INR, D-dimer PT 13.0 Seconds (9.4-12.1) H 06/12/19 14:27 Consult Discharge Plan - Plan Referrals: NONE,PCP [Primary Care Provider] - (2) CHF exacerbation Qualifiers: Heart failure type: systolic Qualified Code(s): I50.23 - Acute on chronic systolic (congestive) heart failure (3) CAD (coronary artery disease) Qualifiers: Coronary Disease-Associated Artery/Lesion type: bypass graft [place] vs. transplanted heart: [place] heart Associated angina: with unspecified angina Qualified Code(s): I25.709 - Atherosclerosis of coronary artery bypass graft(s), unspecified, with unspecified angina pectoris
--- NOTE | 2019-06-14 10:32 | Discharge Summary ---
- NOTES TO OUTPATIENT PROVIDER Notes to Outpatient Provider: Pt leaving AMA. Told of potential for decompensation or if he decided to leave the hospital. He still wanted to leave. BMP in 1 week to recheck renal function. Orders not resulted at time of discharge: Pending orders 06/15/19 04:00 BMP [Basic Metabolic Panel] AM 0400 06/16/19 04:00 BMP [Basic Metabolic Panel] AM 0400 Date of Encounter: 06/14/19 Time of Encounter: 10:32 - Discharge Diagnosis (1) COPD exacerbation Priority: Primary Status: Acute (2) CHF exacerbation Priority: Secondary Status: Acute Qualifiers: Heart failure type: systolic Qualified Code(s): I50.23 - Acute on chronic systolic (congestive) heart failure (3) CAD (coronary artery disease) Priority: Secondary Status: Chronic Qualifiers: Coronary Disease-Associated Artery/Lesion type: bypass graft [place] vs. transplanted heart: [place] heart Associated angina: with unspecified angina Qualified Code(s): I25.709 - Atherosclerosis of coronary artery bypass graft(s), unspecified, with unspecified angina pectoris (4) CKD (chronic kidney disease) stage 3, GFR 30-59 ml/min Priority: Secondary Status: Chronic (5) DVT prophylaxis Priority: Secondary Status: Acute Hospital course: Mr. Ruggiero is a 73 year old male with a past medical history significant for CHF with EF of 15%, CAD with CABG and 7 stents, COPD, CK-MB stage III and hypertension. Patient presented with worsening of shortness of breath from earlier in the morning. Patient also complained of chronic cough, chest pressure, and worsening leg swelling. In the ED patient was given aspirin, Lasix 40 mg, one 25 mg methylprednisone, and placed on BiPAP. EKG with normal sinus rhythm and QT of 477. Chest x-ray was negative. Patient worked up for suspected COPD exacerbation versus CHF exacerbation. Upon admission Solu-Medrol 40 mg every 8, dual nebs, Mucinex, and azithromycin were started. Patient was not on antiplatelet therapy with a claimed history of recent stent placement, but no records due to being at a different hospital. Records were requested. Patient was started on Plavix and low-dose aspirin as well as Lipitor 80 mg while in hospital. Patient with much improvement on day 2, but creatinine elevated to 2.1. Lasix were held, but day 3 kidney function worsened with a c reatinine of 2.6. Patient then stated he is feeling better and was not leaving the hospital. Discussed with patient the risk of leaving the hospital and the fact that his swelling would worsen as well as the shortness of breath he decided to leave. Also talked about his worsening kidney function that we needed to evaluate. Patient continued to refuse treatment and decided to leave AMA. Patient understood the risk of leaving the hospital including kidney failure, worsening shortness of breath, permanent disability or . Discharge discussed with: patient - Time Spent with Patient Total time spent providing and/or coordinating discharge services: Time spent: Greater than 30 minutes - Discharge Medications Prescriptions: Continued Albuterol Sulfate [Proventil Inhaler] 2 puff IH Q6HR PRN PRN Reason: Shortness Of Breath Ferrous Sulfate [Iron] 325 mg PO DAILY Budesonide/Formoterol 160/4.5 [Symbicort 160/4.5] 2 puff IH BID PRN PRN Reason: Shortness Of Breath Tiotropium [place] [Spiriva Respimat] 2 puff IH DAILY PRN PRN Reason: Shortness Of Breath Furosemide [Lasix] 20 mg PO DAILY #1 tablet Zolpidem [Ambien] 5 mg PO HS Home Medications: Albuterol Sulfate [Proventil Inhaler] 2 puff IH Q6HR PRN 05/30/19 [History] Ferrous Sulfate [Iron] 325 mg PO DAILY 05/30/19 [History] Budesonide/Formoterol 160/4.5 [Symbicort 160/4.5] 2 puff IH BID PRN 06/04/19 [History] Tiotropium [place] [Spiriva Respimat] 2 puff IH DAILY PRN 06/04/19 [History] Furosemide [Lasix] 20 mg PO DAILY #1 tablet 06/06/19 [Rx] Zolpidem [Ambien] 5 mg PO HS 06/13/19 [History] Allergies/Adverse Reactions: Allergy/AdvReac Type Severity Reaction Status Date / Time nitroglycerin Allergy See Verified 06/04/19 08:42 Comments hydromorphone [From Dilaudid] AdvReac Hallucinati Verified 06/04/19 08:42 ng ketorolac [From Toradol] AdvReac Hallucinati Verified 06/04/19 08:42 ng Date of admission: 06/13/19 14:33 Primary care physician: PCP NONE Consults: 06/12/19 17:07 Consult to Division Commander [CONS] Routine Reason for SW Consult: Needs help with medications 06/12/19 18:25 Consult to Division Commander [CONS] Routine Reason for SW Consult: POA PAPERWORK Discharging clinician: Bryn Mcclure - Constitutional Vitals: Temp Pulse Resp BP Pulse Ox 97.8 F 82 16 118/73 98 06/14/19 07:27 06/14/19 07:27 06/14/19 07:27 06/14/19 07:27 06/14/19 07:27 General appearance: Present: cooperative, mild distress, A&O X 3, answers questions appropriately Exam: Head exam: Present: atraumatic, normocephalic Eye exam: Present: EOMI, no sclera anicteric Neck exam general surgery: Present: supple, trachea midline Respiratory exam: Present: respiratory distress, wheezes. Absent: chest wall tenderness Cardiovascular exam: Present: RRR, +S1, +S2. Absent: diastolic murmur, systolic murmur GI/Abdominal exam: Present: normal bowel sounds, soft. Absent: tenderness Extremities exam: Present: full ROM. Absent: tenderness Bilateral 2+ Pitting edema to mid-calf Neurological exam: Present: alert, oriented X3 Psychiatric exam: Present: normal affect, normal mood - Patient Status Disposition: Home, Self-Care Condition: Fair Functional capacity at discharge: independent ambulation Overall status at discharge: patient is progressing back to baseline - Discharge Instructions Follow Up With: Bryn Mcclure DO [Resident] - 07/04/19 1:00 pm Forms: ED Satisfaction Letter - Diet and Activity Activity: wear oxygen at all times Diet: low fat, low cholesterol
[2019-06-14] MEDS ORDERED: Nicotine 2 MG GUM BC PRN (10:59)
[2019-06-14] MEDS ORDERED: Nicotine 7 MG PATCH.TD24 TD SCH (11:00)
--- NOTE | 2019-06-14 11:08 | Internal Med Progress Note ---
Hospitalist Progress Note - Encounter Date of Encounter: 06/14/19 Time of Encounter: 11:08 - Exam Vitals: Temp Pulse Resp BP Pulse Ox 97.8 F 82 16 118/73 98 06/14/19 07:27 06/14/19 07:27 06/14/19 07:27 06/14/19 07:27 06/14/19 07:27 - Assessment and Plan (1) COPD exacerbation Current Visit: Yes Status: Acute (2) CHF exacerbation Current Visit: No Status: Acute (3) CAD (coronary artery disease) Current Visit: No Status: Chronic (4) CKD (chronic kidney disease) stage 3, GFR 30-59 ml/min Current Visit: No Status: Chronic (5) DVT prophylaxis Current Visit: No Status: Acute - Time Spent with Patient Total time spent is greater than 50% in coordination of care (as documented) at patient's floor/unit and/or counseling patient: Internal Medicine: Result - Labs CBC & Chem 7: 06/13/19 01:49 06/14/19 03:15 Labs: BMP 06/14/19 03:15 Sodium 139 Potassium 4.5 Chloride 106 Carbon Dioxide 26 BUN 59 H Creatinine 2.61 H Glucose 120 H Calcium 8.6 - ABG Interpretation ABG results: PT/INR, D-dimer PT 13.0 Seconds (9.4-12.1) H 06/12/19 14:27 Consult Discharge Plan - Plan Referrals: NONE,PCP [Primary Care Provider] - (2) CHF exacerbation Qualifiers: Heart failure type: systolic Qualified Code(s): I50.23 - Acute on chronic systolic (congestive) heart failure (3) CAD (coronary artery disease) Qualifiers: Coronary Disease-Associated Artery/Lesion type: bypass graft [place] vs. transplanted heart: [place] heart Associated angina: with unspecified angina Qualified Code(s): I25.709 - Atherosclerosis of coronary artery bypass graft(s), unspecified, with unspecified angina pectoris
== END 2019-06-14 15:53 | disposition home or self-care (01) | DRG 291 ==
LOC: EMEROOARM 14:01 → 2NENU 14:01 → SUATTDRO 06-13 14:33
PROVIDERS: ADMIT Student in an Organized Health Care Education/Training Program; ATTEND Internal Medicine